=== PATIENT | male | born 1940 | race Caucasian/White ===

== ENCOUNTER → 2016-05-10 | Outpatient (CLI) | payer MEDICARE, BC ==
--- NOTE | 2016-05-10 08:41 | US ---
EXAMINATION TYPE: US abdomen complete DATE OF EXAM: 05/10/2016 8:14 AM COMPARISON: NONE CLINICAL HISTORY: R74.8 Elevated Liver Enzymes. EXAM MEASUREMENTS: Liver Length: 15.6 cm Gallbladder Wall: 0.3 cm CBD: 0.4 cm Spleen: 11.8 cm Right Kidney: 11.2 x 5.5 x 4.1 cm Left Kidney: 10.9 x 5.5 x 5.6 cm TECHNOLOGIST IMPRESSION: Pancreas: obscured by overlying bowel content Liver: limited evaluation,attenuating and slightly heterogenous Gallbladder: no evidence of stones Evidence for sonographic James's sign: no CBD: appears wnl Spleen: wnl Right Kidney: Nonshadowing echogenic area lower pole = 0.6cm nonspecific finding. Left Kidney: no evidence of hydronephrosis Upper IVC: wnl Abd Aorta: visualized portions appear wnl The liver is heterogeneously hyperechoic suggesting fatty infiltration. No worrisome intrahepatic refugio john dilatation is seen . Evaluation for focal masses is limited due to the heterogeneity. The intrahe patic portion of the IVC and visualized abdominal aorta are within normal limits. There is no eviden ce of cholelithiasis. Common bile duct is unremarkable. The visualized portions of the pancreas are homogenous. Portions of pancreas are obscured by overlying bowel gas. The spleen is unremarkable. Ki dneys are symmetric and free of hydronephrosis. No renal lesions are seen. IMPRESSION: Heterogeneous hyperechoic appearance could reflect fatty infiltration or underlying hepat ocellular disease. Imaging guided random biopsy for tissue analysis can be performed if desired.
== END | disposition home or self-care (01) ==
LOC: RADUSWWP 07:34
PROVIDERS: ATTEND Family Medicine
DX: K76.5 Hepatic veno-occlusive disease (principal); R74.8 Abnormal levels of other serum enzymes
CPT/HCPCS: 76700

== ENCOUNTER 2016-05-12 13:31 | Inpatient (IN) | payer MEDICARE, BC ==
[2016-05-12] MEDS ORDERED: MORPHINE SULFATE 4 MG/ML SYRINGE IVP STA (14:49)
[2016-05-12] MEDS ORDERED: SODIUM CHLORIDE 0.9% 1,000 ML IV STA (14:49)
[2016-05-12] MEDS ORDERED: ONDANSETRON 4 MG/2 ML VIAL IVP STA (14:49)
[2016-05-12 15:07] LABS: Basophils % (A) 0 %; CH 33.2; CHCM 32.6; Eosinophils % (A) 0 %; HCT 41.6 % (39.0-53.0); HDW 2.22; HGB 13.3 gm/dL (13.0-17.5); Luc # (Auto) 0.16; Luc % (Auto) 2; Lymphocytes # (A) 0.6 k/uL (1.0-4.8); Lymphocytes % (A) 7 %; MCH 32.8 pg (25.0-35.0); MCV 102.5 fL (80.0-100.0); Macrocytosis Slight; Mean Platelet Volume 8.3; Monocytes # (A) 0.6 k/uL (0-1.0); Monocytes % (A) 7 %; Neutrophils # (A) 7.6 k/uL (1.3-7.7); Neutrophils % (A) 84 %; RBC 4.06 m/uL (4.30-5.90); RDW 13.3 % (11.5-15.5); WBC (Perox) 8.59
[2016-05-12 15:09] LABS: Appearance,Urine Clear (Clear); Bacteria,Urine Few /hpf; Bilirubin,Urine 2+ (Negative); Glucose,Urine (UA) Negative (Negative); Ketones,Urine Trace (Negative); Leukocyte Esterase,Urine Negative (Negative); Mucus,Urine Moderate /hpf; Nitrite,Urine Negative (Negative); PH, Urine 5.5 (5.0-8.0); Particle Count 6674; Protein,Urine 1+ (Negative); RBC,Urine <1 /hpf (0-5); Specific Gravity,Urine 1.015 (1.001-1.035); UA Billing (MACRO vs. MICRO) MICRO; WBC,Urine 1 /hpf (0-5)
[2016-05-12 15:14] LABS: INR 1.2 (<1.1); Partial Thromboplastin Time 24.8 sec (22.0-30.0)
[2016-05-12 15:15] LABS: ALT 243 U/L (21-72); AST 241 U/L (17-59); Alkaline Phosphatase 543 U/L (38-126); Anion Gap 15 mmol/L; Blood Urea Nitrogen 18 mg/dL (9-20); Calcium 8.8 mg/dL (8.4-10.2); Carbon Dioxide 20 mmol/L (22-30); Chloride 99 mmol/L (98-107); Glucose 174 mg/dL (74-99); Non-African American GFR(MDRD) >60 (>60 ml/min/1.73 sqM); Potassium 4.4 mmol/L (3.5-5.1); Sodium 134 mmol/L (137-145); Total Bilirubin 8.3 mg/dL (0.2-1.3); Total Protein 6.9 g/dL (6.3-8.2)
--- NOTE | 2016-05-12 15:20 | XR ---
EXAMINATION TYPE: XR chest 1V portable DATE OF EXAM: 05/12/2016 3:13 PM Comparison: 03/21/2014 Clinical History: 75-year-old male chest pain Findings: Heart is upper limits of normal in size. Mild interstitial prominence appears chronic. High density n odule peripheral left upper lobe is unchanged suggesting a calcified granuloma. Strandy atelectasis a t the right base. No consolidation or pleural effusion. Impression: Chronic changes and some right basilar atelectasis. Prior granulomatous disease. No acute process jayro ntified.
--- NOTE | 2016-05-12 16:10 | ED ---
Abdominal Pain HPI - General Chief Complaint: Abdominal Pain Stated Complaint: Back Pain Time Seen by Provider: 05/12/16 14:20 Source: patient Mode of arrival: ambulatory Limitations: no limitations - History of Present Illness Initial Comments: Patient is a 75 old male with history of diabetes, hypertension, hyperlipidemia presenting with epigastric pain which radiates to the right flank/back. Patient states symptoms started approximately 3 days ago. Patient has not tried anything for the pain. Patient does not relate pain to food. noticed patient skin change to yellow. Patient wasn't feeling well for the past week he complained of nausea for which he follow-up with PCP who prescribed him Zofran ODT. Patient admits to chills 3 days ago. Denies fever, chest pain, shortness breath, vomiting, diarrhea, dysuria. - Related Data Home Medications Medication Instructions Recorded Confirmed Levothyroxine Sodium [Synthroid] 50 mcg PO DAILY 03/29/14 05/12/16 Lovastatin [Lovastatin] 40 mg PO DAILY 03/29/14 05/12/16 metFORMIN HCL 1,000 mg PO BID 03/29/14 05/12/16 Aspirin EC [Ecotrin Low Dose] 81 mg PO DAILY 05/12/16 05/12/16 Insulin Detemir [Levemir] 20 unit SQ QAM 05/12/16 05/12/16 Insulin Detemir [Levemir] 30 unit SQ W/SUPPER 05/12/16 05/12/16 Lisinopril 40 mg PO DAILY 05/12/16 05/12/16 Vit A/Vit C/Vit E/Zinc/Copper 1 cap PO DAILY 05/12/16 05/12/16 [ICAPS SOFTGEL] amLODIPine [Norvasc] 10 mg PO DAILY 05/12/16 05/12/16 Allergies Allergy/AdvReac Type Severity Reaction Status Date / Time bacitracin Allergy Rash/Hives Verified 05/12/16 14:52 [From Neosporin ([id number])] bacitracin zinc Allergy Rash/Hives Verified 05/12/16 14:52 [From Neosporin ([id number])] neomycin sulfate Allergy Rash/Hives Verified 05/12/16 14:52 [From Neosporin ([id number])] polymyxin B Allergy Rash/Hives Verified 05/12/16 14:52 [From Neosporin ([id number])] Review of Systems ROS Statement: Those systems with pertinent positive or pertinent negative responses have been documented in the HPI. Constitutional: No fever and +chills. HENT: No congestion, no rhinorrhea and no sore throat. Eyes: No discharge and no redness. Respiratory: No cough and no shortness of breath. Cardiovascular: No chest pain and no palpitations. Gastrointestinal: +nausea, no vomiting, +abdominal pain and no diarrhea. Genitourinary: No dysuria and no hematuria. Musculoskeletal: No back pain and no arthralgias. Skin: Positive jaundice. No pallor and no rash. Neurological: No dizziness and No headaches. ROS Other: All systems not noted in ROS Statement are negative. Past Medical History Past Medical History: Diabetes Mellitus, GERD/Reflux, Hyperlipidemia, Hypertension, Thyroid Disorder History of Any Multi-Drug Resistant Organisms: None Reported Past Surgical History: Orthopedic Surgery Additional Past Surgical History / Comment(s): tamiko shoulder Past Psychological History: No Psychological Hx Reported Smoking Status: Never smoker Past Alcohol Use History: None Reported Past Drug Use History: None Reported General Exam - General Exam Comments Initial Comments: Constitutional: Patient appears well-developed and well-nourished. Moderate distress. Head: Normocephalic and atraumatic. Eyes: Conjunctivae and EOM are normal. Right eye exhibits no discharge. Left eye exhibits no discharge. +scleral icterus. Neck: Normal range of motion. Neck supple. Cardiovascular: Normal rate and regular rhythm. No murmur heard. Pulmonary/Chest: Effort normal and breath sounds normal. No respiratory distress. No wheezes. Abdominal: Soft. No distension. Right upper quadrant tenderness. There is no rebound and no guarding. Reducible midline umbilical hernia. Musculoskeletal: Normal range of motion. No edema or tenderness. Neurological: Patient alert and oriented to person, place, and time. Skin: Jaundiced. Skin is warm and dry. Not diaphoretic. Nursing notes and vitals reviewed. Limitations: no limitations Course Vital Signs 05/12/16 05/12/16 05/12/16 13:49 15:30 17:37 Temperature 97.7 F Pulse Rate 60 64 70 Respiratory 16 18 16 Rate Blood Pressure 138/65 176/73 167/77 O2 Sat by Pulse 97 98 94 L Oximetry 05/12/16 19:05 Temperature 97.8 F Pulse Rate 70 Respiratory 17 Rate Blood Pressure 179/79 O2 Sat by Pulse 96 Oximetry - Reevaluation(s) Reevaluation #1: 05/12/16 16:11 Patient updated on laboratory results which corresponds patient's jaundice. Awaiting ultrasound. Patient feeling better after morphine. Reevaluation #2: 05/12/16 17:55 Patient updated on laboratory and ultrasound results. Patient was resting comfortably in bed. Course of stay improved. Denies pain. Discussed physical exam and diagnostic tests with patient. Questions answered and patient is agreeable to staying in the hospital. Discussed H&P and pertinent diagnostic tests with admitting physician who agrees with plan and accepts admission of patient. Requesting GI consult. Medical Decision Making - Medical Decision Making Patient is a 75-year-old male presenting with 4 day history of right upper quadrant pain which radiates to the back and jaundice. Pain controlled with morphine and IV fluids. CBC with WBC 9.0, hemoglobin 13.3, MCV 102.5, platelets 130. CMP shows total bilirubin 8.3, AST 241, ALT 243, alk phos 543. Chest x-ray, EKG and troponin negative. Lipase unremarkable. Abdominal ultrasound showed liver suggests fatty infiltrates. Gallbladder with sludge at the neck as well as gallbladder wall thickening. Interval increase in caliber of the bile duct at 5.7 when previous was 3.8. Discussed care with admitting physician who recommends GI consult. - Lab Data Result diagrams: 05/12/16 14:25 05/12/16 14:25 Lab Results 05/12/16 05/12/16 05/12/16 Range/Units 14:25 14:25 14:25 WBC 9.0 (3.8-10.6) k/uL RBC 4.06 L (4.30-5.90) m/uL Hgb 13.3 (13.0-17.5) gm/dL Hct 41.6 (39.0-53.0) % MCV 102.5 H (80.0-100.0) fL MCH 32.8 (25.0-35.0) pg MCHC 32.0 (31.0-37.0) g/dL RDW 13.3 (11.5-15.5) % Plt Count 130 L (150-450) k/uL Neutrophils % 84 % Lymphocytes % 7 % Monocytes % 7 % Eosinophils % 0 % Basophils % 0 % Neutrophils # 7.6 (1.3-7.7) k/uL Lymphocytes # 0.6 L (1.0-4.8) k/uL Monocytes # 0.6 (0-1.0) k/uL Eosinophils # 0.0 (0-0.7) k/uL Basophils # 0.0 (0-0.2) k/uL Macrocytosis Slight PT (9.0-12.0) sec INR (<1.1) APTT (22.0-30.0) sec Sodium 134 L (137-145) mmol/L Potassium 4.4 (3.5-5.1) mmol/L Chloride 99 (98-107) mmol/L Carbon Dioxide 20 L (22-30) mmol/L Anion Gap 15 mmol/L BUN 18 (9-20) mg/dL Creatinine 0.89 (0.66-1.25) mg/dL Est GFR (MDRD) Af Amer >60 (>60 ml/min/1.73 sqM) Est GFR (MDRD) Non-Af >60 (>60 ml/min/1.73 sqM) Glucose 174 H (74-99) mg/dL Calcium 8.8 (8.4-10.2) mg/dL Magnesium 1.8 (1.6-2.3) mg/dL Total Bilirubin 8.3 H (0.2-1.3) mg/dL AST 241 H (17-59) U/L ALT 243 H (21-72) U/L Alkaline Phosphatase 543 H (38-126) U/L Troponin I (0.000-0.034) ng/mL Total Protein 6.9 (6.3-8.2) g/dL Albumin 3.8 (3.5-5.0) g/dL Lipase 77 (23-300) U/L Urine Color Urine Appearance (Clear) Urine pH (5.0-8.0) Ur Specific [place] (1.001-1.035) Urine Protein (Negative) Urine Glucose (UA) (Negative) Urine Ketones (Negative) Urine Blood (Negative) Urine Nitrate (Negative) Urine Bilirubin (Negative) Urine Urobilinogen (<2.0) mg/dL Ur Leukocyte Esterase (Negative) Urine RBC (0-5) /hpf Urine WBC (0-5) /hpf Urine Bacteria (None) /hpf Hyaline Casts (0-2) /lpf Urine Mucus (None) /hpf 05/12/16 05/12/16 05/12/16 Range/Units 14:25 14:25 14:25 WBC (3.8-10.6) k/uL RBC (4.30-5.90) m/uL Hgb (13.0-17.5) gm/dL Hct (39.0-53.0) % MCV (80.0-100.0) fL MCH (25.0-35.0) pg MCHC (31.0-37.0) g/dL RDW (11.5-15.5) % Plt Count (150-450) k/uL Neutrophils % % Lymphocytes % % Monocytes % % Eosinophils % % Basophils % % Neutrophils # (1.3-7.7) k/uL Lymphocytes # (1.0-4.8) k/uL Monocytes # (0-1.0) k/uL Eosinophils # (0-0.7) k/uL Basophils # (0-0.2) k/uL Macrocytosis PT 12.0 (9.0-12.0) sec INR 1.2 (<1.1) APTT 24.8 (22.0-30.0) sec Sodium (137-145) mmol/L Potassium (3.5-5.1) mmol/L Chloride (98-107) mmol/L Carbon Dioxide (22-30) mmol/L Anion Gap mmol/L BUN (9-20) mg/dL Creatinine (0.66-1.25) mg/dL Est GFR (MDRD) Af Amer (>60 ml/min/1.73 sqM) Est GFR (MDRD) Non-Af (>60 ml/min/1.73 sqM) Glucose (74-99) mg/dL Calcium (8.4-10.2) mg/dL Magnesium (1.6-2.3) mg/dL Total Bilirubin (0.2-1.3) mg/dL AST (17-59) U/L ALT (21-72) U/L Alkaline Phosphatase (38-126) U/L Troponin I <0.012 (0.000-0.034) ng/mL Total Protein (6.3-8.2) g/dL Albumin (3.5-5.0) g/dL Lipase (23-300) U/L Urine Color Brown Urine Appearance Clear (Clear) Urine pH 5.5 (5.0-8.0) Ur Specific [place] 1.015 (1.001-1.035) Urine Protein 1+ H (Negative) Urine Glucose (UA) Negative (Negative) Urine Ketones Trace H (Negative) Urine Blood Trace H (Negative) Urine Nitrate Negative (Negative) Urine Bilirubin 2+ H (Negative) Urine Urobilinogen 4.0 (<2.0) mg/dL Ur Leukocyte Esterase Negative (Negative) Urine RBC <1 (0-5) /hpf Urine WBC 1 (0-5) /hpf Urine Bacteria Few H (None) /hpf Hyaline Casts 1 (0-2) /lpf Urine Mucus Moderate H (None) /hpf Rate 64. NSR. No ST-T wave changes. OH internal normal . Incomplete right bundle branch block. QTc duration normal. Disposition Clinical Impression: Obstructive jaundice Disposition: ADMITTED IP TO THIS HOSP Condition: Good Decision to Admit Reason: Admit from EC
--- NOTE | 2016-05-12 17:24 | US ---
EXAMINATION TYPE: US abdomen limited DATE OF EXAM: 05/12/2016 5:03 PM COMPARISON: Recent US in PACS CLINICAL HISTORY: 75-year-old male with abdominal pain. TECHNIQUE: Multiple sonographic images of the right upper quadrant were obtained. FINDINGS: Liver Length: 14.8 cm Gallbladder Wall: 0.4 cm CBD: 0.6 cm Right Kidney: 11.7 x 6.0 x 6.1 cm Pancreas: Only a small portion of the pancreatic body is seen. Remainder suboptimally visualized sec ondary to shadowing from bowel gas. Liver: Echogenic liver with diffuse coarsened echotexture. This secondarily limits assessment for fo sam lesion. Gallbladder: There is sludge collected at the gallbladder neck. Gallbladder wall is mildly thickened . Evidence for sonographic James's sign: No CBD: No measured at 5.7 mm versus 3.8 mm, previously. Right Kidney: No hydronephrosis. 4 mm echogenic focus at the lower pole suggestive of nonobstructive calculus. IMPRESSION: 1. Echogenic and heterogeneous liver suggests fatty infiltration or other nonspecific hepatocellular disease. 2. Sludge collected at the gallbladder neck now with mild gallbladder wall thickening. No evidence fo r a positive sonographic James sign. Gallbladder wall thickening is nonspecific and may be reactive to the underlying hepatocellular disease. Follow-up as clinically indicated. 3. Interval increase in caliber of the bile duct now 5.7 mm versus 3.8 mm, previously. Correlate with alkaline phosphatase and bilirubin levels to exclude early biliary obstruction.
[2016-05-12] MEDS ORDERED: ACETAMINOPHEN TAB 325 MG TAB PO PRN (17:51)
[2016-05-12] MEDS ORDERED: ONDANSETRON 4 MG/2 ML VIAL IVP PRN (17:51)
[2016-05-12] MEDS ORDERED: NALOXONE 0.4 MG/ML 1 ML VIAL IV PRN (17:51)
[2016-05-12] MEDS: MORPHINE SULFATE 4 MG/ML SYRINGE IV PRN (20:02)
[2016-05-12] MEDS: SODIUM CHLORIDE 0.9% 1,000 ML IV SCH (20:20)
[2016-05-12] MEDS: LEVOFLOXACIN 500MG-D5W PMX 500 MG in DEXTROSE/WATER 1 100ML.BAG IVPB SCH (22:14)
[2016-05-12] MEDS: metroNIDAZOLE-NS PMX 500 MG in SALINE 1 100ML.BAG IVPB SCH (23:20)
[2016-05-13 01:03] LABS: Hemoglobin A1C 7.2 % (4.2-6.1)
[2016-05-13] MEDS: MORPHINE SULFATE 4 MG/ML SYRINGE IV PRN ×4 (03:42→18:18)
[2016-05-13] MEDS: LEVOTHYROXINE 50 MCG TAB PO SCH (06:05)
[2016-05-13 07:57] LABS: Glucose,Whole Blood 166 mg/dL (75-99)
[2016-05-13] MEDS: ASPIRIN 81 MG CHEW PO SCH (08:02)
[2016-05-13] MEDS: metroNIDAZOLE-NS PMX 500 MG in SALINE 1 100ML.BAG IVPB SCH ×3 (08:02→23:00)
[2016-05-13] MEDS: LISINOPRIL 20 MG TAB PO SCH (08:02)
[2016-05-13] MEDS: INSULIN DETEMIR 100 UNIT/ML 10 ML VIAL SQ SCH ×2 (08:03→18:23)
[2016-05-13] MEDS: amLODIPine 10 MG TAB PO SCH (08:03)
[2016-05-13] MEDS: INSULIN LISPRO (humaLOG) 300 UNIT/3 ML VIAL SQ SCH ×4 (08:09→20:23)
[2016-05-13 09:01] LABS: Basophils % (A) 0 %; CH 32.8; CHCM 31.8; Eosinophils % (A) 1 %; HCT 38.6 % (39.0-53.0); HGB 12.4 gm/dL (13.0-17.5); Luc # (Auto) 0.18; Luc % (Auto) 3; Lymphocytes # (A) 0.5 k/uL (1.0-4.8); Lymphocytes % (A) 8 %; MCH 33.4 pg (25.0-35.0); MCHC 32.1 g/dL (31.0-37.0); MCV 103.9 fL (80.0-100.0); Macrocytosis Slight; Mean Platelet Volume 7.5; Monocytes # (A) 0.5 k/uL (0-1.0); Monocytes % (A) 8 %; Neutrophils # (A) 4.9 k/uL (1.3-7.7); Neutrophils % (A) 80 %; RBC 3.72 m/uL (4.30-5.90); RDW 13.3 % (11.5-15.5); WBC 6.1 k/uL (3.8-10.6); WBC (Perox) 6.36
[2016-05-13 09:09] LABS: ALT 413 U/L (21-72); AST 551 U/L (17-59); Alkaline Phosphatase 514 U/L (38-126); Anion Gap 12 mmol/L; Blood Urea Nitrogen 26 mg/dL (9-20); Calcium 8.4 mg/dL (8.4-10.2); Carbon Dioxide 22 mmol/L (22-30); Chloride 102 mmol/L (98-107); Glucose 166 mg/dL (74-99); Non-African American GFR(MDRD) >60 (>60 ml/min/1.73 sqM); Potassium 4.7 mmol/L (3.5-5.1); Sodium 136 mmol/L (137-145); Total Bilirubin 9.9 mg/dL (0.2-1.3); Total Protein 6.2 g/dL (6.3-8.2)
--- NOTE | 2016-05-13 11:51 | P.HPIM ---
History of Present Illness H&P Date: 05/13/16 Chief Complaint: Abdominal pain and jaundice Is a 75-year-old male, patient of Dr. Mccabe. He has a known past medical history of diabetes mellitus, hypertension and hyperlipidemia. Patient reports having right upper quadrant and epigastric pain for about a week. The pain did radiate to his back. He also has noticed that his skin is been yellow for about 3 days. He had an abdominal ultrasound with his PCP in May 10. A repeat ultrasound done in the emergency room room shows echogenic and heterogenesis liver she has fatty infiltration or other nonspecific hepatocellular disease. Sludge collected in the gallbladder neck now with mild gallbladder wall thickening. No evidence of for a positive James sign. Gallbladder wall thickening is nonspecific and may be reactive to the underlying hepatocellular disease. Interval increase in caliber of the bile duct now 5.7 mm versus 3.8 mm. Patient had a total bilirubin 8.3, AST 241, ALT 243 and Alk phos 543. He is jaundiced on exam. He was started on IV Levaquin and Flagyl in the emergency room. GI service has been consulted. Patient denies any chest pain or shortness breath. He has had some nausea with one episode of vomiting. Denies any bowel movement changes. Denies any burning with urination. Has noted that his urine is darker. Patient's cholesterol medication was discontinued. Denies any history of hepatitis. Denies any alcohol use. Review of Systems Please refer to HPI otherwise unremarkable Past Medical History Past Medical History: Diabetes Mellitus, GERD/Reflux, Hyperlipidemia, Hypertension, Thyroid Disorder History of Any Multi-Drug Resistant Organisms: None Reported Past Surgical History: Orthopedic Surgery Additional Past Surgical History / Comment(s): tamiko shoulder Past Anesthesia/Blood Transfusion Reactions: No Reported Reaction Past Psychological History: No Psychological Hx Reported Smoking Status: Never smoker Past Alcohol Use History: None Reported Past Drug Use History: None Reported - Past Family History Father Family Medical History: Cancer, Respiratory Disorder Medications and Allergies Home Medications Medication Instructions Recorded Confirmed Type Levothyroxine Sodium [Synthroid] 50 mcg PO DAILY 03/29/14 05/12/16 History Lovastatin [Lovastatin] 40 mg PO DAILY 03/29/14 05/12/16 History metFORMIN HCL 1,000 mg PO BID 03/29/14 05/12/16 History Aspirin EC [Ecotrin Low Dose] 81 mg PO DAILY 05/12/16 05/12/16 History Insulin Detemir [Levemir] 20 unit SQ QAM 05/12/16 05/12/16 History Insulin Detemir [Levemir] 30 unit SQ W/SUPPER 05/12/16 05/12/16 History Lisinopril 40 mg PO DAILY 05/12/16 05/12/16 History Vit A/Vit C/Vit E/Zinc/Copper 1 cap PO DAILY 05/12/16 05/12/16 History [ICAPS SOFTGEL] amLODIPine [Norvasc] 10 mg PO DAILY 05/12/16 05/12/16 History Allergies Allergy/AdvReac Type Severity Reaction Status Date / Time bacitracin Allergy Rash/Hives Verified 05/12/16 14:52 [From Neosporin ([id number])] bacitracin zinc Allergy Rash/Hives Verified 05/12/16 14:52 [From Neosporin ([id number])] neomycin sulfate Allergy Rash/Hives Verified 05/12/16 14:52 [From Neosporin ([id number])] polymyxin B Allergy Rash/Hives Verified 05/12/16 14:52 [From Neosporin ([id number])] Physical Exam Vitals: Vital Signs Temp Pulse Pulse Resp BP BP BP 05/13/16 07:00 98.7 F 67 16 112/54 05/12/16 23:00 99.4 F 76 18 111/59 05/12/16 20:45 100.2 F H 80 18 167/76 05/12/16 19:05 97.8 F 70 17 179/79 Pulse Ox 05/13/16 07:00 93 L 05/12/16 23:00 93 L 05/12/16 20:45 96 05/12/16 19:05 96 Intake and Output 05/12/16 05/13/16 05/13/16 22:59 06:59 14:59 Intake Total 0 0 Balance 0 0 Intake: Oral 0 0 Other: Voiding Method Toilet # Voids 0 0 Weight 90 kg HEENT scleral icterus Head normocephalic Neck supple Lungs clear to auscultation bilaterally no wheezing or crackles Heart regular rate and rhythm S1-S2, no rub or gallop Abdomen is soft nondistended. Tenderness in the right upper quadrant positive bowel sounds Extremities no edema Neuro alert and orientated to 3 Skin: Jaundice Results CBC & Chem 7: 05/13/16 07:18 05/13/16 07:18 Labs: Abnormal Lab Results - Last 24 Hours (Table) 05/12/16 05/13/16 05/13/16 Range/Units 21:46 07:18 07:18 RBC 3.72 L (4.30-5.90) m/uL Hgb 12.4 L (13.0-17.5) gm/dL Hct 38.6 L (39.0-53.0) % MCV 103.9 H (80.0-100.0) fL Plt Count 117 L (150-450) k/uL Lymphocytes # 0.5 L (1.0-4.8) k/uL Sodium 136 L (137-145) mmol/L BUN 26 H (9-20) mg/dL Glucose 166 H (74-99) mg/dL POC Glucose (mg/dL) (75-99) mg/dL Hemoglobin A1c 7.2 H (4.2-6.1) % Total Bilirubin 9.9 H (0.2-1.3) mg/dL AST 551 H (17-59) U/L ALT 413 H (21-72) U/L Alkaline Phosphatase 514 H (38-126) U/L Total Protein 6.2 L (6.3-8.2) g/dL Albumin 3.3 L (3.5-5.0) g/dL 05/13/16 Range/Units 07:54 RBC (4.30-5.90) m/uL Hgb (13.0-17.5) gm/dL Hct (39.0-53.0) % MCV (80.0-100.0) fL Plt Count (150-450) k/uL Lymphocytes # (1.0-4.8) k/uL Sodium (137-145) mmol/L BUN (9-20) mg/dL Glucose (74-99) mg/dL POC Glucose (mg/dL) 166 H (75-99) mg/dL Hemoglobin A1c (4.2-6.1) % Total Bilirubin (0.2-1.3) mg/dL AST (17-59) U/L ALT (21-72) U/L Alkaline Phosphatase (38-126) U/L Total Protein (6.3-8.2) g/dL Albumin (3.5-5.0) g/dL Thrombosis Risk Factor Assmnt - Choose All That Apply Any of the Below Risk Factors Present?: Yes Each Factor Represents 1 point: Obesity (BMI >25) Other Risk Factors: Yes Each Risk Factor Represents 3 Points: Age 75 years or older, History of DVT/PE Other congenital or acquired thrombophilia - If yes, enter type in comment: No Thrombosis Risk Factor Assessment Total Risk Factor Score: 7 Thrombosis Risk Factor Assessment Level: High Risk Assessment and Plan Plan: 1. Epigastric and right upper quadrant abdominal pain with obstructive jaundice. Abdominal ultrasound showed fatty infiltration of the liver as well as sludge in the gallbladder neck with gallbladder wall thickening nonspecific and may be reactive to the underlying hepatocellular disease. Also increase in the caliber of the bile duct from 5.7 mm versus 3.8 mm. Total bilirubin of 8.3- 9.9. AST is elevated at 551, ALT 413 and alk phos 514. GI service has been consulted for possible ERCP. Lovastatin discontinued. Patient placed on IV Levaquin and IV Flagyl. Continue IV morphine as needed for pain control 2. Insulin-dependent diabetes mellitus, type II: Continue the Levemir and sliding scale coverage. Hold metformin. Hemoglobin A1c of 7.2 3. Essential hypertension continue the lisinopril and Norvasc 4. Right basilar atelectasis noted on chest x-ray: Order incentive spirometer. Oxygen level 93% on room air 5. Hypothyroidism resume his Synthroid GI prophylaxis Protonix and DVT prophylaxis subcu heparin Time with Patient: Greater than 30 (Greater than 50% of the total time spent in counseling and coordination of care.I performed an examination of the patient and discussed their management with the physician Jockey Agent. I have reviewed the Physician Jockey Agent's notes and agree with the documented findings and plan of care)
[2016-05-13 11:56] LABS: Glucose,Whole Blood 188 mg/dL (75-99)
[2016-05-13] MEDS: VIT A,C & E-LUTEIN-MINERALS 1 EACH TAB PO SCH (13:41)
[2016-05-13] MEDS: SODIUM CHLORIDE 0.9% 1,000 ML IV SCH (13:42)
[2016-05-13 16:48] LABS: Glucose,Whole Blood 170 mg/dL (75-99)
[2016-05-13] MEDS: LEVOFLOXACIN 500MG-D5W PMX 500 MG in DEXTROSE/WATER 1 100ML.BAG IVPB SCH (20:23)
[2016-05-13] MEDS: HEPARIN SODIUM,PORCINE 5,000 UNIT/ML 1 ML VIAL SQ SCH (20:23)
[2016-05-13 20:38] LABS: Glucose,Whole Blood 150 mg/dL (75-99)
[2016-05-14] MEDS: PIPERACILLIN-TAZOBACTAM 3.375 GM in DEXTROSE/WATER 1 50ML.BAG IVPB SCH ×4 (00:03→23:36)
[2016-05-14] MEDS: MORPHINE SULFATE 4 MG/ML SYRINGE IV PRN ×2 (00:11→05:12)
[2016-05-14] MEDS: LEVOTHYROXINE 50 MCG TAB PO SCH (05:21)
[2016-05-14 07:48] LABS: Glucose,Whole Blood 88 mg/dL (75-99)
[2016-05-14] MEDS: metroNIDAZOLE-NS PMX 500 MG in SALINE 1 100ML.BAG IVPB SCH ×2 (08:28→15:03)
[2016-05-14] MEDS: HEPARIN SODIUM,PORCINE 5,000 UNIT/ML 1 ML VIAL SQ SCH ×2 (08:29→21:34)
[2016-05-14] MEDS: INSULIN DETEMIR 100 UNIT/ML 10 ML VIAL SQ SCH ×2 (08:29→17:28)
[2016-05-14 09:42] LABS: Basophils % (A) 1 %; CH 33.3; CHCM 32.3; Eosinophils % (A) 1 %; HCT 37.3 % (39.0-53.0); HGB 11.8 gm/dL (13.0-17.5); Luc # (Auto) 0.14; Luc % (Auto) 3; Lymphocytes # (A) 0.6 k/uL (1.0-4.8); Lymphocytes % (A) 13 %; MCH 32.8 pg (25.0-35.0); MCHC 31.6 g/dL (31.0-37.0); MCV 103.6 fL (80.0-100.0); Macrocytosis Slight; Mean Platelet Volume 8.2; Monocytes # (A) 0.3 k/uL (0-1.0); Monocytes % (A) 7 %; Neutrophils # (A) 3.5 k/uL (1.3-7.7); Neutrophils % (A) 76 %; RDW 13.4 % (11.5-15.5); WBC 4.6 k/uL (3.8-10.6); WBC (Perox) 4.89
[2016-05-14] MEDS: INSULIN LISPRO (humaLOG) 300 UNIT/3 ML VIAL SQ SCH ×4 (09:42→21:34)
[2016-05-14 09:56] LABS: ALT 357 U/L (21-72); AST 360 U/L (17-59); Alkaline Phosphatase 577 U/L (38-126); Anion Gap 11 mmol/L; Blood Urea Nitrogen 27 mg/dL (9-20); Calcium 8.3 mg/dL (8.4-10.2); Carbon Dioxide 22 mmol/L (22-30); Chloride 104 mmol/L (98-107); Glucose 111 mg/dL (74-99); Non-African American GFR(MDRD) >60 (>60 ml/min/1.73 sqM); Potassium 4.1 mmol/L (3.5-5.1); Sodium 137 mmol/L (137-145); Total Bilirubin 9.3 mg/dL (0.2-1.3); Total Protein 6.1 g/dL (6.3-8.2)
[2016-05-14 11:57] LABS: Glucose,Whole Blood 119 mg/dL (75-99)
[2016-05-14] MEDS ORDERED: LIDOCAINE 1% INJ 10MG/ML (20 ML MDV) ONE (12:29)
[2016-05-14] MEDS ORDERED: PROPOFOL 10 MG/ML 20 ML VIAL IV ONE (12:29)
[2016-05-14] MEDS ORDERED: IV FLUID CONTINUATION 600 ML IV ONE (12:32)
[2016-05-14] MEDS ORDERED: INDOMETHACIN 50MG SUPPOSITORY RECTAL ONE (12:45)
[2016-05-14] MEDS ORDERED: IOHEXOL 300 MG/ML 50 ML BOTTLE INJ ONE (13:17)
--- NOTE | 2016-05-14 13:42 | P.PCN ---
Date of Procedure: 05/14/16 Procedure(s) Performed: Procedure: Endoscopic retrograde cholangiogram the and sphincterotomy with the passing of balloon catheter for extraction of common bile duct stone. Preoperative diagnosis: Obstructive jaundice. Postoperative diagnosis: Common bile duct stone, S/P sphincterotomy with passing of the 11.5 mm balloon catheter through the sphincterotomy site fully inflated multiple times. Preparation sedation: Was provided by anesthesia. Brief clinical history: The patient is a 75-year-old male who was admitted to the hospital because of abdominal pain and jaundice. He has a known past medical history of diabetes mellitus, hypertension and hyperlipidemia. Patient reports having right upper quadrant and epigastric pain for about a week prior to admission. The pain radiated to his back. He also has noticed 3 days prior that his skin is turning yellow. He had an abdominal ultrasound with Dr rey, his PCP, on May 10. A repeat ultrasound done in the emergency room room showed echogenic and heterogenesis liver consistent with fatty infiltration or other nonspecific hepatocellular disease. Sludge seen collected in the gallbladder neck with mild gallbladder wall thickening. No evidence of a positive James sign. There was interval increase in caliber of the bile duct now 5.7 mm versus 3.8 mm. Patient had a total bilirubin 8.3, AST 241, ALT 243 and Alk phos 543 on admission. He was started on IV Levaquin and Flagyl in the emergency room. We were consulted regarding his jaundice and I scheduled this ERCP for suspected common bile duct stone. Patient denies any chest pain or shortness breath. He has had some nausea with one episode of vomiting. Denies any bowel movement changes. Denies any burning with urination. Has noted that his urine is darker. Patient's cholesterol medication was discontinued. Denies any history of hepatitis. Denies any alcohol use. Procedure: With the patient in the prone position and after informed consent and adequate sedation, I passed the Olympus video duodenoscope down the esophagus into the stomach then passed it through the pylorus into the duodenum and brought the papilla into view. There was a wide mouth duodenal diverticulum alongside the papilla. Initial cannulation and injection with dye resulted in opacification of the common bile duct and biliary tree. The CBD was slightly dilated and there was a filling defect consistent with a stone measuring less than 1 cm. At this point, I exchanged the catheter for a guidewire, then I advanced the sphincterotome over the guidewire and performed adequate sphincterotomy. Following that, I advanced the balloon catheter over the guidewire into the proximal common bile duct and inflated it to 11.5 mm and withdrew it couple times fully inflated. I did not notice the stone come through in this semi-blind maneuver. The patient tolerated the procedure well and did not have any immediate complications. Plan: I summarized the findings to the patient and his . Will allow clear liquids today and check his labs in the morning. Consideration would be made for surgical evaluation for cholecystectomy.
--- NOTE | 2016-05-14 13:53 | FL ---
EXAMINATION TYPE: FL ERCP DATE OF EXAM: 05/14/2016 1:27 PM CLINICAL HISTORY: Common bile duct obstruction. TECHNIQUE: Fluoroscopy. COMPARISON: None. FINDINGS: Fluoroscopic guidance was provided during ERCP procedure performed by GI doctor, Dr. Madden. A total of 2.45 minutes of fluoroscopic time was utilized during the procedure and 2 spot images ar e acquired. Images acquired show filling defect possible stone. Please refer to procedure note for fu rther details as I was not present nor performed procedure. IMPRESSION: As Above.
[2016-05-14] MEDS: amLODIPine 10 MG TAB PO SCH (14:09)
[2016-05-14] MEDS: VIT A,C & E-LUTEIN-MINERALS 1 EACH TAB PO SCH (14:09)
[2016-05-14] MEDS: LISINOPRIL 20 MG TAB PO SCH (14:09)
[2016-05-14] MEDS: PANTOPRAZOLE 40 MG TABLET PO SCH (14:09)
[2016-05-14] MEDS: ASPIRIN 81 MG CHEW PO SCH ×2 (14:09→14:11)
[2016-05-14] MEDS: SODIUM CHLORIDE 0.9% 1,000 ML IV SCH (14:10)
[2016-05-14] MEDS ORDERED: PNEUMOCOCCAL VACC-PNEUMOVAX 23 25 MCG/0.5 ML VIAL IM ONE (16:04)
--- NOTE | 2016-05-14 16:29 | P.PN ---
Subjective Patient is doing well today. He tolerated the procedure well. Objective - Vital Signs Vital signs: Vital Signs Temp 98.2 F 05/14/16 15:00 Pulse 66 05/14/16 15:00 Resp 20 05/14/16 15:00 BP 143/72 05/14/16 15:00 Pulse Ox 96 05/14/16 15:00 Intake & Output 05/13/16 05/14/16 05/14/16 18:59 06:59 18:59 Intake Total 540 350 400 Balance 540 350 400 Intake: IV 400 Oral 540 350 Other: Voiding Method Toilet Toilet # Voids 2 2 1 - Exam General: The patient is awake and alert, in no distress Eye: there is normal conjunctiva bilaterally. Neck: The neck is supple, there is no JVD. Cardiovascular: Normal S1-S2, no S3-S4, no murmurs. Respiratory: Lungs clear to auscultation bilaterally Gastrointestinal: Abdomen is soft, nontender Musculoskeletal: There is no pedal edema. Neurological:. Speech is normal. Skin: Skin is warm and dry - Labs CBC & Chem 7: 05/14/16 09:30 05/14/16 09:30 Labs: Abnormal Lab Results - Last 24 Hours (Table) 05/13/16 05/13/16 05/14/16 Range/Units 16:44 20:21 09:30 RBC 3.60 L (4.30-5.90) m/uL Hgb 11.8 L (13.0-17.5) gm/dL Hct 37.3 L (39.0-53.0) % MCV 103.6 H (80.0-100.0) fL Lymphocytes # 0.6 L (1.0-4.8) k/uL BUN (9-20) mg/dL Glucose (74-99) mg/dL POC Glucose (mg/dL) 170 H 150 H (75-99) mg/dL Calcium (8.4-10.2) mg/dL Total Bilirubin (0.2-1.3) mg/dL AST (17-59) U/L ALT (21-72) U/L Alkaline Phosphatase (38-126) U/L Total Protein (6.3-8.2) g/dL Albumin (3.5-5.0) g/dL 05/14/16 05/14/16 Range/Units 09:30 11:55 RBC (4.30-5.90) m/uL Hgb (13.0-17.5) gm/dL Hct (39.0-53.0) % MCV (80.0-100.0) fL Lymphocytes # (1.0-4.8) k/uL BUN 27 H (9-20) mg/dL Glucose 111 H (74-99) mg/dL POC Glucose (mg/dL) 119 H (75-99) mg/dL Calcium 8.3 L (8.4-10.2) mg/dL Total Bilirubin 9.3 H (0.2-1.3) mg/dL AST 360 H (17-59) U/L ALT 357 H (21-72) U/L Alkaline Phosphatase 577 H (38-126) U/L Total Protein 6.1 L (6.3-8.2) g/dL Albumin 3.2 L (3.5-5.0) g/dL Microbiology - Last 24 Hours (Table) 05/13/16 07:18 Blood Culture - Preliminary Blood No Growth after 24 hours 05/12/16 21:46 Blood Culture Gram Stain - Preliminary Blood 05/12/16 21:46 Blood Culture - Preliminary Blood Assessment and Plan Plan: 1. Obstructive jaundice status post ERCP with sphincterectomy and common bile duct stone extraction. I would consult general surgery for evaluation of possible cholecystectomy 2. Ascending cholangitis: On broad-spectrum antibiotic followed by infectious disease 3. Transaminitis: Related to #1 and 2. Continue to hold statin for now. 4. Insulin-dependent diabetes mellitus, type II: Continue the Levemir and sliding scale coverage. Hold metformin. Hemoglobin A1c of 7.2 5. Essential hypertension continue the lisinopril and Norvasc 6. Right basilar atelectasis noted on chest x-ray: Order incentive spirometer.
[2016-05-14 17:20] LABS: Glucose,Whole Blood 200 mg/dL (75-99)
--- NOTE | 2016-05-14 18:57 | P.GSCN ---
History of Present Illness Consult date: 05/14/16 Reason for Consult: Choledocholithiasis History of present illness: Patient hospitalized with right upper quadrant pain that began 2 days ago. He started feeling shaking spontaneously. Came to the hospital for further evaluation. He had a small volume of emesis initially followed by a large emesis. He is found have evidence of jaundicewith an elevated bilirubin as well. He underwent an ERCP earlier today and a 1 cm stone was felt to be removed at that time. Gallbladder ultrasound shows sludge. He feels better at this time. He is tolerating a liquid diet. His family apparently noticed his skin turning yellow 3-4 days prior to admission. He does admit to dark-colored urine. White blood cell count has been normal. Bilirubin was as high as 9.9. Review of Systems The patient denies any acute changes in his vision or hearing, no dysphagia or odynophagia, no chest pain or shortness of breath, no dysuria or hematuria, no headache, no runny nose, no rectal bleeding or melena, no unexplained weight loss Past Medical History Past Medical History: Diabetes Mellitus, GERD/Reflux, Hyperlipidemia, Hypertension, Thyroid Disorder History of Any Multi-Drug Resistant Organisms: None Reported Past Surgical History: Orthopedic Surgery Additional Past Surgical History / Comment(s): tamiko shoulder Past Anesthesia/Blood Transfusion Reactions: No Reported Reaction Past Psychological History: No Psychological Hx Reported Smoking Status: Never smoker Past Alcohol Use History: None Reported Past Drug Use History: None Reported - Past Family History Father Family Medical History: Cancer, Respiratory Disorder Medications and Allergies Home Medications Medication Instructions Recorded Confirmed Type Levothyroxine Sodium [Synthroid] 50 mcg PO DAILY 03/29/14 05/12/16 History Lovastatin [Lovastatin] 40 mg PO DAILY 03/29/14 05/12/16 History metFORMIN HCL 1,000 mg PO BID 03/29/14 05/12/16 History Aspirin EC [Ecotrin Low Dose] 81 mg PO DAILY 05/12/16 05/12/16 History Insulin Detemir [Levemir] 20 unit SQ QAM 05/12/16 05/12/16 History Insulin Detemir [Levemir] 30 unit SQ W/SUPPER 05/12/16 05/12/16 History Lisinopril 40 mg PO DAILY 05/12/16 05/12/16 History Vit A/Vit C/Vit E/Zinc/Copper 1 cap PO DAILY 05/12/16 05/12/16 History [ICAPS SOFTGEL] amLODIPine [Norvasc] 10 mg PO DAILY 05/12/16 05/12/16 History Allergies Allergy/AdvReac Type Severity Reaction Status Date / Time bacitracin Allergy Rash/Hives Verified 05/12/16 14:52 [From Neosporin ([id number])] bacitracin zinc Allergy Rash/Hives Verified 05/12/16 14:52 [From Neosporin ([id number])] neomycin sulfate Allergy Rash/Hives Verified 05/12/16 14:52 [From Neosporin ([id number])] polymyxin B Allergy Rash/Hives Verified 05/12/16 14:52 [From Neosporin ([id number])] Surgical - Exam Vital Signs Temp Pulse Resp BP Pulse Ox 97.7 F 60 16 138/65 97 05/12/16 13:49 05/12/16 13:49 05/12/16 13:49 05/12/16 13:49 05/12/16 13:49 Physical exam: General: Well-developed, well-nourished, jaundiced skin noted HEENT: Normocephalic, sclerae icteric Abdomen: Nontender, nondistended Extremities: No edema Neuro: Alert and oriented Results - Labs 05/14/16 09:30 05/14/16 09:30 Abnormal Lab Results - Last 24 Hours (Table) 05/13/16 05/14/16 05/14/16 Range/Units 20:21 09:30 09:30 RBC 3.60 L (4.30-5.90) m/uL Hgb 11.8 L (13.0-17.5) gm/dL Hct 37.3 L (39.0-53.0) % MCV 103.6 H (80.0-100.0) fL Lymphocytes # 0.6 L (1.0-4.8) k/uL BUN 27 H (9-20) mg/dL Glucose 111 H (74-99) mg/dL POC Glucose (mg/dL) 150 H (75-99) mg/dL Calcium 8.3 L (8.4-10.2) mg/dL Total Bilirubin 9.3 H (0.2-1.3) mg/dL AST 360 H (17-59) U/L ALT 357 H (21-72) U/L Alkaline Phosphatase 577 H (38-126) U/L Total Protein 6.1 L (6.3-8.2) g/dL Albumin 3.2 L (3.5-5.0) g/dL 05/14/16 05/14/16 Range/Units 11:55 17:03 RBC (4.30-5.90) m/uL Hgb (13.0-17.5) gm/dL Hct (39.0-53.0) % MCV (80.0-100.0) fL Lymphocytes # (1.0-4.8) k/uL BUN (9-20) mg/dL Glucose (74-99) mg/dL POC Glucose (mg/dL) 119 H 200 H (75-99) mg/dL Calcium (8.4-10.2) mg/dL Total Bilirubin (0.2-1.3) mg/dL AST (17-59) U/L ALT (21-72) U/L Alkaline Phosphatase (38-126) U/L Total Protein (6.3-8.2) g/dL Albumin (3.5-5.0) g/dL Microbiology - Last 24 Hours (Table) 05/13/16 07:18 Blood Culture - Preliminary Blood No Growth after 24 hours 05/12/16 21:46 Blood Culture Gram Stain - Preliminary Blood 05/12/16 21:46 Blood Culture - Preliminary Blood Diabetes panel 05/14/16 Range/Units 09:30 Sodium 137 (137-145) mmol/L Potassium 4.1 (3.5-5.1) mmol/L Chloride 104 (98-107) mmol/L Carbon Dioxide 22 (22-30) mmol/L BUN 27 H (9-20) mg/dL Creatinine 0.91 (0.66-1.25) mg/dL Glucose 111 H (74-99) mg/dL Calcium 8.3 L (8.4-10.2) mg/dL AST 360 H (17-59) U/L ALT 357 H (21-72) U/L Alkaline Phosphatase 577 H (38-126) U/L Total Protein 6.1 L (6.3-8.2) g/dL Albumin 3.2 L (3.5-5.0) g/dL Calcium panel 05/14/16 Range/Units 09:30 Calcium 8.3 L (8.4-10.2) mg/dL Albumin 3.2 L (3.5-5.0) g/dL Pituitary panel 05/14/16 Range/Units 09:30 Sodium 137 (137-145) mmol/L Potassium 4.1 (3.5-5.1) mmol/L Chloride 104 (98-107) mmol/L Carbon Dioxide 22 (22-30) mmol/L BUN 27 H (9-20) mg/dL Creatinine 0.91 (0.66-1.25) mg/dL Glucose 111 H (74-99) mg/dL Calcium 8.3 L (8.4-10.2) mg/dL Adrenal panel 05/14/16 Range/Units 09:30 Sodium 137 (137-145) mmol/L Potassium 4.1 (3.5-5.1) mmol/L Chloride 104 (98-107) mmol/L Carbon Dioxide 22 (22-30) mmol/L BUN 27 H (9-20) mg/dL Creatinine 0.91 (0.66-1.25) mg/dL Glucose 111 H (74-99) mg/dL Calcium 8.3 L (8.4-10.2) mg/dL Total Bilirubin 9.3 H (0.2-1.3) mg/dL AST 360 H (17-59) U/L ALT 357 H (21-72) U/L Alkaline Phosphatase 577 H (38-126) U/L Total Protein 6.1 L (6.3-8.2) g/dL Albumin 3.2 L (3.5-5.0) g/dL Assessment and Plan (1) Choledocholithiasis Narrative/Plan: Continue empiric antibiotics. Recheck lab work tomorrow. Will require cholecystectomy to prevent future episodes. This may or may not be performed during this hospitalization. Status: Acute
--- NOTE | 2016-05-14 19:56 | CONS ---
DATE OF CONSULTATION: 05/14/2016 REASON FOR CONSULTATION: Bacteremia. HISTORY OF PRESENT ILLNESS: The patient is a 75-year-old male presenting to the ER at [facility] on Friday evening with abdominal pain. Pain has been mostly in the epigastric and right upper quadrant area radiating to his flank. It started on Friday morning. The patient did not have any specific activity that that part of the pain. Pain is described to be sharp, almost 10 out of 10 and severe. He did have an episode of vomiting but no significant diarrhea. The patient has been complaining of chills and he did have a low-grade fever of 100.2 when he came to the ER. Patient did have a normal white count of 9.0. However, the patient was noticed to have elevated liver enzymes with a bilirubin of 8.3. Subsequently an ultrasound of the abdomen was done which showed echogenic and heterogeneous liver suggestive of fatty infiltration, sludge collected at the gallbladder neck, now with mild gallbladder wall thickening. No evidence of positive James's sign. Increase in the caliber of the bile duct, now 5.7 mm. Patient did have blood cultures drawn which came back positive with Gram-negative bacilli. Patient was on Levaquin and Flagyl. I was asked to see the patient for further recommendations. I did switch the antibiotic yesterday to Zosyn, pending the evaluation. The patient was evaluated this morning will waiting for his ERCP. Patient's abdominal pain seemed to have improved, though. No further nausea or vomiting. He did have yellow discoloration of his sclerae. Denies having any chest pain or shortness of breath or cough and no urinary symptoms. REVIEW OF SYSTEMS: CONSTITUTIONAL: Positive for weakness and low-grade fever. EYES: No complaint. ENT: No complaint. RESPIRATORY: No complaint. CARDIOVASCULAR: No complaint. GENITOURINARY: No complaint. GASTROINTESTINAL: As per HPI. MUSCULOSKELETAL: No complaint. INTEGUMENTARY: No complaint. PSYCHOLOGICAL: No complaint. ENDOCRINE: No complaint. NEUROLOGIC: No complaint. PAST MEDICAL HISTORY: 1. Diabetes mellitus. 2. Gastroesophageal reflux disease. 3. Hypertension. 4. Hyperlipidemia. 5. Hypothyroidism. PAST SURGICAL HISTORY: Bilateral shoulder surgery. SOCIAL HISTORY: No history of smoking, drinking or drug use. . Lives with his . FAMILY HISTORY: Father with history of cancer. ALLERGIES: 1. BACITRACIN. 2. NEOMYCIN. 3. POLYMYXIN. Medications currently include: 1. Tylenol. 2. Norvasc. 3. Aspirin. 4. Heparin. 5. Levemir. 6. Humalog. 7. Synthroid. 8. Zestril. 9. Flagyl. 10. Zofran. 11. Piperacillin tazobactam. On examination, blood pressure is 143/72 with a pulse of 66, temperature 98.2. He is 96% on room air. General description is an elderly male lying in bed in no distress. No tachypnea or accessory muscle of respiration use. HEENT examination shows scleral icterus is positive. Oral mucous membrane is dry. No significant erythema or thrush. NECK: Trachea is central. No thyromegaly. LUNGS: Unlabored breathing. Clear to auscultation anteriorly. HEART: S1, S2. Regular rate and rhythm. ABDOMEN: Soft. No significant tenderness. No guarding or rigidity. No organomegaly. EXTREMITIES: No edema of the feet. SKIN EXAMINATION: No rash or mass palpable. Neurologically patient is awake, alert, oriented x3. Mood and affect normal. LABS: Hemoglobin is 11.8, white count 4.6 with a BUN of 27, creatinine 0.91. Electrolytes have been normal. Liver enzymes are elevated. Bilirubin is up to 9.3. Blood culture with Gram-negative bacilli. Follow-up blood culture is negative so far. DIAGNOSTIC IMPRESSION AND PLAN: Patient with Gram-negative bacteremia admitted to the hospital with abdominal pain with evidence of jaundice, likely secondary to ascending cholangitis in a patient with likely common bile duct stone and likely from enteric Gram-negative pathogen, as the patient has not been on antibiotics in the recent past; could be sensitive such as Escherichia coli or klebsiella. PLAN: 1. Zosyn to continue at 3.375 grams q.8 hours and discontinue the Flagyl, as more likely aerobic Gram-negative infection. 2. Await the ERCP and possible extraction of the stone. 3. Will follow up on his clinical condition and cultures to further adjust medication if needed. Thank you for this consultation. Will follow this patient along with you. ERICK
[2016-05-14 21:02] LABS: Glucose,Whole Blood 197 mg/dL (75-99)
[2016-05-15 03:08] LABS: Glucose,Whole Blood 96 mg/dL (75-99)
[2016-05-15] MEDS: SODIUM CHLORIDE 0.9% 1,000 ML IV SCH (06:05)
[2016-05-15] MEDS: LEVOTHYROXINE 50 MCG TAB PO SCH (06:31)
[2016-05-15 07:30] LABS: Glucose,Whole Blood 93 mg/dL (75-99)
[2016-05-15] MEDS: INSULIN LISPRO (humaLOG) 300 UNIT/3 ML VIAL SQ SCH ×4 (07:38→21:27)
[2016-05-15] MEDS: INSULIN DETEMIR 100 UNIT/ML 10 ML VIAL SQ SCH ×2 (07:58→17:06)
[2016-05-15] MEDS: PANTOPRAZOLE 40 MG TABLET PO SCH (07:58)
[2016-05-15] MEDS: ASPIRIN 81 MG CHEW PO SCH (07:58)
[2016-05-15] MEDS: amLODIPine 10 MG TAB PO SCH (07:58)
[2016-05-15] MEDS: LISINOPRIL 20 MG TAB PO SCH (07:59)
[2016-05-15] MEDS: HEPARIN SODIUM,PORCINE 5,000 UNIT/ML 1 ML VIAL SQ SCH ×2 (07:59→21:26)
[2016-05-15] MEDS: PIPERACILLIN-TAZOBACTAM 3.375 GM in DEXTROSE/WATER 1 50ML.BAG IVPB SCH ×2 (08:33→15:22)
--- NOTE | 2016-05-15 09:12 | P.PN ---
Subjective Principal diagnosis: Obstructive jaundice 75-year-old male admitted with acute abdominal pain and obstructive jaundice secondary to choledocholithiasis status post ERCP with sphincterotomy yesterday. Feels well. Denies abdominal pain. Repeat chemistries are pending. Afebrile. Tolerating clear liquids this morning. Objective - Vital Signs Vital signs: Vital Signs Temp 96.8 F L 05/15/16 07:00 Pulse 62 05/15/16 07:00 Resp 20 05/15/16 07:00 BP 127/67 05/15/16 07:00 Pulse Ox 95 05/15/16 07:00 Intake & Output 05/14/16 05/15/16 05/15/16 18:59 06:59 18:59 Intake Total 400 480 Balance 400 480 Intake: IV 400 Oral 480 Other: Voiding Method Toilet Toilet # Voids 1 1 - Exam General appearance: The patient is alert, oriented, in no acute distress. Jaundice. HET: Head is normocephalic and atraumatic. Pupils are equal and reactive. Sclerae icterus. Oropharynx is clear without lesions. Neck: Supple without lymphadenopathy. Trachea midline. Heart: S1 S2. Regular rate and rhythm. Lungs: No crackles or wheezes are heard. Abdomen: Soft, nontender, nondistended with bowel sounds. No peritoneal signs. No palpable organomegaly or masses. Extremities: Normal skin color and turgor. No cyanosis, rash, ulceration, clubbing, or edema. Radial and pedal pulses are 2/4 bilaterally. Neurological: No focal deficits. Strength and sensation are grossly intact. - Labs CBC & Chem 7: 05/14/16 09:30 05/14/16 09:30 Labs: Abnormal Lab Results - Last 24 Hours (Table) 05/14/16 05/14/16 05/14/16 Range/Units 09:30 09:30 11:55 RBC 3.60 L (4.30-5.90) m/uL Hgb 11.8 L (13.0-17.5) gm/dL Hct 37.3 L (39.0-53.0) % MCV 103.6 H (80.0-100.0) fL Lymphocytes # 0.6 L (1.0-4.8) k/uL BUN 27 H (9-20) mg/dL Glucose 111 H (74-99) mg/dL POC Glucose (mg/dL) 119 H (75-99) mg/dL Calcium 8.3 L (8.4-10.2) mg/dL Total Bilirubin 9.3 H (0.2-1.3) mg/dL AST 360 H (17-59) U/L ALT 357 H (21-72) U/L Alkaline Phosphatase 577 H (38-126) U/L Total Protein 6.1 L (6.3-8.2) g/dL Albumin 3.2 L (3.5-5.0) g/dL 05/14/16 05/14/16 Range/Units 17:03 21:00 RBC (4.30-5.90) m/uL Hgb (13.0-17.5) gm/dL Hct (39.0-53.0) % MCV (80.0-100.0) fL Lymphocytes # (1.0-4.8) k/uL BUN (9-20) mg/dL Glucose (74-99) mg/dL POC Glucose (mg/dL) 200 H 197 H (75-99) mg/dL Calcium (8.4-10.2) mg/dL Total Bilirubin (0.2-1.3) mg/dL AST (17-59) U/L ALT (21-72) U/L Alkaline Phosphatase (38-126) U/L Total Protein (6.3-8.2) g/dL Albumin (3.5-5.0) g/dL Microbiology - Last 24 Hours (Table) 05/12/16 21:46 Blood Culture Gram Stain - Final Blood Blood Culture - Final Escherichia coli 05/13/16 07:18 Blood Culture - Preliminary Blood No Growth after 24 hours Assessment and Plan (1) Obstructive jaundice Narrative/Plan: Secondary to choledocholithiasis status post ERCP with sphincterotomy Status: Acute (2) Choledocholithiasis Status: Acute Plan: 1. Continue supportive measures. Repeat chemistries. We'll defer to general surgery for further recommendations. Discharge per medicine. Assessment and plan a care discussed with Dr. Madden.
[2016-05-15 10:12] LABS: Basophils % (A) 0 %; CH 32.6; CHCM 31.5; Eosinophils # (A) 0.1 k/uL (0-0.7); Eosinophils % (A) 2 %; HDW 2.15; HGB 12.4 gm/dL (13.0-17.5); Luc % (Auto) 4; Lymphocytes # (A) 0.7 k/uL (1.0-4.8); Lymphocytes % (A) 14 %; MCH 32.4 pg (25.0-35.0); MCHC 31.1 g/dL (31.0-37.0); MCV 104.2 fL (80.0-100.0); Macrocytosis Slight; Mean Platelet Volume 7.5; Monocytes # (A) 0.4 k/uL (0-1.0); Monocytes % (A) 9 %; Neutrophils # (A) 3.3 k/uL (1.3-7.7); Neutrophils % (A) 71 %; RBC 3.84 m/uL (4.30-5.90); RDW 13.4 % (11.5-15.5); WBC 4.6 k/uL (3.8-10.6); WBC (Perox) 4.02
[2016-05-15 10:28] LABS: ALT 280 U/L (21-72); AST 182 U/L (17-59); Alkaline Phosphatase 616 U/L (38-126); Anion Gap 13 mmol/L; Blood Urea Nitrogen 23 mg/dL (9-20); Calcium 8.4 mg/dL (8.4-10.2); Carbon Dioxide 24 mmol/L (22-30); Chloride 101 mmol/L (98-107); Glucose 239 mg/dL (74-99); Non-African American GFR(MDRD) >60 (>60 ml/min/1.73 sqM); Potassium 4.3 mmol/L (3.5-5.1); Sodium 138 mmol/L (137-145); Total Protein 6.3 g/dL (6.3-8.2)
[2016-05-15] MEDS: VIT A,C & E-LUTEIN-MINERALS 1 EACH TAB PO SCH (11:26)
[2016-05-15 11:51] LABS: Glucose,Whole Blood 222 mg/dL (75-99)
--- NOTE | 2016-05-15 12:35 | P.PN ---
Subjective Principal diagnosis: Ascending cholangitis Patient feels well today. Bilirubin is down to 7.0. He is hungry for more food. He is hoping to go home today. Objective - Vital Signs Vital signs: Vital Signs Temp 96.8 F L 05/15/16 07:00 Pulse 62 05/15/16 07:00 Resp 20 05/15/16 07:00 BP 127/67 05/15/16 07:00 Pulse Ox 95 05/15/16 07:00 Intake & Output 05/14/16 05/15/16 05/15/16 18:59 06:59 18:59 Intake Total 400 480 Balance 400 480 Intake: IV 400 Oral 480 Other: Voiding Method Toilet Toilet # Voids 1 1 - Exam Abdomen: Soft, nontender, nondistended - Labs CBC & Chem 7: 05/15/16 09:47 05/15/16 09:47 Labs: Abnormal Lab Results - Last 24 Hours (Table) 05/14/16 05/14/16 05/15/16 Range/Units 17:03 21:00 09:47 RBC 3.84 L (4.30-5.90) m/uL Hgb 12.4 L (13.0-17.5) gm/dL MCV 104.2 H (80.0-100.0) fL Lymphocytes # 0.7 L (1.0-4.8) k/uL BUN (9-20) mg/dL Glucose (74-99) mg/dL POC Glucose (mg/dL) 200 H 197 H (75-99) mg/dL Total Bilirubin (0.2-1.3) mg/dL AST (17-59) U/L ALT (21-72) U/L Alkaline Phosphatase (38-126) U/L Albumin (3.5-5.0) g/dL 05/15/16 05/15/16 Range/Units 09:47 11:39 RBC (4.30-5.90) m/uL Hgb (13.0-17.5) gm/dL MCV (80.0-100.0) fL Lymphocytes # (1.0-4.8) k/uL BUN 23 H (9-20) mg/dL Glucose 239 H (74-99) mg/dL POC Glucose (mg/dL) 222 H (75-99) mg/dL Total Bilirubin 7.0 H (0.2-1.3) mg/dL AST 182 H (17-59) U/L ALT 280 H (21-72) U/L Alkaline Phosphatase 616 H (38-126) U/L Albumin 3.4 L (3.5-5.0) g/dL Microbiology - Last 24 Hours (Table) 05/13/16 07:18 Blood Culture - Preliminary Blood No Growth after 48 hours 05/12/16 21:46 Blood Culture Gram Stain - Final Blood Blood Culture - Final Escherichia coli Assessment and Plan (1) Choledocholithiasis Narrative/Plan: Repeat lab work in a.m. Follow-up in the office in one week. I will be leaving town this afternoon. Patient was informed of this. Patient will have a follow-up office visit next week to schedule elective cholecystectomy. I will sign off at this point. Please contact Dr. Leyva if any issues arise. Status: Acute
[2016-05-15 13:19] VITALS: BMI 26.9
--- NOTE | 2016-05-15 13:22 | P.PN ---
Subjective Patient is doing fairly well today. He is still jaundiced with icteric sclerae. He is having good appetite. Normal bowel movement. Objective - Vital Signs Vital signs: Vital Signs Temp 96.8 F L 05/15/16 07:00 Pulse 62 05/15/16 07:00 Resp 20 05/15/16 07:00 BP 127/67 05/15/16 07:00 Pulse Ox 95 05/15/16 07:00 Intake & Output 05/14/16 05/15/16 05/15/16 18:59 06:59 18:59 Intake Total 400 480 Balance 400 480 Weight 90 kg Intake: IV 400 Oral 480 Other: Voiding Method Toilet Toilet # Voids 1 1 - Exam General: The patient is awake and alert, in no distress Eye: there is normal conjunctiva bilaterally. Neck: The neck is supple, there is no JVD. Cardiovascular: Normal S1-S2, no S3-S4, no murmurs. Respiratory: Lungs clear to auscultation bilaterally Gastrointestinal: Abdomen is soft, nontender Musculoskeletal: There is no pedal edema. Neurological:. Speech is normal. Skin: Skin is warm and dry - Labs CBC & Chem 7: 05/15/16 09:47 05/15/16 09:47 Labs: Abnormal Lab Results - Last 24 Hours (Table) 05/14/16 05/14/16 05/15/16 Range/Units 17:03 21:00 09:47 RBC 3.84 L (4.30-5.90) m/uL Hgb 12.4 L (13.0-17.5) gm/dL MCV 104.2 H (80.0-100.0) fL Lymphocytes # 0.7 L (1.0-4.8) k/uL BUN (9-20) mg/dL Glucose (74-99) mg/dL POC Glucose (mg/dL) 200 H 197 H (75-99) mg/dL Total Bilirubin (0.2-1.3) mg/dL AST (17-59) U/L ALT (21-72) U/L Alkaline Phosphatase (38-126) U/L Albumin (3.5-5.0) g/dL 05/15/16 05/15/16 Range/Units 09:47 11:39 RBC (4.30-5.90) m/uL Hgb (13.0-17.5) gm/dL MCV (80.0-100.0) fL Lymphocytes # (1.0-4.8) k/uL BUN 23 H (9-20) mg/dL Glucose 239 H (74-99) mg/dL POC Glucose (mg/dL) 222 H (75-99) mg/dL Total Bilirubin 7.0 H (0.2-1.3) mg/dL AST 182 H (17-59) U/L ALT 280 H (21-72) U/L Alkaline Phosphatase 616 H (38-126) U/L Albumin 3.4 L (3.5-5.0) g/dL Microbiology - Last 24 Hours (Table) 05/13/16 07:18 Blood Culture - Preliminary Blood No Growth after 48 hours 05/12/16 21:46 Blood Culture Gram Stain - Final Blood Blood Culture - Final Escherichia coli Assessment and Plan Plan: 1. Obstructive jaundice status post ERCP with sphincterectomy and common bile duct stone extraction. Patient was also seen and evaluated by general surgery. Plan for cholecystectomy next week possibly. 2. Ascending cholangitis: On broad-spectrum antibiotic followed by infectious disease 3. Transaminitis: Related to #1 and 2. Continue to hold statin for now. 4. Insulin-dependent diabetes mellitus, type II: Continue the Levemir and sliding scale coverage. Hold metformin. Hemoglobin A1c of 7.2 5. Essential hypertension continue the lisinopril and Norvasc 6. Right basilar atelectasis noted on chest x-ray: Order incentive spirometer. Continue to monitor clinical condition. Repeat lab work in the morning. Bilirubin trending down. Anticipate discharge home tomorrow.
[2016-05-15 17:33] LABS: Glucose,Whole Blood 129 mg/dL (75-99)
[2016-05-15 21:08] LABS: Glucose,Whole Blood 158 mg/dL (75-99)
[2016-05-16] MEDS: SODIUM CHLORIDE 0.9% 1,000 ML IV SCH (05:23)
--- NOTE | 2016-05-16 05:39 | PN ---
DATE OF SERVICE: 05/15/2016 Reason for followup is bacteremia and cholangitis. INTERVAL HISTORY: The patient is afebrile. The patient is status post ERCP and sphincterotomy yesterday with extraction of stone. The patient tolerated the procedure. Overall pain to the right upper quadrant area is currently controlled. No nausea or vomiting. Denies having any chest pain or shortness of breath or cough. On examination, blood pressure is 136/67 with a pulse of 68, temperature 96.3. He is 96% on room air. General description is an elderly male lying in bed in no distress. RESPIRATORY SYSTEM: Unlabored breathing. Clear to auscultation anteriorly. HEART: S1, S2. Regular rate and rhythm. ABDOMEN: Soft, no distention. EXTREMITIES: No edema of feet. LABS: BUN of 23, creatinine 1.04. is slightly improved. Hemoglobin is 12.4, white count is 4.6. Blood cultures with an E. coli, this is a sensitive pathogen. DIAGNOSTIC IMPRESSION AND PLAN: Patient with Escherichia coli bacteremia secondary to ascending cholangitis for which the patient is currently piperacillin tazobactam. Antibiotic to be adjusted to Rocephin 2 grams daily; however, will be able to finish therapy with oral antibiotics as it is a sensitive pathogen. Continue supportive care. MTDD
[2016-05-16] MEDS: LEVOTHYROXINE 50 MCG TAB PO SCH (06:39)
[2016-05-16 07:20] LABS: Glucose,Whole Blood 129 mg/dL (75-99)
[2016-05-16 07:44] VITALS: BP 139/71; PULSE 63; RESP 18; TEMP 96.9
[2016-05-16] MEDS: INSULIN DETEMIR 100 UNIT/ML 10 ML VIAL SQ SCH (08:34)
[2016-05-16] MEDS: LISINOPRIL 20 MG TAB PO SCH (08:34)
[2016-05-16] MEDS: amLODIPine 10 MG TAB PO SCH (08:34)
[2016-05-16] MEDS: PANTOPRAZOLE 40 MG TABLET PO SCH (08:35)
[2016-05-16] MEDS: INSULIN LISPRO (humaLOG) 300 UNIT/3 ML VIAL SQ SCH ×2 (08:35→13:44)
[2016-05-16] MEDS: ASPIRIN 81 MG CHEW PO SCH (08:35)
[2016-05-16] MEDS ORDERED: cefTRIAXone 2,000 MG in SODIUM CHLORIDE 0.9% 100 ML IVPB SCH (09:00)
[2016-05-16 10:00] LABS: Basophils % (A) 1 %; CH 32.8; CHCM 31.6; Eosinophils # (A) 0.1 k/uL (0-0.7); Eosinophils % (A) 2 %; HCT 37.1 % (39.0-53.0); HDW 2.13; HGB 11.6 gm/dL (13.0-17.5); Luc # (Auto) 0.18; Luc % (Auto) 4; Lymphocytes % (A) 20 %; MCH 32.6 pg (25.0-35.0); MCHC 31.2 g/dL (31.0-37.0); MCV 104.5 fL (80.0-100.0); Macrocytosis Slight; Mean Platelet Volume 8.1; Monocytes # (A) 0.3 k/uL (0-1.0); Monocytes % (A) 7 %; Neutrophils # (A) 3.2 k/uL (1.3-7.7); Neutrophils % (A) 67 %; RBC 3.55 m/uL (4.30-5.90); RDW 13.5 % (11.5-15.5); WBC 4.8 k/uL (3.8-10.6); WBC (Perox) 4.97
[2016-05-16 10:18] LABS: ALT 211 U/L (21-72); AST 116 U/L (17-59); Alkaline Phosphatase 600 U/L (38-126); Anion Gap 10 mmol/L; Blood Urea Nitrogen 15 mg/dL (9-20); Calcium 8.2 mg/dL (8.4-10.2); Carbon Dioxide 24 mmol/L (22-30); Chloride 104 mmol/L (98-107); Glucose 152 mg/dL (74-99); Non-African American GFR(MDRD) >60 (>60 ml/min/1.73 sqM); Potassium 4.3 mmol/L (3.5-5.1); Sodium 138 mmol/L (137-145); Total Bilirubin 4.5 mg/dL (0.2-1.3)
[2016-05-16] MEDS: HEPARIN SODIUM,PORCINE 5,000 UNIT/ML 1 ML VIAL SQ SCH (10:22)
--- NOTE | 2016-05-16 11:56 | PN ---
DATE OF SERVICE: 05/16/2016 Reason for followup is E. coli bacteremia secondary to ascending cholangitis. INTERVAL HISTORY: The patient is afebrile. Has been breathing comfortably. Denies having any chest pain or shortness of breath or cough. No nausea, vomiting or any diarrhea. On examination, blood pressure is 139/71 with a pulse of 63, temperature 96.9, he is 96% on room air. General description is an elderly male, up in the bed in no distress. RESPIRATORY SYSTEM: Unlabored breathing. Clear to auscultation anteriorly. HEART: S1, S2 with regular rate and rhythm. ABDOMEN: Soft. No tenderness. LABS: Hemoglobin is 12.4, white count of 4.6 with a BUN of 23, creatinine 1.94. Follow up blood culture has been negative. DIAGNOSTIC IMPRESSION AND PLAN: Patient with an Escherichia coli bacteremia secondary to ascending cholangitis and being a sensitive pathogen. Patient is currently on Rocephin 2 gm daily, plan to finish up with p.o. Cipro 500 mg twice a day for another 12 days with outpatient followup. Continue supportive care.
[2016-05-16 12:07] LABS: Glucose,Whole Blood 338 mg/dL (75-99)
--- NOTE | 2016-05-16 12:30 | P.DS ---
Providers Date of admission: 05/12/16 17:52 Expected date of discharge: 05/16/16 Attending physician: Angela Mackenzie Consults: 05/13/16 16:09 Consult Physician Routine Consulting Provider: Isaiah Perales Consult Reason/Comments: positive blood culture Do you want consulting provider notified?: Yes 05/14/16 15:29 Consult Physician Routine Consulting Provider: Esteban Jones Consult Reason/Comments: gallbladder Do you want consulting provider notified?: Yes Dr. Madden Primary care physician: Citlalli Barr Hospital Course: Discharge diagnosis 1. Obstructive jaundice status post ERCP with sphincterectomy and common bile duct stone extraction. Patient was also seen and evaluated by general surgery. Plan for cholecystectomy next week possibly. 2. Ascending cholangitis: On broad-spectrum antibiotic followed by infectious disease 3. Transaminitis: Related to #1 and 2. Continue to hold statin for now. 4. Insulin-dependent diabetes mellitus, type II: Continue the Levemir and sliding scale coverage. Hemoglobin A1c of 7.2 5. Essential hypertension continue the lisinopril and Norvasc 6. Right basilar atelectasis noted on chest x-ray: Order incentive spirometer. 7. Choledocholithiasis 8. Bacteremia with one blood culture positive for E. coli secondary to the ascending cholangitis Hospital course This is a 75-year-old male who presented with right upper quadrant and epigastric abdominal pain for 1 week. Also was found to be jaundice. He noted that his skin was yellow for about 3 days. Presented to the emergency room abdominal ultrasound showed echogenic and heterogenesis liver she has fatty infiltration or other nonspecific hepatocellular disease. Sludge collected in the gallbladder neck now with mild gallbladder wall thickening. No evidence of for a positive James sign. Gallbladder wall thickening is nonspecific and may be reactive to the underlying hepatocellular disease. Interval increase in caliber of the bile duct now 5.7 mm versus 3.8 mm. Patient had a total bilirubin 8.3, AST 241, ALT 243 and Alk phos 543. He is jaundiced on exam. He was started on IV Levaquin and Flagyl in the emergency room. He was seen by GI service and surgical service. Patient did undergo ERCP. He was status post sphincterotomy with extraction of common bile duct stone. Patient's symptoms did improve. He did tolerate advancement of diet. Liver enzymes are trending down as well as the total bilirubin. Surgery evaluated patient is recommending a cholecystectomy in 1 week. Patient also had 1 positive blood culture with E. coli and was seen evaluated by infectious disease. Infectious disease adjust antibiotics to IV Rocephin and discontinue the Levaquin and Flagyl. The recommending that patient continue Cipro for 12 more days to complete treatment for the bacteremia. Patient had ascending cholangitis and choledocholithiasis. Patient's symptoms did improve with the ERCP and extraction of common bile duct stone. He'll proceed with cholecystectomy as outpatient. Continue with antibiotic treatment. He is medically stable for discharge. Please refer to chart for any further details. Labs at discharge: Total bilirubin 4.5, AST 116 , ALT 211, alk phos 600 Patient Condition at Discharge: Stable Plan - Discharge Summary New Discharge Prescriptions: Ciprofloxacin HCl [Cipro] 500 mg PO Q12HR #24 tablet Discharge Medication List Levothyroxine Sodium [Synthroid] 50 mcg PO DAILY 03/29/14 [History] metFORMIN HCL 1,000 mg PO BID 03/29/14 [History] Aspirin EC [Ecotrin Low Dose] 81 mg PO DAILY 05/12/16 [History] Insulin Detemir [Levemir] 20 unit SQ QAM 05/12/16 [History] Insulin Detemir [Levemir] 30 unit SQ W/SUPPER 05/12/16 [History] Lisinopril 40 mg PO DAILY 05/12/16 [History] Vit A/Vit C/Vit E/Zinc/Copper [ICAPS SOFTGEL] 1 cap PO DAILY 05/12/16 [History] amLODIPine [Norvasc] 10 mg PO DAILY 05/12/16 [History] Ciprofloxacin HCl [Cipro] 500 mg PO Q12HR #24 tablet 05/16/16 [Rx] Follow up Appointment(s)/Referral(s): Esteban Jones MD [Medical Doctor] - 1 Week Isaiah Perales MD [STAFF PHYSICIAN] - 1 Week Citlalli Barr MD [Primary Care Provider] - 1 Week Patient Instructions/Handouts: Type 2 Diabetes in Adults (DC) Activity/Diet/Wound Care/Special Instructions: Diet: diabetic, cardiac Activity: as tolerated Discharge Disposition: HOME SELF-CARE
[2016-05-16] MEDS: VIT A,C & E-LUTEIN-MINERALS 1 EACH TAB PO SCH (13:45)
[2016-05-16 14:00] LABS: Glucose,Whole Blood 241 mg/dL (75-99)
== END 2016-05-16 14:20 | disposition home or self-care (01) | DRG 445 ==
LOC: EC 13:31 → 4MS4W 17:52
PROVIDERS: ADMIT Internal Medicine; ATTEND Internal Medicine
PROC: 3E0234Z Introduction of Serum, Toxoid and Vaccine into Muscle, Percutaneous Approach (ICD-10-PCS; 2016-05-14)
PROC: 0FC98ZZ Extirpation of Matter from Common Bile Duct, Via Natural or Artificial Opening Endoscopic (ICD-10-PCS; principal; 2016-05-14 08:15)
PROC: BF111ZZ Fluoroscopy of Biliary and Pancreatic Ducts using Low Osmolar Contrast (ICD-10-PCS; 2016-05-14 08:15)
PROC: 0F798ZZ Dilation of Common Bile Duct, Via Natural or Artificial Opening Endoscopic (ICD-10-PCS; 2016-05-14 08:15)
DX: K80.33 Calculus of bile duct with acute cholangitis with obstruction (principal); J98.11 Atelectasis; R78.81 Bacteremia; E11.9 Type 2 diabetes mellitus without complications; K76.0 Fatty (change of) liver, not elsewhere classified; I10 Essential (primary) hypertension; B96.20 Unspecified Escherichia coli [E. coli] as the cause of diseases classified elsewhere; Z23 Encounter for immunization; E78.5 Hyperlipidemia, unspecified; E03.9 Hypothyroidism, unspecified; K21.9 Gastro-esophageal reflux disease without esophagitis; K57.10 Diverticulosis of small intestine without perforation or abscess without bleeding; Z79.84 Long term (current) use of oral hypoglycemic drugs; Z79.82 Long term (current) use of aspirin; Z79.4 Long term (current) use of insulin; Z79.899 Other long term (current) drug therapy
CPT/HCPCS: 36415; 43260; 43262; 43264; 71010; 74330; 76700; 76705; 80053; 81001; 83036; 83690; 83735; 84484; 85025; 85610; 85730; 87040; 87077; 87186; 93005; 99153

== ENCOUNTER → 2016-05-23 | Outpatient (CLI) | payer MEDICARE, BC ==
[2016-05-23 12:42] LABS: Basophils % (A) 0 %; CH 32.9; CHCM 31.6; Eosinophils % (A) 0 %; HDW 2.05; HGB 12.5 gm/dL (13.0-17.5); Luc # (Auto) 0.17; Luc % (Auto) 3; Lymphocytes # (A) 1.3 k/uL (1.0-4.8); Lymphocytes % (A) 21 %; MCH 32.6 pg (25.0-35.0); MCHC 31.2 g/dL (31.0-37.0); MCV 104.5 fL (80.0-100.0); Macrocytosis Slight; Monocytes # (A) 0.3 k/uL (0-1.0); Monocytes % (A) 5 %; Neutrophils # (A) 4.5 k/uL (1.3-7.7); Neutrophils % (A) 71 %; RBC 3.83 m/uL (4.30-5.90); RDW 13.9 % (11.5-15.5); WBC 6.4 k/uL (3.8-10.6); WBC (Perox) 6.36
[2016-05-23 13:02] LABS: ALT 101 U/L (21-72); AST 61 U/L (17-59); Alkaline Phosphatase 495 U/L (38-126); Anion Gap 14 mmol/L; Blood Urea Nitrogen 16 mg/dL (9-20); Calcium 9.3 mg/dL (8.4-10.2); Carbon Dioxide 23 mmol/L (22-30); Chloride 102 mmol/L (98-107); Glucose 151 mg/dL (74-99); Non-African American GFR(MDRD) >60 (>60 ml/min/1.73 sqM); Potassium 4.8 mmol/L (3.5-5.1); Sodium 139 mmol/L (137-145); Total Bilirubin 2.1 mg/dL (0.2-1.3); Total Protein 7.4 g/dL (6.3-8.2)
== END | disposition home or self-care (01) ==
LOC: LABWHC1 12:17
PROVIDERS: ATTEND Surgery
DX: K83.0 Cholangitis (principal)
CPT/HCPCS: 36415; 80053; 85025

== ENCOUNTER 2016-06-05 09:18 | Day surgery (SDC) | payer MEDICARE, BC ==
--- NOTE | 2016-05-31 21:02 | HP ---
DATE OF ADMISSION: 06/05/2016 CHIEF COMPLAINT: Choledocholithiasis. HISTORY OF PRESENT ILLNESS: Patient is a 75-year-old male who was recently hospitalized for choledocholithiasis. The patient had sludge on recent abdominal ultrasound with gallbladder wall thickening as well. His bilirubin had reached almost 10. He did undergo ERCP with stone extraction. He is doing well at this time with no complaints. No recent lab work, however. Those are being scheduled at this time. Past medical history: Diabetes, GERD, hyperlipidemia, hypertension, hypothyroid. Past surgical history is shoulder and ERCP. ALLERGIES: NEOSPORIN. MEDICATIONS: 1. Levemir. 2. Lisinopril. 3. Levothyroxine. 4. Metformin. PHYSICAL EXAMINATION: GENERAL: Well-developed, well-nourished male in no distress. HEENT: Normocephalic. Sclerae anicteric. CHEST: No deformities. ABDOMEN: Soft, nontender, nondistended. IMPRESSION: A 75-year-old male with recent choledocholithiasis. PLAN: Will proceed with laparoscopic cholecystectomy, possible open cholecystectomy on 06/05. The risks of bleeding, infection, biloma formation, common bile duct injury, retained CBD stone, and trocar-related injury were discussed. The patient understands and wishes to proceed.
[2016-06-03 16:19] VITALS: BMI 27.1
[~2016-06-05 09:18] MED LIST: DEXAMETHASONE SOD PHOSPHATE 10 MG/ML 1 ML VIAL IV ONE; HEPARIN SODIUM,PORCINE 5,000 UNIT/ML 1 ML VIAL SQ ONE; HYDROmorphone 1 MG/ML 1 ML SYRINGE IVP PRN; LACTATED RINGERS 1,000 ML IV SCH; ONDANSETRON 4 MG/2 ML VIAL IVP ONE; ceFAZolin 2 GM in SODIUM CHLORIDE 0.9% 100 ML IVPB ONE
[2016-06-05] MEDS ORDERED: LIDOCAINE 1% 20 ML VIAL (10MG/ML) FOR IV START INTRADERMA ONE (10:18)
[2016-06-05 10:39] LABS: Basophils % (A) 1 %; CH 33.3; CHCM 33.5; Eosinophils % (A) 1 %; HCT 39.4 % (39.0-53.0); HDW 2.41; HGB 13.2 gm/dL (13.0-17.5); Luc # (Auto) 0.15; Luc % (Auto) 3; Lymphocytes # (A) 1.3 k/uL (1.0-4.8); Lymphocytes % (A) 30 %; MCH 33.4 pg (25.0-35.0); MCHC 33.5 g/dL (31.0-37.0); MCV 99.7 fL (80.0-100.0); Monocytes # (A) 0.3 k/uL (0-1.0); Monocytes % (A) 7 %; Neutrophils # (A) 2.5 k/uL (1.3-7.7); Neutrophils % (A) 58 %; RBC 3.95 m/uL (4.30-5.90); RDW 13.5 % (11.5-15.5); WBC 4.4 k/uL (3.8-10.6); WBC (Perox) 4.51
[2016-06-05] MEDS ORDERED: ROCURONIUM BROMIDE 10 MG/ML 10 ML VIAL IV ONE (10:42)
[2016-06-05] MEDS ORDERED: ePHEDrine 50 MG/ML 1 ML AMP ONE (10:42)
[2016-06-05] MEDS ORDERED: MIDAZOLAM 2 MG/2 ML VIAL ONE (10:42)
[2016-06-05] MEDS ORDERED: PROPOFOL 10 MG/ML 20 ML VIAL IV ONE (10:42)
[2016-06-05] MEDS ORDERED: KETOROLAC 30 MG/ML 1 ML VIAL ONE (10:42)
[2016-06-05] MEDS ORDERED: SUCCINYLCHOLINE CHLORIDE 100 MG/5 ML SYR IV ONE (10:42)
[2016-06-05] MEDS ORDERED: fentaNYL (PF) 50 MCG/ML 2 ML AMP ONE (10:42)
[2016-06-05] MEDS ORDERED: NEOSTIGMINE 1 MG/ML 10 ML VIAL ONE (10:42)
[2016-06-05] MEDS ORDERED: LIDOCAINE 1% INJ 10MG/ML (20 ML MDV) ONE (10:42)
[2016-06-05] MEDS ORDERED: GLYCOPYRROLATE 0.2 MG/ML 2 ML VIAL ONE (10:42)
[2016-06-05 10:43] LABS: Anion Gap 11 mmol/L; Blood Urea Nitrogen 16 mg/dL (9-20); Calcium 9.1 mg/dL (8.4-10.2); Carbon Dioxide 22 mmol/L (22-30); Chloride 105 mmol/L (98-107); Glucose 161 mg/dL (74-99); Non-African American GFR(MDRD) >60 (>60 ml/min/1.73 sqM); Potassium 4.7 mmol/L (3.5-5.1); Sodium 138 mmol/L (137-145)
[2016-06-05 10:47] LABS: Glucose,Whole Blood 169 mg/dL (75-99)
[2016-06-05] MEDS ORDERED: BUPIVACAIN-EPI 0.25%-1:200,000 30 ML VIAL IJ ONE ×2 (11:03)
[2016-06-05 11:23] LABS: ALT 49 U/L (21-72); AST 45 U/L (17-59); Alkaline Phosphatase 209 U/L (38-126); Total Bilirubin 1.3 mg/dL (0.2-1.3)
[2016-06-05 12:00] VITALS: TEMP 97
[2016-06-05 12:17] LABS: Glucose,Whole Blood 211 mg/dL (75-99)
[2016-06-05] MEDS ORDERED: INSULIN LISPRO (humaLOG) 300 UNIT/3 ML VIAL SQ ONE (12:19)
[2016-06-05] MEDS ORDERED: NALOXONE 0.4 MG/ML 1 ML VIAL IV PRN (12:26)
[2016-06-05] MEDS ORDERED: HYDROcodone/APAP 5-325MG 1 EACH TAB PO PRN (12:26)
--- NOTE | 2016-06-05 12:30 | P.PCN ---
Date of Procedure: 06/05/16 Procedure(s) Performed: PREOPERATIVE DIAGNOSIS: Chronic cholecystitis POSTOPERATIVE DIAGNOSIS: Same PROCEDURE: Laparoscopic cholecystectomy SURGEON: Robert EBL: Minimal see anesthesia record ANESTHESIA: Gen. COMPLICATIONS: None OPERATIVE PROCEDURE: The patient was brought and placed on the operating room table in the supine position. The patient was placed under general anesthesia at that time. The abdomen was prepped and draped in the usual sterile fashion. A small vertical infraumbilical incision was made. The fascia was grasped with the Jia forceps. The fascia was retracted anteriorly. The Veress needle was advanced into the peritoneal cavity. The saline drop test was normal. Insufflation took place up to 15 mmHg. A 5 mm optical trocar was advanced and the peritoneal cavity. 2 additional 5 mm trochars were placed in the right upper quadrant under direct visualization. A 12 mm trocar was advanced into the epigastric incision site. The patient's liver was somewhat nodular and fairly firm. Certainly some underlying disease was present. No ascites was seen. The gallbladder was retracted superiorly and laterally. The peritoneum overlying the infundibulum was bluntly dissected. The patient had a fairly large amount of fat adherent to the gallbladder. There were 2 areas where the fatty tissue was oozing slightly and I placed a 12 mm clip there. The patient's cystic duct tapered down very slowly from the gallbladder. It remained larger then average which was expected because of the patient's recent history of choledocholithiasis. As I approached what appeared to represent the junction with the bile duct I decided to ligate the cystic duct using a 2-0 Ethibond stitch and this was tied down and secured using a tie knot. An additional clip was also placed on the patient's side and one on the specimen side. The cystic artery was identified and clipped as well. A small vessel was seen along the gallbladder fossa and clipped as well. The gallbladder was then removed from the liver bed using electrocautery. The gallbladder was then removed from the epigastric trocar site with an Endo Catch bag. The gallbladder fossa was irrigated with saline. There was no evidence of any bleeding or biliary drainage seen. The trochars were then removed. The fascia at the 12 millimeter site was closed using a [id number] 0 Vicryl stitch. The skin at all 4 sites was closed using a 4-0 Monocryl stitch. At the end of this procedure the sponge and needle counts were correct. DISPOSITION: Stable to the recovery room
[2016-06-05 12:54] LABS: Glucose,Whole Blood 191 mg/dL (75-99)
[2016-06-05] MEDS ORDERED: HYDROcodone/APAP 5-325MG 1 EACH TAB PO ONE (13:04)
[2016-06-05 13:25] VITALS: RESP 18
[2016-06-05 13:42] VITALS: BP 136/61; PULSE 82
== END 2016-06-05 14:00 | disposition home or self-care (01) ==
LOC: OR 09:18
PROVIDERS: ATTEND Surgery
DX: K81.1 Chronic cholecystitis (principal); E11.9 Type 2 diabetes mellitus without complications; E78.5 Hyperlipidemia, unspecified; I10 Essential (primary) hypertension; E03.9 Hypothyroidism, unspecified; Z79.84 Long term (current) use of oral hypoglycemic drugs; Z79.4 Long term (current) use of insulin; Z79.899 Other long term (current) drug therapy; Z88.1 Allergy status to other antibiotic agents
CPT/HCPCS: 88304; 80053; 85025; 47562; J2250; J1644; J1100; J2710; J0690; J2405; J2001; J3010; J1885; J0330; J2704

== ENCOUNTER 2016-08-24 11:18 | Emergency (ER) | payer MEDICARE, BC ==
[2016-08-24 11:41] VITALS: PULSE 82; RESP 18
--- NOTE | 2016-08-24 12:22 | ED ---
Male Urogenital HPI - General Chief complaint: Urogenital Stated complaint: cant urinate Time Seen by Provider: 08/24/16 11:51 Source: patient Mode of arrival: ambulatory Limitations: no limitations - History of Present Illness Initial comments: Complaining about her trouble voiding since 4 5 PM yesterday this is the first time he had a trouble voiding denies any fever no chills About some pressure in suprapubic area and pressure over the kidney areas are no fever no chills no nausea no vomiting he denies any history of prostate cancer no prostate surgery or radiation. He is not aware of prostate cancer problems in the family. Has no history of firm nephrolithiasis past medical history significant for diabetes and hypertension he had the gallbladder surgery done recently and denies any tobacco use, review of system is negative otherwise - Related Data Home Medications Medication Instructions Recorded Confirmed Levothyroxine Sodium [Synthroid] 50 mcg PO QAM 03/29/14 08/24/16 metFORMIN HCL 1,000 mg PO BID 03/29/14 08/24/16 Aspirin EC [Ecotrin Low Dose] 81 mg PO HS 05/12/16 08/24/16 Insulin Detemir [Levemir] 20 unit SQ QAM 05/12/16 08/24/16 Insulin Detemir [Levemir] 30 unit SQ HS 05/12/16 08/24/16 Lisinopril 40 mg PO QAM 05/12/16 08/24/16 Vit A/Vit C/Vit E/Zinc/Copper 1 cap PO DAILY 05/12/16 08/24/16 [ICAPS SOFTGEL] amLODIPine [Norvasc] 10 mg PO DAILY 08/24/16 08/24/16 Allergies Allergy/AdvReac Type Severity Reaction Status Date / Time bacitracin Allergy Rash/Hives Verified 08/24/16 13:09 [From Neosporin ([id number])] bacitracin zinc Allergy Rash/Hives Verified 08/24/16 13:09 [From Neosporin ([id number])] neomycin sulfate Allergy Rash/Hives Verified 08/24/16 13:09 [From Neosporin ([id number])] polymyxin B Allergy Rash/Hives Verified 08/24/16 13:09 [From Neosporin ([id number])] Review of Systems ROS Statement: Those systems with pertinent positive or pertinent negative responses have been documented in the HPI. ROS Other: All systems not noted in ROS Statement are negative. Past Medical History Past Medical History: Diabetes Mellitus, GERD/Reflux, Hyperlipidemia, Hypertension, Thyroid Disorder Additional Past Medical History / Comment(s): gallstone, hx sepsis from liver infection r/t gallbladder problems History of Any Multi-Drug Resistant Organisms: None Reported Past Surgical History: Cholecystectomy, Orthopedic Surgery Additional Past Surgical History / Comment(s): ERCP w/ stone removal,tamiko shoulder Past Anesthesia/Blood Transfusion Reactions: No Reported Reaction Past Psychological History: No Psychological Hx Reported Smoking Status: Never smoker Past Alcohol Use History: None Reported Past Drug Use History: None Reported - Past Family History Father Family Medical History: Cancer, Respiratory Disorder General Exam Limitations: no limitations Course Vital Signs 08/24/16 11:36 Temperature 98.2 F Pulse Rate 82 Respiratory 18 Rate Blood Pressure 171/79 O2 Sat by Pulse 97 Oximetry - Reevaluation(s) Reevaluation #1: 08/24/16 13:46 Patient is reassessed at term 20 4T, discussed his CBC CMP and urinalysis and x- ray reports with him actually report Kristofer S awake findings of calcification on the right side of the abdomen, possibility of the some calcification in the urinary tract considering that I recommended that we do the CAT scan of the abdomen to confirm or rule out any nephrolithiasis patient agreed with that would proceed with CT of the abdomen with IV contrast CT review the urinary tract of the right side more detail Reevaluation #2: 08/24/16 14:51 Vision is reassessed at 1445, CT of the abdomen was reviewed noticed prostate enlargement also noticed some fat straining at the юлия caval region and her nephrolithiasis, nephrolithiasis about 3 mm each on each side, is nonobstructive also noticed some partially calcified nodule on the anterior pancreatic head. Considering these findings amylase and lipase ordered so the prostate gland enlargement explains for patient's inability to void easily for that particular reason he would do to follow-up with the urology and considering the fat straining and юлия caval region and partially calcified nodule in the anterior pancreatic head were advised patient to follow up with the family doctor for follow-up imaging in about 3 months according to the recommendations done by radiologist Medical Decision Making - Lab Data Result diagrams: 08/24/16 12:30 08/24/16 12:30 Lab Results 08/24/16 08/24/16 08/24/16 Range/Units 11:45 12:30 12:30 WBC 6.0 (3.8-10.6) k/uL RBC 3.86 L (4.30-5.90) m/uL Hgb 12.8 L (13.0-17.5) gm/dL Hct 38.4 L (39.0-53.0) % MCV 99.6 (80.0-100.0) fL MCH 33.2 (25.0-35.0) pg MCHC 33.3 (31.0-37.0) g/dL RDW 13.6 (11.5-15.5) % Plt Count 162 (150-450) k/uL Sodium 136 L (137-145) mmol/L Potassium 4.4 (3.5-5.1) mmol/L Chloride 105 (98-107) mmol/L Carbon Dioxide 22 (22-30) mmol/L Anion Gap 9 mmol/L BUN 20 (9-20) mg/dL Creatinine 0.84 (0.66-1.25) mg/dL Est GFR (MDRD) Af Amer >60 (>60 ml/min/1.73 sqM) Est GFR (MDRD) Non-Af >60 (>60 ml/min/1.73 sqM) Glucose 159 H (74-99) mg/dL Calcium 9.1 (8.4-10.2) mg/dL Amylase (30-110) U/L Lipase (23-300) U/L Urine Color Yellow Urine Appearance Clear (Clear) Urine pH 5.5 (5.0-8.0) Ur Specific Lester 1.020 (1.001-1.035) Urine Protein 1+ H (Negative) Urine Glucose (UA) Negative (Negative) Urine Ketones Trace H (Negative) Urine Blood Negative (Negative) Urine Nitrite Negative (Negative) Urine Bilirubin Negative (Negative) Urine Urobilinogen <2.0 (<2.0) mg/dL Ur Leukocyte Esterase Negative (Negative) Urine RBC 1 (0-5) /hpf Urine WBC 1 (0-5) /hpf Urine Mucus Rare H (None) /hpf 08/24/16 Range/Units 12:30 WBC (3.8-10.6) k/uL RBC (4.30-5.90) m/uL Hgb (13.0-17.5) gm/dL Hct (39.0-53.0) % MCV (80.0-100.0) fL MCH (25.0-35.0) pg MCHC (31.0-37.0) g/dL RDW (11.5-15.5) % Plt Count (150-450) k/uL Sodium (137-145) mmol/L Potassium (3.5-5.1) mmol/L Chloride (98-107) mmol/L Carbon Dioxide (22-30) mmol/L Anion Gap mmol/L BUN (9-20) mg/dL Creatinine (0.66-1.25) mg/dL Est GFR (MDRD) Af Amer (>60 ml/min/1.73 sqM) Est GFR (MDRD) Non-Af (>60 ml/min/1.73 sqM) Glucose (74-99) mg/dL Calcium (8.4-10.2) mg/dL Amylase 44 (30-110) U/L Lipase 215 (23-300) U/L Urine Color Urine Appearance (Clear) Urine pH (5.0-8.0) Ur Specific Lester (1.001-1.035) Urine Protein (Negative) Urine Glucose (UA) (Negative) Urine Ketones (Negative) Urine Blood (Negative) Urine Nitrite (Negative) Urine Bilirubin (Negative) Urine Urobilinogen (<2.0) mg/dL Ur Leukocyte Esterase (Negative) Urine RBC (0-5) /hpf Urine WBC (0-5) /hpf Urine Mucus (None) /hpf Disposition Clinical Impression: Urinary retention, Prostate hyperplasia with urinary obstruction, Kidney stone Disposition: HOME SELF-CARE Referrals: Citlalli Barr MD [Primary Care Provider] - 1-2 days Desean Krishnamurthy MD [STAFF PHYSICIAN] - 1-2 days
[2016-08-24 12:33] LABS: Appearance,Urine Clear (Clear); Bilirubin,Urine Negative (Negative); Glucose,Urine (UA) Negative (Negative); Ketones,Urine Trace (Negative); Leukocyte Esterase,Urine Negative (Negative); Mucus,Urine Rare /hpf; Nitrite,Urine Negative (Negative); PH, Urine 5.5 (5.0-8.0); Particle Count 2952; Protein,Urine 1+ (Negative); RBC,Urine 1 /hpf (0-5); UA Billing (MACRO vs. MICRO) MICRO; Urobilinogen,Urine <2.0 mg/dL (<2.0); WBC,Urine 1 /hpf (0-5)
--- NOTE | 2016-08-24 12:48 | XR ---
EXAMINATION TYPE: XR KUB portable DATE OF EXAM: 08/24/2016 12:42 PM COMPARISON: NONE HISTORY: 75-year-old male pain, difficulty urinating FINDINGS: Surgical clips in the right upper quadrant. Some vague calcifications in the right paramedian mid abd omen nonspecific could reflect renal calculi. No dilated small bowel or air-fluid levels. Some scatte red colonic gas is present. Bladder is nondistended. Supine imaging limited for assessment of free a ir. IMPRESSION: Some vague calcifications in the right mid abdomen are nonspecific and could reflect nephrolithiasis. Nonobstructive bowel gas pattern. Surgical clips in the right upper quadrant.
[2016-08-24 13:00] LABS: CH 33.3; CHCM 33.5; HCT 38.4 % (39.0-53.0); HDW 2.19; HGB 12.8 gm/dL (13.0-17.5); MCH 33.2 pg (25.0-35.0); MCHC 33.3 g/dL (31.0-37.0); MCV 99.6 fL (80.0-100.0); Mean Platelet Volume 6.9; RBC 3.86 m/uL (4.30-5.90); RDW 13.6 % (11.5-15.5)
[2016-08-24 13:11] LABS: Anion Gap 9 mmol/L; Blood Urea Nitrogen 20 mg/dL (9-20); Calcium 9.1 mg/dL (8.4-10.2); Carbon Dioxide 22 mmol/L (22-30); Chloride 105 mmol/L (98-107); Glucose 159 mg/dL (74-99); Non-African American GFR(MDRD) >60 (>60 ml/min/1.73 sqM); Potassium 4.4 mmol/L (3.5-5.1); Sodium 136 mmol/L (137-145)
[2016-08-24] MEDS ORDERED: RX INFO: IV CONTRAST WAS GIVEN 1 EACH MISC MISCELLANE PRN (13:44)
--- NOTE | 2016-08-24 14:33 | CT ---
EXAMINATION TYPE: CT abdomen pelvis w con DATE OF EXAM: 08/24/2016 2:17 PM COMPARISON: Radiograph same date HISTORY: 75-year-old male complains of inability to urinate. TECHNIQUE: Contiguous axial scanning of the abdomen and pelvis following administration of 100 ml Omn ipaque 300 IV contrast. Delayed images through the kidneys and coronal/sagittal reconstructions perf ormed. CT DLP: 961.4 mGycm Automated exposure control for dose reduction was used. FINDINGS: The heart is normal size without pericardial effusion. Mild dependent atelectasis in the jimmie ng bases without pleural effusion. There appears to be relatively decreased density of the liver suggesting underlying fatty infiltratio n. Mild pneumobilia is present centrally. Cholecystectomy clips are present. Portal venous system is patent. No biliary ductal dilatation. Adrenal glands, spleen, and pancreas appear within normal limits. There is a diverticulum of the second portion of the duodenum. There is a nodular area along the anterior margin of the pancreatic head is partially calcified measu ring 2.1 cm. Recommend follow-up to reassess this area. This may relate to a site of previous inflamm ation. There is some mild fat stranding projecting posterior to the pancreatic head region in the aortocaval space. However, there appears to be maintained fat plane with the adjacent pancreas. No abnormal wal l thickening of the duodenum as it courses along this region. Mild bilateral perinephric stranding likely chronic senescent change and/or chronic kidney disease. T here is a punctate 3 mm nonobstructive calculus kidney. Symmetric uptake and excretion of contrast by both kidneys. No dilated small bowel, free fluid, or free air. No significant stool burden. No pericolonic inflammatory change. Bladder is urine distended. Prostate gland enlargement measuring 5.2 cm wide. Small fat-containing le ft inguinal hernia. No abnormal fluid collection in the pelvis or pelvic lymphadenopathy seen. Bones: Mild degenerative changes of the hips. Degenerative bridging ankylosis anterior SI joints. Add itional degenerative changes lower lumbar spine. Tiny focus of air along the dorsal spinal canal oppo site L3-L4 probably related to facet arthropathy and joint vacuum. IMPRESSION: 1. SOME NONSPECIFIC FAT STRANDING IN THE PORTACAVAL REGION SEEMS TO BE DISTINCT FROM THE PANCREAS AND DUODENUM. THIS IS OF UNCERTAIN CLINICAL SIGNIFICANCE. CORRELATE WITH AMYLASE AND LIPASE A PRECAUT IONARY MEASURE 2. A 3 MM NONOBSTRUCTIVE CALCULUS IN EACH KIDNEY. THERE IS NORMAL SYMMETRIC UPTAKE AND EXCRETION OF C ONTRAST FROM BOTH SIDES. 3. A NODULAR PARTIALLY CALCIFIED AREA ALONG THE ANTERIOR PANCREATIC HEAD COULD REPRESENT SEQUELA OF P RIOR INFLAMMATION. RECOMMEND FOLLOW-UP IN 3 MONTHS TO ENSURE STABILITY. THE FAT STRANDING IN THE PORT ACAVAL REGION CAN ALSO BE REASSESSED AT THAT TIME. 4. HEPATIC STEATOSIS, PROSTATOMEGALY (5.2 CM WIDE), AND SMALL FAT-CONTAINING LEFT INGUINAL HERNIA.
[2016-08-24 14:59] LABS: Amylase 44 U/L (30-110)
[2016-08-24 15:25] VITALS: BP 162/71; TEMP 97.8
== END 2016-08-24 15:25 | disposition home or self-care (01) ==
LOC: EC 11:18
DX: N40.1 Benign prostatic hyperplasia with lower urinary tract symptoms (principal); R33.9 Retention of urine, unspecified; N20.0 Calculus of kidney; E07.9 Disorder of thyroid, unspecified; E11.9 Type 2 diabetes mellitus without complications; I10 Essential (primary) hypertension; Z90.49 Acquired absence of other specified parts of digestive tract; Z79.4 Long term (current) use of insulin; Z79.82 Long term (current) use of aspirin; Z88.2 Allergy status to sulfonamides; Z79.84 Long term (current) use of oral hypoglycemic drugs; Z79.899 Other long term (current) drug therapy
CPT/HCPCS: 99284; 51798; 36415; 80048; 82150; 83690; 85027; 81001; 74000; 74177; Q9967

== ENCOUNTER 2019-02-28 12:52 | Emergency (ER) | payer MEDICARE, BC ==
[2019-02-28 13:14] VITALS: RESP 18
--- NOTE | 2019-02-28 13:40 | ED ---
General Adult HPI - General Chief complaint: Extremity Problem,Nontraumatic Stated complaint: Poss DVT Time Seen by Provider: 02/28/19 13:15 Source: patient, RN notes reviewed Mode of arrival: wheelchair Limitations: physical limitation - History of Present Illness Initial comments: Patient is a pleasant 78-year-old male presenting to the emergency Department with complaints of left lower lateral thigh swelling. Patient states he did inject himself here with his insulin yesterday secondary to history of diabetes. Patient also had lumbar discectomy done 4 days ago. Patient states his back feels great, better than even expected. No rash noted in the back. No fevers. No weakness. No comments or retention of bowel or bladder. Area of concern is confined to the lower thigh. - Related Data Home Medications Medication Instructions Recorded Confirmed Levothyroxine Sodium [Synthroid] 50 mcg PO QAM 03/29/14 08/24/16 metFORMIN HCL 1,000 mg PO BID 03/29/14 08/24/16 Aspirin EC [Ecotrin Low Dose] 81 mg PO HS 05/12/16 08/24/16 Insulin Detemir (Levemir) [Levemir] 20 unit SQ QAM 05/12/16 08/24/16 Insulin Detemir (Levemir) [Levemir] 30 unit SQ HS 05/12/16 08/24/16 Lisinopril 40 mg PO QAM 05/12/16 08/24/16 Vit A/Vit C/Vit E/Zinc/Copper 1 cap PO DAILY 05/12/16 08/24/16 [ICAPS SOFTGEL] amLODIPine [Norvasc] 10 mg PO DAILY 08/24/16 08/24/16 Previous Rx's Medication Instructions Recorded Cephalexin [Keflex] 500 mg PO QID #40 cap 02/28/19 Allergies Allergy/AdvReac Type Severity Reaction Status Date / Time bacitracin Allergy Rash/Hives Verified 02/28/19 13:13 [From Neosporin ([id number])] bacitracin zinc Allergy Rash/Hives Verified 02/28/19 13:13 [From Neosporin ([id number])] neomycin sulfate Allergy Rash/Hives Verified 02/28/19 13:13 [From Neosporin ([id number])] polymyxin B Allergy Rash/Hives Verified 02/28/19 13:13 [From Neosporin ([id number])] Review of Systems ROS Statement: Those systems with pertinent positive or pertinent negative responses have been documented in the HPI. ROS Other: All systems not noted in ROS Statement are negative. Constitutional: Denies: fever Eyes: Denies: eye pain ENT: Denies: ear pain Respiratory: Denies: cough Cardiovascular: Denies: chest pain Endocrine: Denies: fatigue Gastrointestinal: Denies: abdominal pain Genitourinary: Denies: dysuria Musculoskeletal: Reports: as per HPI Skin: Reports: as per HPI Past Medical History Past Medical History: Diabetes Mellitus, GERD/Reflux, Hyperlipidemia, Hypertension, Thyroid Disorder Additional Past Medical History / Comment(s): gallstone, hx sepsis from liver infection r/t gallbladder problems History of Any Multi-Drug Resistant Organisms: None Reported Past Surgical History: Cholecystectomy, Orthopedic Surgery Additional Past Surgical History / Comment(s): ERCP w/ stone removal,tamiko shoulder, lumbar 4th and 5th and 6th back surgery Past Anesthesia/Blood Transfusion Reactions: No Reported Reaction Past Psychological History: No Psychological Hx Reported Smoking Status: Never smoker Past Alcohol Use History: None Reported Past Drug Use History: None Reported - Past Family History Father Family Medical History: Cancer, Respiratory Disorder General Exam Limitations: physical limitation General appearance: alert, in no apparent distress Head exam: Present: normocephalic Eye exam: Present: normal appearance Neck exam: Present: normal inspection Respiratory exam: Present: normal lung sounds bilaterally Cardiovascular Exam: Present: regular rate, normal rhythm Expanded Peripheral pulses: 2+: Dorsalis Pedis (R), Dorsalis Pedis (L) GI/Abdominal exam: Present: soft. Absent: tenderness Extremities exam: Present: other (Left lateral lower thigh with area of 3 x 3 cm swelling with mild tenderness and mild warmth and mild erythema. Distally the extremity is neurovascular intact.) Back exam: Present: other (Lower back with bandage. Area around bandage is clean and dry and intact.) Neurological exam: Present: alert. Absent: motor sensory deficit Psychiatric exam: Present: normal affect, normal mood Skin exam: Present: erythema (Left lateral lower thigh) Course Vital Signs 02/28/19 13:10 Temperature 98.5 F Pulse Rate 94 Respiratory 18 Rate Blood Pressure 124/63 O2 Sat by Pulse 99 Oximetry Medical Decision Making - Medical Decision Making Patient reevaluated. Patient and family updated. - Radiology Data Radiology results: report reviewed (Doppler left leg negative for DVT. Focused ultrasound shows mild subcutaneous edema and hyperemia.) Disposition Clinical Impression: Cellulitis of left leg Disposition: HOME SELF-CARE Condition: Stable Instructions (If sedation given, give patient instructions): Cellulitis (ED) Additional Instructions: Please follow-up with primary care physician in the next day or 2 for recheck. Please also follow-up with surgeon in the next couple days for recheck. Return for fevers, increased pain or swelling or redness, back problems, worsening symptoms or other concerns. Prescription sent to pharmacy in [place]. Prescriptions: Cephalexin [Keflex] 500 mg PO QID #40 cap Is patient prescribed a controlled substance at d/c from ED?: No Referrals: Maynor Prabhakar MD [Primary Care Provider] - 1-2 days Time of Disposition: 14:36
--- NOTE | 2019-02-28 14:16 | US ---
EXAMINATION TYPE: US venous doppler duplex LE LT DATE OF EXAM: 02/28/2019 2:05 PM COMPARISON: NONE CLINICAL HISTORY: 78-year-old male swelling. Edema left leg. Back surgery 02/24/19 SIDE PERFORMED: left TECHNIQUE: The lower extremity deep venous system is examined utilizing real time linear array sonog tinaa with graded compression, doppler sonography and color-flow sonography. FINDINGS: VESSELS IMAGED: External Iliac Vein (EIV) Common Femoral Vein Deep Femoral Vein Greater Saphenous Vein * Femoral Vein Popliteal Vein Small Saphenous Vein * Proximal Calf Veins (* superficial vessels) Left Leg: No evidence of DVT IMPRESSION: No evidence for DVT within the left lower extremity imaged from the groin to the upper calf.
--- NOTE | 2019-02-28 14:17 | US ---
EXAMINATION TYPE: US extremity nonvasc mass LT DATE OF EXAM: 02/28/2019 COMPARISON: NONE TECHNIQUE: Targeted ultrasound examination along the anterior left mid to lower thigh at the site of redness and swelling. CLINICAL HISTORY: 78-year-old male swelling. Edema and redness left anterior mid to lower thigh corre sponding to the site of insulin injection yesterday FINDINGS: Last Trimmer notes: Soft tissue edema noted along with vascularity IMPRESSION: Targeted scanning along the anterior left mid to lower thigh corresponding to the site of insulin inj ection shows mild subcutaneous edema and mild hyperemia. Correlate for cellulitis. No abnormal fluid collection.
[2019-02-28] MEDS ORDERED: CEPHALEXIN 500MG STARTER PACK 4 CAP BTL PO STA (14:37)
[2019-02-28 14:53] VITALS: BP 128/72; PULSE 86; TEMP 98.6
== END 2019-02-28 14:45 | disposition home or self-care (01) ==
LOC: EC 12:52
DX: L03.116 Cellulitis of left lower limb (principal); E11.9 Type 2 diabetes mellitus without complications; I10 Essential (primary) hypertension; E78.5 Hyperlipidemia, unspecified; K21.9 Gastro-esophageal reflux disease without esophagitis; E07.9 Disorder of thyroid, unspecified; Z79.82 Long term (current) use of aspirin; Z79.4 Long term (current) use of insulin; Z79.899 Other long term (current) drug therapy; Z79.890 Hormone replacement therapy; Z88.1 Allergy status to other antibiotic agents; Z88.3 Allergy status to other anti-infective agents
CPT/HCPCS: 99283

== ENCOUNTER → 2019-12-14 | Outpatient (CLI) | payer MEDICARE, BC ==
--- NOTE | 2019-12-14 11:03 | XR ---
EXAMINATION TYPE: XR lumbosacral spine min 4V DATE OF EXAM: 12/14/2019 CLINICAL HISTORY: Low back pain. History of surgery one year ago. TECHNIQUE: Frontal, lateral, and oblique images of the lumbar spine are obtained. COMPARISON: CT abdomen and pelvis August 24, 2016. FINDINGS: There are 5 lumbar type vertebral bodies redemonstrated. The lumbar spine redemonstrates satisfactory alignment without evidence of acute fracture or dislocation. Vertebral body heights tian in within normal limits. Mild multilevel disc space narrowing. Mild to moderate disc space during a L5-S1 level redemonstrated. Laminectomy defects with spinous process resection at L3-L5 levels new from 2017. Facet arthropathy i n the lower lumbar spine. The oblique images help demonstrate mild to moderate multilevel anterior an d lateral spurring. Suspect interval progression in right-sided nephrolithiasis from prior CT in numb er and size. Correlate clinically. Asymmetric sclerosis and narrowing right sacroiliac joint. IMPRESSION: As above.
== END | disposition home or self-care (01) ==
LOC: RADXRMAIN 10:27
PROVIDERS: ATTEND Family Medicine
DX: M48.07 Spinal stenosis, lumbosacral region (principal); M47.897 Other spondylosis, lumbosacral region; M25.9 Joint disorder, unspecified
CPT/HCPCS: 72110

== ENCOUNTER 2020-01-25 05:46 | Day surgery (SDC) | payer MEDICARE, BC ==
[2020-01-20 12:33] VITALS: BMI 26.4
[2020-01-25] MEDS ORDERED: LIDOCAINE 1% (10MG/ML) FOR IV START INTRADERMA PRN (06:07)
[2020-01-25] MEDS ORDERED: LACTATED RINGERS 1,000 ML IV SCH (06:07)
[2020-01-25 06:19] VITALS: TEMP 97.2
[2020-01-25 06:22] LABS: Glucose,Whole Blood 133 mg/dL (75-99)
[2020-01-25] MEDS ORDERED: PROPOFOL 10 MG/ML 20 ML VIAL IV ONE (07:05)
[2020-01-25 07:56] LABS: Basophils % (A) 0 %; Eosinophils # (A) 0.1 k/uL (0-0.7); Eosinophils % (A) 2 %; HCT 33.6 % (39.0-53.0); Lymphocytes # (A) 1.3 k/uL (1.0-4.8); Lymphocytes % (A) 50 %; MCHC 32.7 g/dL (31.0-37.0); MCV 110.1 fL (80.0-100.0); Macrocytosis Marked; Mean Platelet Volume 7.2; Monocytes # (A) 0.1 k/uL (0-1.0); Monocytes % (A) 4 %; Neutrophils # (A) 1.1 k/uL (1.3-7.7); Neutrophils % (A) 40 %; RBC 3.05 m/uL (4.30-5.90); RDW 13.1 % (11.5-15.5); Reticulocyte % 1.7 % (0.5-2.0); WBC 2.6 k/uL (3.8-10.6)
[2020-01-25 08:02] VITALS: BP 146/78; PULSE 66; RESP 20
[2020-01-25 08:08] LABS: Platelet Count 88 k/uL (150-450)
--- NOTE | 2020-01-25 12:36 | PCN ---
PROCEDURE NOTE DATE OF PROCEDURE: 01/25/2020. PREOPERATIVE DIAGNOSIS: Pancytopenia. POSTOPERATIVE DIAGNOSIS: Pancytopenia. PROCEDURE: Bone marrow aspirate and biopsy site right iliac crest. ANESTHESIA: Local with IV systemic sedation. DETAILS: Utilizing sterile technique, the skin overlying the right iliac crest were prepared with Betadine and alcohol. After adequate sterile draping, systemic sedation and local anesthesia with 1% lidocaine, a size 11 4 inch Jamshidi needle was utilized to access the periosteum with ease. A total of 15 mL of aspirate and 5 cm bone core biopsies were obtained. The patient tolerated the procedure very well. There was no immediate procedure-related complications. TOTAL BLOOD LOSS: Less than 1 mL. RESULTS: Pending. MMODL / IJN: [id number] /
== END 2020-01-25 08:12 | disposition home or self-care (01) ==
LOC: OR 05:46
PROVIDERS: ATTEND Internal Medicine Hematology & Oncology
DX: D61.818 Other pancytopenia (principal); D69.6 Thrombocytopenia, unspecified; D72.819 Decreased white blood cell count, unspecified; D64.9 Anemia, unspecified; Z88.1 Allergy status to other antibiotic agents; I10 Essential (primary) hypertension; E78.5 Hyperlipidemia, unspecified; E11.9 Type 2 diabetes mellitus without complications; M19.90 Unspecified osteoarthritis, unspecified site; E07.9 Disorder of thyroid, unspecified; K21.9 Gastro-esophageal reflux disease without esophagitis; Z79.84 Long term (current) use of oral hypoglycemic drugs; Z79.890 Hormone replacement therapy; Z79.899 Other long term (current) drug therapy; Z90.49 Acquired absence of other specified parts of digestive tract; Z98.890 Other specified postprocedural states; Z98.52 Vasectomy status; Z80.1 Family history of malignant neoplasm of trachea, bronchus and lung
CPT/HCPCS: 85025; 85045; 38222; J2704

== ENCOUNTER → 2020-04-11 | Outpatient (CLI) | payer MEDICARE, BC ==
--- NOTE | 2020-04-11 15:50 | US ---
EXAMINATION TYPE: US abdomen complete DATE OF EXAM: 04/11/2020 COMPARISON: CT & US 2017 CLINICAL HISTORY: R94.5 Abnormal liver function test. Abnormal liver enzymes, history of cholecystect [place] EXAM MEASUREMENTS: Liver Length: 16.9 cm CBD: 0.5 cm Right Kidney: 10.1 x 6.1 x 6.1 cm Pancreas: visualized portions appear wnl, limited by overlying midline bowel gas Liver: mildly echogenic, heterogeneous, course echotexture Gallbladder: surgically absent Evidence for sonographic James's sign: no CBD: visualized portions wnl, limited by overlying bowel gas Right Kidney: no hydronephrosis, couple small echogenic foci with largest measuring 0.6cm IMPRESSION: 1. Nonobstructing inferior pole renal stone may be present. 2. Mild fatty infiltration liver
== END | disposition home or self-care (01) ==
LOC: RADUSWWP 08:01
PROVIDERS: ATTEND Family Medicine
DX: K76.0 Fatty (change of) liver, not elsewhere classified (principal)
CPT/HCPCS: 76705

== ENCOUNTER 2021-10-19 06:08 | Day surgery (SDC) | payer MEDICARE, BC ==
[2021-10-16 14:44] VITALS: BMI 24.4
[~2021-10-19 06:08] MED LIST changes: -DEXAMETHASONE SOD PHOSPHATE 10 MG/ML 1 ML VIAL IV ONE; -HEPARIN SODIUM,PORCINE 5,000 UNIT/ML 1 ML VIAL SQ ONE; -HYDROmorphone 1 MG/ML 1 ML SYRINGE IVP PRN; -ONDANSETRON 4 MG/2 ML VIAL IVP ONE; -ceFAZolin 2 GM in SODIUM CHLORIDE 0.9% 100 ML IVPB ONE
[2021-10-19 07:02] LABS: Glucose,Whole Blood 145 mg/dL (70-110)
[2021-10-19] MEDS ORDERED: PROPOFOL 10 MG/ML 20 ML VIAL IV ONE (07:02)
[2021-10-19 07:07] VITALS: TEMP 97
[2021-10-19 07:31] VITALS: RESP 16
[2021-10-19 07:42] VITALS: BP 125/54; PULSE 58
[2021-10-19 09:15] LABS: Anisocytosis Slight; HCT 27.6 % (39.0-53.0); HGB 9.2 gm/dL (13.0-17.5); MCH 39.1 pg (25.0-35.0); MCHC 33.1 g/dL (31.0-37.0); MCV 118.2 fL (80.0-100.0); Macrocytosis Marked; Mean Platelet Volume 7.7; RBC 2.34 m/uL (4.30-5.90); RDW 16.6 % (11.5-15.5); Reticulocyte % 1.8 % (0.5-2.0); WBC 1.7 k/uL (3.8-10.6)
[2021-10-19 09:17] LABS: Platelet Count 54 k/uL (150-450)
[2021-10-19 12:21] LABS: Eosinophils # (M) 0.05 k/uL (0-0.7); Lymphocytes # (M) 0.88 k/uL (1.0-4.8); Monocytes # (M) 0.07 k/uL (0-1.0); Neutrophils % (M) 41 %; Nucleated Red Blood Cells 0 /100 WBC (0-0); Total Cells Counted 100
--- NOTE | 2021-10-19 19:56 | PCN ---
PROCEDURE NOTE DATE OF PROCEDURE: 10/19/2021 PREOPERATIVE DIAGNOSIS: MDS. POSTOPERATIVE DIAGNOSIS: MDS. PROCEDURE: Bone marrow aspirate and biopsy. SITE: Right iliac crest. DETAILS: Utilizing sterile technique, the skin overlying the right iliac crest was prepared with Betadine and alcohol. After adequate sterile draping, local anesthesia and systemic sedation, a size 11 4-inch Jamshidi needle was utilized to access the periosteum with ease. A total of 15 mL of aspirate and 3 cm bone core biopsies were obtained. The patient tolerated the procedure extremely well. There were no immediate procedure- related complications. Total blood loss less than 1 mL. Results pending. MMODL / IJN: [id number] /
== END 2021-10-19 08:05 | disposition home or self-care (01) ==
LOC: OR 06:08
PROVIDERS: ATTEND Internal Medicine Hematology & Oncology
DX: D46.9 Myelodysplastic syndrome, unspecified (principal); D61.818 Other pancytopenia; D70.9 Neutropenia, unspecified; E11.9 Type 2 diabetes mellitus without complications; M19.90 Unspecified osteoarthritis, unspecified site; E78.5 Hyperlipidemia, unspecified; Z90.49 Acquired absence of other specified parts of digestive tract; Z98.52 Vasectomy status; Z98.890 Other specified postprocedural states; Z79.890 Hormone replacement therapy; Z79.4 Long term (current) use of insulin; Z79.899 Other long term (current) drug therapy; Z88.8 Allergy status to other drugs, medicaments and biological substances
CPT/HCPCS: 85025; 85045; 38222; J2704

== ENCOUNTER 2022-11-15 06:17 | Day surgery (SDC) | payer MEDICARE, BC ==
[2022-11-15 07:10] VITALS: RESP 16; TEMP 96.7
[2022-11-15 07:15] LABS: Glucose,Whole Blood 167 mg/dL (70-110)
[2022-11-15] MEDS ORDERED: PROPOFOL 10 MG/ML 20 ML VIAL IV ONE (07:16)
[2022-11-15 07:50] LABS: Basophils % (A) 0 %; Eosinophils # (A) 0.3 k/uL (0-0.7); Eosinophils % (A) 6 %; HCT 32.5 % (39.0-53.0); HGB 10.9 gm/dL (13.0-17.5); Lymphocytes # (A) 1.1 k/uL (1.0-4.8); Lymphocytes % (A) 26 %; MCHC 33.6 g/dL (31.0-37.0); MCV 107.2 fL (80.0-100.0); Macrocytosis Moderate; Mean Platelet Volume 8.3; Monocytes # (A) 0.4 k/uL (0-1.0); Monocytes % (A) 8 %; Neutrophils # (A) 2.4 k/uL (1.3-7.7); Neutrophils % (A) 55 %; RBC 3.03 m/uL (4.30-5.90); RDW 14.4 % (11.5-15.5); Reticulocyte % 2.1 % (0.5-2.0); WBC 4.3 k/uL (3.8-10.6)
[2022-11-15 07:54] LABS: Platelet Count 71 k/uL (150-450)
[2022-11-15 07:55] VITALS: BP 146/61; PULSE 52
--- NOTE | 2022-11-15 08:17 | OP ---
OPERATIVE REPORT DATE OF SERVICE : 11/15/2022 PREOPERATIVE DIAGNOSIS: Myelodysplastic syndrome. POSTOPERATIVE DIAGNOSIS: Myelodysplastic syndrome. PROCEDURE PERFORMED: Bone marrow aspirate and biopsy. Site, right iliac crest. ANESTHESIA: Local with IV systemic sedation. DESCRIPTION OF PROCEDURE: Utilizing sterile technique, the skin overlying the right iliac crest was prepared with Betadine and alcohol. After adequate sterile draping, local anesthesia and systemic sedation, size 11 4-inch Jamshidi needle was utilized to access the periosteum with ease. A total of 15 mL of aspirate and 3 cm bone core biopsies were obtained. The patient tolerated the procedure very well. There was no immediate procedure related complication. TOTAL BLOOD LOSS: Less than 1 mL. RESULTS: Pending. MMODL / IJN: [id number] /
== END 2022-11-15 08:07 | disposition home or self-care (01) ==
LOC: OR 06:17
PROVIDERS: ATTEND Internal Medicine Hematology & Oncology
DX: D46.9 Myelodysplastic syndrome, unspecified (principal)
CPT/HCPCS: 85025; 85045; 38222; J2704

== ENCOUNTER 2023-12-27 09:23 | Inpatient (IN) | payer MEDICARE, BC ==
--- NOTE | 2023-12-27 09:55 | ED ---
General Adult HPI - General Stated complaint: R Leg Swelling Time Seen by Provider: 12/27/23 09:36 Source: patient, family, RN notes reviewed Mode of arrival: ambulatory Limitations: no limitations - History of Present Illness Initial comments: Patient is an 83-year-old male present to the emergency department with concerns with right leg redness. Onset of symptoms was a couple days ago. Patient has history of myelodysplasia. Has had chemotherapy, last 1 month ago. Patient questions if he was bitten by a bug. Patient does have redness with some swelling and some discomfort. There is a puncture area posterior upper leg which patient has the most discomfort from and questions if there was a bug bite. - Related Data Home Medications Medication Instructions Recorded Confirmed Levothyroxine Sodium [Synthroid] 50 mcg PO QAM 03/29/14 11/11/22 Insulin Detemir (Levemir) [Levemir] 20 unit SQ QAM 05/12/16 11/11/22 Insulin Detemir (Levemir) [Levemir] 30 unit SQ HS PRN 05/12/16 11/11/22 Vit A/Vit C/Vit E/Zinc/Copper 1 cap PO DAILY 05/12/16 11/11/22 [ICAPS SOFTGEL] lisinopriL 40 mg PO HS 05/12/16 11/11/22 Ferrous Sulfate [Feosol] 325 mg PO DAILY 01/20/20 11/11/22 Lovastatin [Mevacor] 40 mg PO HS 01/20/20 11/11/22 hydroCHLOROthiazide 25 mg PO DAILY 01/20/20 11/11/22 amLODIPine [Norvasc] 10 mg PO QAM 10/05/21 11/11/22 Allergies Allergy/AdvReac Type Severity Reaction Status Date / Time bacitracin Allergy Rash/Hives Verified 12/27/23 09:55 [From Neosporin ([id number])] bacitracin zinc Allergy Rash/Hives Verified 12/27/23 09:55 [From Neosporin ([id number])] neomycin sulfate Allergy Rash/Hives Verified 12/27/23 09:55 [From Neosporin ([id number])] polymyxin B Allergy Rash/Hives Verified 12/27/23 09:55 [From Neosporin ([id number])] Review of Systems ROS Statement: Those systems with pertinent positive or pertinent negative responses have been documented in the HPI. ROS Other: All systems not noted in ROS Statement are negative. Constitutional: Denies: fever Eyes: Denies: eye pain ENT: Denies: ear pain Respiratory: Denies: cough, dyspnea Cardiovascular: Denies: chest pain Musculoskeletal: Denies: back pain Skin: Reports: as per HPI Past Medical History Past Medical History: Cancer, Diabetes Mellitus, Eye Disorder, Hyperlipidemia, Hypertension, Osteoarthritis (OA), Thyroid Disorder Additional Past Medical History / Comment(s): Hx gallstone, hx sepsis from liver infection r/t gallbladder problems; Skin cancer. BPH. Macular degeneration bilat eyes. Anemia, low WBC. bone marrow cancer, last chemo 09/18/22, bruises easily History of Any Multi-Drug Resistant Organisms: None Reported Past Surgical History: Back Surgery, Cholecystectomy, Orthopedic Surgery Additional Past Surgical History / Comment(s): ERCP w/ stone removal, tamiko shoulder, lumbar 4th-5th-6th back surgery. Colonoscopy, skin cancer removed Past Anesthesia/Blood Transfusion Reactions: Motion Sickness Additional Past Anesthesia/Blood Transfusion Reaction / Comment(s): Transfused 1 unit pRBC October 2021 no issues Smoking Status: Never smoker - Past Family History Father Family Medical History: Cancer, Respiratory Disorder Additional Family Medical History / Comment(s): lung cancer General Exam Limitations: no limitations General appearance: alert, in no apparent distress Head exam: Present: normocephalic Eye exam: Present: normal appearance Neck exam: Present: normal inspection Respiratory exam: Present: normal lung sounds bilaterally Cardiovascular Exam: Present: regular rate, normal rhythm GI/Abdominal exam: Present: soft. Absent: tenderness Extremities exam: Present: other (Right lower leg with erythema and mild swelling. No discomfort behind the knee. Proximal lateral posterior lower leg with small puncture with some increased swelling and tenderness. No fluctuance to suggest abscess) Neurological exam: Present: alert Psychiatric exam: Present: normal affect, normal mood Skin exam: Present: erythema Course Vital Signs 12/27/23 09:49 Temperature 97.0 F L Pulse Rate 80 Respiratory 18 Rate Blood Pressure 126/54 O2 Sat by Pulse 99 Oximetry Medical Decision Making - Medical Decision Making Was pt. sent in by a medical professional or institution (, PA, CATERING COORDINATOR, urgent care, hospital, or fdc...) When possible be specific @ -No Did you speak to anyone other than the patient for history (EMS, parent, family, police, friend...)? What history was obtained from this source @ - Is present and helps provide history including past medical history Did you review nursing and triage notes (agree or disagree)? Why? @ -I reviewed and agree with nursing and triage notes Were old charts reviewed (outside hosp., previous admission, EMS record, old EKG, old radiological studies, urgent care reports/EKG's, fdc records)? Report findings @ -No old charts were reviewed Differential Diagnosis (chest pain, altered mental status, abdominal pain women, abdominal pain men, vaginal bleeding, weakness, fever, dyspnea, syncope, headache, dizziness, GI bleed, back pain, seizure, CVA, palpatations, mental health, musculoskeletal)? @ -Differential Fever: Pneumonia, viral URI, endocarditis, myocarditis, pericarditis, otitis, sinusitis, peritonsillar Abscess, retropharyngeal Abscess, epiglottitis, peritonitis, appendicitis, Jocelyn cystitis, diverticulitis, hepatitis, colitis, UTI, PID, TOA, pyelonephritis, prostatitis, epididymitis, meningitis, encephalitis, pulmonary embolism, CVA, thyroid storm, pancreatitis, adrenal crisis, cavernous sinus thrombosis, this is not meant to be an all-inclusive list. EKG interpreted by me (3pts min.). @ -As above X-rays interpreted by me (1pt min.). @ -None done CT interpreted by me (1pt min.). @ -None done U/S interpreted by me (1pt. min.). @ -None done What testing was considered but not performed or refused? (CT, X-rays, U/S, labs)? Why? @ -None What meds were considered but not given or refused? Why? @ -None Did you discuss the management of the patient with other professionals (professionals i.e. DrKip, PA, CATERING COORDINATOR, lab, RT, psych nurse, social media editor, small engine mechanic, teacher, systems support officer, caseworker protective services)? Give summary @ -Case discussed with [facility] Dr. Harish shepard who will admit covering Dr. Pabon Was smoking cessation discussed for >3mins.? @ -No Was critical care preformed (if so, how long)? @ -No Were there social determinants of health that impacted care today? How? (Homelessness, low income, unemployed, alcoholism, drug addiction, transportation, low edu. Level, literacy, decrease access to med. care, assisted, rehab)? @ -No Was there de-escalation of care discussed even if they declined (Discuss DNR or withdrawal of care, Hospice)? DNR status @ -No What co-morbidities impacted this encounter? (DM, HTN, Smoking, COPD, CAD, Cancer, CVA, ARF, Chemo, Hep., AIDS, mental health diagnosis, sleep apnea, morbid obesity)? @ -Myelodysplasia with recent chemotherapy Was patient admitted / discharged? Hospital course, mention meds given and route, prescriptions, significant lab abnormalities, going to OR and other pertinent info. @ -Patient presents with cellulitis right lower leg, moderate however patient has myelodysplasia and recent chemotherapy and new VLAD. Patient will be admitted. Admission orders written. Consults will be placed Undiagnosed new problem with uncertain prognosis? @ -No Drug Therapy requiring intensive monitoring for toxicity (Heparin, Nitro, Insulin, Cardizem)? @ -No Were any procedures done? @ -No Diagnosis/symptom? @ -Cellulitis right lower leg, acute kidney injury Acute, or Chronic, or Acute on Chronic? @ -Acute, acute Uncomplicated (without systemic symptoms) or Complicated (systemic symptoms)? @ -Default Side effects of treatment? @ -No Exacerbation, Progression, or Severe Exacerbation? @ -No Poses a threat to life or bodily function? How? (Chest pain, USA, NM, pneumonia, PE, COPD, DKA, ARF, appy, cholecystitis, CVA, Diverticulitis, Homicidal, Suicidal, threat to staff... and all critical care pts) @ -Renal function and multiorgan dysfunction - Lab Data Result diagrams: 12/27/23 10:20 12/27/23 10:20 Lab Results 12/27/23 12/27/23 12/27/23 Range/Units 09:57 10:20 10:20 WBC 1.8 L (3.8-10.6) k/uL RBC 1.94 L (4.30-5.90) m/uL Hgb 7.4 L (13.0-17.5) gm/dL Hct 22.8 L (39.0-53.0) % MCV 118.0 H (80.0-100.0) fL MCH 38.5 H (25.0-35.0) pg MCHC 32.6 (31.0-37.0) g/dL RDW 16.7 H (11.5-15.5) % Plt Count 109 L (150-450) k/uL MPV 8.7 Neutrophils % (Manual) 61 % Lymphocytes % (Manual) 33 % Monocytes % (Manual) 5 % Basophils % (Manual) 1 % Neutrophils # (Manual) 1.10 L (1.3-7.7) k/uL Lymphocytes # (Manual) 0.59 L (1.0-4.8) k/uL Monocytes # (Manual) 0.09 (0-1.0) k/uL Basophils # (Manual) 0.02 (0-0.2) k/uL Nucleated RBCs 0 (0-0) /100 WBC Manual Slide Review Performed Anisocytosis Slight Macrocytosis Marked A Sodium 132 L (137-145) mmol/L Potassium 4.6 (3.5-5.1) mmol/L Chloride 110 H (98-107) mmol/L Carbon Dioxide 12 L (22-30) mmol/L Anion Gap 10 mmol/L BUN 56 H (9-20) mg/dL Creatinine 2.27 H (0.66-1.25) mg/dL Est GFR (CKD-EPI)AfAm 30 (>60 ml/min/1.73 sqM) Est GFR (CKD-EPI)NonAf 26 (>60 ml/min/1.73 sqM) Glucose 115 H (74-99) mg/dL POC Glucose (mg/dL) 127 H (70-110) mg/dL POC Glu Family Welfare Social Work Professor ID Belval, Kalpana Plasma Lactic Acid Ant (0.7-2.0) mmol/L Calcium 8.0 L (8.4-10.2) mg/dL Total Bilirubin 0.8 (0.2-1.3) mg/dL AST 58 (17-59) U/L ALT 49 (4-49) U/L Alkaline Phosphatase 448 H (38-126) U/L Total Protein 5.7 L (6.3-8.2) g/dL Albumin 2.8 L (3.5-5.0) g/dL 12/27/23 Range/Units 10:20 WBC (3.8-10.6) k/uL RBC (4.30-5.90) m/uL Hgb (13.0-17.5) gm/dL Hct (39.0-53.0) % MCV (80.0-100.0) fL MCH (25.0-35.0) pg MCHC (31.0-37.0) g/dL RDW (11.5-15.5) % Plt Count (150-450) k/uL MPV Neutrophils % (Manual) % Lymphocytes % (Manual) % Monocytes % (Manual) % Basophils % (Manual) % Neutrophils # (Manual) (1.3-7.7) k/uL Lymphocytes # (Manual) (1.0-4.8) k/uL Monocytes # (Manual) (0-1.0) k/uL Basophils # (Manual) (0-0.2) k/uL Nucleated RBCs (0-0) /100 WBC Manual Slide Review Anisocytosis Macrocytosis Sodium (137-145) mmol/L Potassium (3.5-5.1) mmol/L Chloride (98-107) mmol/L Carbon Dioxide (22-30) mmol/L Anion Gap mmol/L BUN (9-20) mg/dL Creatinine (0.66-1.25) mg/dL Est GFR (CKD-EPI)AfAm (>60 ml/min/1.73 sqM) Est GFR (CKD-EPI)NonAf (>60 ml/min/1.73 sqM) Glucose (74-99) mg/dL POC Glucose (mg/dL) (70-110) mg/dL POC Glu Family Welfare Social Work Professor ID Plasma Lactic Acid Ant 1.9 (0.7-2.0) mmol/L Calcium (8.4-10.2) mg/dL Total Bilirubin (0.2-1.3) mg/dL AST (17-59) U/L ALT (4-49) U/L Alkaline Phosphatase (38-126) U/L Total Protein (6.3-8.2) g/dL Albumin (3.5-5.0) g/dL Disposition Clinical Impression: Cellulitis, Acute kidney injury Disposition: ADMITTED IP TO THIS HOSP Is patient prescribed a controlled substance at d/c from ED?: No Referrals: Alicia Jones MD [Primary Care Provider] - 1-2 days Time of Disposition: 11:25
[2023-12-27 09:58] LABS: Glucose,Whole Blood 127 mg/dL (70-110)
[2023-12-27 10:49] LABS: ALT 49 U/L (4-49); AST 58 U/L (17-59); African American GFR (CKD) 30 (>60 ml/min/1.73 sqM); Albumin 2.8 g/dL (3.5-5.0); Alkaline Phosphatase 448 U/L (38-126); Anion Gap 10 mmol/L; Blood Urea Nitrogen 56 mg/dL (9-20); Carbon Dioxide 12 mmol/L (22-30); Chloride 110 mmol/L (98-107); Glucose 115 mg/dL (74-99); Non-African American GFR(CKD) 26 (>60 ml/min/1.73 sqM); Potassium 4.6 mmol/L (3.5-5.1); Sodium 132 mmol/L (137-145); Total Bilirubin 0.8 mg/dL (0.2-1.3); Total Protein 5.7 g/dL (6.3-8.2)
[2023-12-27 10:52] LABS: Anisocytosis Slight; HCT 22.8 % (39.0-53.0); HGB 7.4 gm/dL (13.0-17.5); MCH 38.5 pg (25.0-35.0); MCHC 32.6 g/dL (31.0-37.0); Macrocytosis Marked; Mean Platelet Volume 8.7; Platelet Count 109 k/uL (150-450); RBC 1.94 m/uL (4.30-5.90); RDW 16.7 % (11.5-15.5); WBC 1.8 k/uL (3.8-10.6)
[2023-12-27 11:15] LABS: Basophils # (M) 0.02 k/uL (0-0.2); Lymphocytes # (M) 0.59 k/uL (1.0-4.8); Monocytes # (M) 0.09 k/uL (0-1.0); Neutrophils % (M) 61 %; Nucleated Red Blood Cells 0 /100 WBC (0-0); Total Cells Counted 100
[2023-12-27] MEDS ORDERED: ACETAMINOPHEN TAB 325 MG TAB PO PRN (11:26)
[2023-12-27] MEDS ORDERED: NALOXONE 0.4 MG/ML 1 ML VIAL IV PRN (11:26)
[2023-12-27] MEDS: SODIUM CHLORIDE 0.9% 1,000 ML IV SCH (11:41)
[2023-12-27] MEDS: LEVOFLOXACIN 750MG-D5W PMX 750 MG in DEXTROSE/WATER 1 150ML.BAG IVPB SCH (11:41)
[2023-12-27] MEDS: SODIUM CHLORIDE 0.9% 500 ML 500 ML IV STA (11:41)
[2023-12-27] MEDS ORDERED: DEXTROSE 50% SYRINGE 50 ML IVP PRN ×2 (13:11)
[2023-12-27] MEDS: ACYCLOVIR 200 MG CAP PO SCH (13:39)
--- NOTE | 2023-12-27 14:06 | P.HPIM ---
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 Patient denied any fever or chills. Patient stated that he is unsure but he might have bumped his leg while getting out of the car about 2 weeks ago and started to notice more swelling, redness and pain in the right leg since then. Patient also complaining of loose stools and abdominal distention, denied any abdominal pain. Patient stated that he has chronic lower extremity swelling and takes Lasix for that but right leg has been more swollen and red for last 2 weeks. Patient denied any headache, sore throat, productive cough, chest pain, palpitation, shortness of breath, nausea vomiting abdominal pain dysuria urgency frequency weakness or numbness of the extremities. In the ED patient was afebrile, heart rate 88, respiratory rate 16, blood pressure 131/58, saturating 100% on room air. WBC is 1.8, hemoglobin 7.4, platelet 109. Sodium 132, potassium 4.6, BUN 56, creatinine 2.27, lactic acid 1.9. REVIEW OF SYSTEMS: CONSTITUTIONAL: Complains of malaise. HEENT: No recent visual problems or hearing problems. Denied any sore throat. CARDIOVASCULAR: No chest pain, orthopnea, PND, no palpitations, no syncope. PULMONARY: No shortness of breath, no cough, no hemoptysis. GASTROINTESTINAL: Complains of diarrhea. No nausea vomiting or abdominal pain. NEUROLOGICAL: No headaches, no weakness, no numbness. HEMATOLOGICAL: Denies any bleeding or petechiae. GENITOURINARY: Denies any burning micturition, frequency, or urgency. MUSCULOSKELETAL/RHEUMATOLOGICAL: Complains of bilateral lower extremity swelling, right lower extremity more swollen red and painful. ENDOCRINE: Denies any polyuria or polydipsia. The rest of the 14-point review of systems is negative. PHYSICAL EXAMINATION: GENERAL: The patient is A&O x3, NAD HEENT: EOMI, Sclerae anicteric, Moist Mucous membranes Neck: Supple, Non tender, No JVD PULMONARY: Equal breath souds B/L, No wheezing, No crackles. CARDIOVASCULAR: S1, S2 present. No murmurs, rubs, or gallops. ABDOMEN: Soft, nontender, nondistended, normoactive bowel sounds. No guarding or rebound tenderness. MUSCULOSKELETAL: Bilateral edema, right lower extremity more edematous, warmth, tenderness, erythema. EXTREMITIES: No cyanosis, clubbing, or pedal edema. NEUROLOGICAL: CN 2-12 grossly intact. No FND Assessment and plan: Right lower extremity cellulitis: Presented with right lower extremity swelling, warmth, pain, tenderness for 2 weeks Ultrasound venous to rule out DVT Antibiotics: Currently on Levaquin, allergic to neomycin ID consult Blood cultures Diarrhea: Gentle IV fluids Stool culture, C. difficile. Diabetes mellitus: Accu-Cheks, diabetic diet Hypoglycemia protocol Lantus, sliding scale insulin Hypothyroidism: Synthroid MDS: Pancytopenia No sign or symptom of active bleed Monitor CBC Transfuse for hemoglobin less than 7.0 Hematology consult VLAD on CKD: Hold Lasix, lisinopril Gentle IV fluids Monitor renal function Avoid nephrotoxin DVT prophylaxis SCD Monitor vital signs and labs Continue telemetry monitoring Labs and medication were reviewed. Continue same treatment. Resume home medication. Further recommendations as per clinical course of the patient Dictation was produced using [employer] dictation software. please excuse any grammatical, word or spelling errors. Past Medical History Past Medical History: Cancer, Diabetes Mellitus, Eye Disorder, Hyperlipidemia, Hypertension, Osteoarthritis (OA), Thyroid Disorder Additional Past Medical History / Comment(s): Hx gallstone, hx sepsis from liver infection r/t gallbladder problems; Skin cancer. BPH. Macular degeneration bilat eyes. Anemia, low WBC. bone marrow cancer, last chemo 09/18/22, bruises easily History of Any Multi-Drug Resistant Organisms: None Reported Past Surgical History: Back Surgery, Cholecystectomy, Orthopedic Surgery Additional Past Surgical History / Comment(s): ERCP w/ stone removal, tamiko shoulder, lumbar 4th-5th-6th back surgery. Colonoscopy, skin cancer removed Past Anesthesia/Blood Transfusion Reactions: Motion Sickness Additional Past Anesthesia/Blood Transfusion Reaction / Comment(s): Transfused 1 unit pRBC October 2021 no issues Past Psychological History: No Psychological Hx Reported Smoking Status: Never smoker Past Alcohol Use History: None Reported Past Drug Use History: None Reported - Past Family History Father Family Medical History: Cancer, Respiratory Disorder Additional Family Medical History / Comment(s): lung cancer Medications and Allergies Home Medications Medication Instructions Recorded Confirmed Type Levothyroxine Sodium [Synthroid] 50 mcg PO DAILY 03/29/14 12/27/23 History lisinopriL 40 mg PO HS 05/12/16 12/27/23 History Ferrous Sulfate [Feosol] 325 mg PO DAILY 01/20/20 12/27/23 History Lovastatin [Mevacor] 40 mg PO HS 01/20/20 12/27/23 History hydroCHLOROthiazide 25 mg PO DAILY 01/20/20 12/27/23 History amLODIPine [Norvasc] 10 mg PO DAILY 10/05/21 12/27/23 History Acyclovir [Zovirax] 400 mg PO DAILY 12/27/23 12/27/23 History Diclofenac Sodium [Voltaren 2 gm TOPICAL QID 12/27/23 12/27/23 History Arthritis Pain 1% Gel] Furosemide [Lasix] 20 mg PO DAILY 12/27/23 12/27/23 History Ibuprofen [Motrin] 800 mg PO TID PRN 12/27/23 12/27/23 History Insulin Glargine,Hum.rec.anlog 20 unit SQ HS 12/27/23 12/27/23 History [Basaglar Kwikpen U-100] Insulin Glargine,Hum.rec.anlog See Protocol SQ DAILY 12/27/23 12/27/23 History [Basaglar Kwikpen U-100] metFORMIN HCL 1,000 mg PO BID 12/27/23 12/27/23 History Allergies Allergy/AdvReac Type Severity Reaction Status Date / Time bacitracin Allergy Rash/Hives Verified 12/27/23 11:53 [From Neosporin ([id number])] bacitracin zinc Allergy Rash/Hives Verified 12/27/23 11:53 [From Neosporin ([id number])] neomycin sulfate Allergy Rash/Hives Verified 12/27/23 11:53 [From Neosporin ([id number])] polymyxin B Allergy Rash/Hives Verified 12/27/23 11:53 [From Neosporin ([id number])] Physical Exam Vitals: Vital Signs Temp Pulse Pulse Resp BP BP Pulse Ox 12/27/23 12:31 97.7 F 88 16 131/58 100 12/27/23 12:22 70 18 119/80 97 12/27/23 09:49 97.0 F L 80 18 126/54 99 Intake and Output 12/26/23 12/27/23 12/27/23 22:59 06:59 14:59 Other: Weight 83.915 kg Results CBC & Chem 7: 12/27/23 10:20 12/27/23 10:20 Labs: Abnormal Lab Results - Last 24 Hours (Table) 12/27/23 12/27/23 12/27/23 Range/Units 09:57 10:20 10:20 WBC 1.8 L (3.8-10.6) k/uL RBC 1.94 L (4.30-5.90) m/uL Hgb 7.4 L (13.0-17.5) gm/dL Hct 22.8 L (39.0-53.0) % MCV 118.0 H (80.0-100.0) fL MCH 38.5 H (25.0-35.0) pg RDW 16.7 H (11.5-15.5) % Plt Count 109 L (150-450) k/uL Neutrophils # (Manual) 1.10 L (1.3-7.7) k/uL Lymphocytes # (Manual) 0.59 L (1.0-4.8) k/uL Macrocytosis Marked A Sodium 132 L (137-145) mmol/L Chloride 110 H (98-107) mmol/L Carbon Dioxide 12 L (22-30) mmol/L BUN 56 H (9-20) mg/dL Creatinine 2.27 H (0.66-1.25) mg/dL Glucose 115 H (74-99) mg/dL POC Glucose (mg/dL) 127 H (70-110) mg/dL Calcium 8.0 L (8.4-10.2) mg/dL Alkaline Phosphatase 448 H (38-126) U/L Total Protein 5.7 L (6.3-8.2) g/dL Albumin 2.8 L (3.5-5.0) g/dL Thrombosis Risk Factor Assmnt - Choose All That Apply Any of the Below Risk Factors Present?: No Each Risk Factor Represents 2 Points: Malignancy Thrombosis Risk Factor Assessment Total Risk Factor Score: 2 Thrombosis Risk Factor Assessment Level: Low Risk
[2023-12-27] MEDS: traMADol 50 MG TAB PO PRN (14:42)
[2023-12-27] MEDS: DAPTOmycin 350 MG in SODIUM CHLORIDE 0.9% 50 ML IVPB SCH (16:48)
--- NOTE | 2023-12-27 17:12 | US ---
EXAMINATION TYPE: US venous doppler duplex LE DATE OF EXAM: 12/27/2023 5:00 PM COMPARISON: NONE CLINICAL INDICATION: Male, 83 years old with history of Edema; Cellulitis rt calf, edema bilaterally SIDE PERFORMED: Bilateral TECHNIQUE: The lower extremity deep venous system is examined utilizing real time linear array sonog tiana with graded compression, doppler sonography and color-flow sonography. VESSELS IMAGED: Common Femoral Vein Deep Femoral Vein Greater Saphenous Vein * Femoral Vein Popliteal Vein Small Saphenous Vein * Proximal Calf Veins (* superficial vessels) Right Leg: Negative for DVT distal Fem V obscured by edema, the GSV at the level of the popliteal fo ssa shows chronic calcified thrombus Left Leg: Negative for DVT exam limited by edema IMPRESSION: 1. No evidence for deep vein thrombosis. 2. 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 [facility], , 12/27/2023 5:10 PM
[2023-12-27 17:13] LABS: Glucose,Whole Blood 181 mg/dL (70-110)
[2023-12-27] MEDS: INSULIN ASPART (NovoLOG) 100 UNIT/ML VIAL SQ SCH (18:26)
[2023-12-27 20:06] LABS: Glucose,Whole Blood 191 mg/dL (70-110)
[2023-12-27] MEDS: INSULIN DETEMIR (LEVEMIR) 100 UNIT/ML SYR SQ SCH (20:08)
[2023-12-27] MEDS ORDERED: INSULIN DETEMIR (LEVEMIR) 100 UNIT/ML SYR SQ SCH (21:00)
[2023-12-27] MEDS ORDERED: ATORVASTATIN 10 MG TAB PO SCH (21:00)
[2023-12-28 07:13] LABS: Glucose,Whole Blood 105 mg/dL (70-110)
[2023-12-28] MEDS: FERROUS SULFATE 325 MG TAB PO SCH (09:34)
[2023-12-28] MEDS: amLODIPine 10 MG TAB PO SCH (09:35)
[2023-12-28] MEDS: LEVOTHYROXINE 50 MCG TAB PO SCH (09:35)
[2023-12-28 10:00] LABS: ALT 47 U/L (8-49); AST 40 U/L (13-35); Albumin 2.8 g/dL (3.8-4.9); Albumin/Globulin Ratio 1.33 Ratio (1.60-3.17); Alkaline Phosphatase 429 U/L (41-126); BUN/Creat Ratio 26.35 Ratio (12.00-20.00); Blood Urea Nitrogen 60.6 mg/dL (9.0-27.0); Calcium 7.4 mg/dL (8.7-10.3); Carbon Dioxide 12.5 mmol/L (21.6-31.8); Chloride 110 mmol/L (96-109); Globulin 2.1 g/dL (1.6-3.3); Glucose 123 mg/dL (70-110); Sodium 132 mmol/L (135-145); Total Bilirubin 0.4 mg/dL (0.3-1.2); Total Protein 4.9 g/dL (6.2-8.2)
--- NOTE | 2023-12-28 10:13 | P.CONS ---
History of Present Illness - Reason for Consult Consult date: 12/27/23 Cellulitis Requesting physician: Lonny Grossman - Chief Complaint Left leg wound and redness x few days - History of Present Illness Patient is a 83-year-old male with a past medical history significant for diabetes mellitus hypertension hyperlipidemia osteoarthritis MDS presenting to the hospital for evaluation of right lower extremity swelling and redness and pain in this patient symptom has been getting worse for almost 2 weeks patient denies any history of any trauma however he did have a small puncture area/wound to the right lateral leg with surrounding swelling and redness patient describing the pain to be sharp moderate intensity without any radiation with associated swelling and redness patient denies high-grade fever or chills no chest pain shortness of breath or cough denies any nausea or vomiting has been complaining of some diarrhea with the symptoms the patient has been evaluated on presentation to the hospital the patient was afebrile and no fever has been recorded subsequently patient was not tachycardic hypotensive or hypoxic patient did have white count of 1.8 BUN and creatinine has been elevated liver enzymes are normal patient was started on Levaquin admit to the hospital infectious disease was consulted for further management of antibiotic therapy Review of Systems Positive point and negatives has been mentioned in the HPI, complete review of systems was performed and all other systems are negative Past Medical History Past Medical History: Cancer, Diabetes Mellitus, Eye Disorder, Hyperlipidemia, Hypertension, Osteoarthritis (OA), Thyroid Disorder Additional Past Medical History / Comment(s): Hx gallstone, hx sepsis from liver infection r/t gallbladder problems; Skin cancer. BPH. Macular degeneration bilat eyes. Anemia, low WBC. bone marrow cancer, last chemo 09/18/22, bruises easily History of Any Multi-Drug Resistant Organisms: None Reported Past Surgical History: Back Surgery, Cholecystectomy, Orthopedic Surgery Additional Past Surgical History / Comment(s): ERCP w/ stone removal, tamiko shoulder, lumbar 4th-5th-6th back surgery. Colonoscopy, skin cancer removed Past Anesthesia/Blood Transfusion Reactions: Motion Sickness Additional Past Anesthesia/Blood Transfusion Reaction / Comm: Transfused 1 unit pRBC October 2021 no issues Past Psychological History: No Psychological Hx Reported Smoking Status: Never smoker Past Alcohol Use History: None Reported Past Drug Use History: None Reported - Past Family History Father Family Medical History: Cancer, Respiratory Disorder Additional Family Medical History / Comment(s): lung cancer Medications and Allergies Home Medications Medication Instructions Recorded Confirmed Type Levothyroxine Sodium [Synthroid] 50 mcg PO DAILY 03/29/14 12/27/23 History lisinopriL 40 mg PO HS 05/12/16 12/27/23 History Ferrous Sulfate [Feosol] 325 mg PO DAILY 01/20/20 12/27/23 History Lovastatin [Mevacor] 40 mg PO HS 01/20/20 12/27/23 History hydroCHLOROthiazide 25 mg PO DAILY 01/20/20 12/27/23 History amLODIPine [Norvasc] 10 mg PO DAILY 10/05/21 12/27/23 History Acyclovir [Zovirax] 400 mg PO DAILY 12/27/23 12/27/23 History Diclofenac Sodium [Voltaren 2 gm TOPICAL QID 12/27/23 12/27/23 History Arthritis Pain 1% Gel] Furosemide [Lasix] 20 mg PO DAILY 12/27/23 12/27/23 History Ibuprofen [Motrin] 800 mg PO TID PRN 12/27/23 12/27/23 History Insulin Glargine,Hum.rec.anlog 20 unit SQ HS 12/27/23 12/27/23 History [Basaglar Kwikpen U-100] Insulin Glargine,Hum.rec.anlog See Protocol SQ DAILY 12/27/23 12/27/23 History [Basaglar Kwikpen U-100] metFORMIN HCL 1,000 mg PO BID 12/27/23 12/27/23 History Allergies Allergy/AdvReac Type Severity Reaction Status Date / Time bacitracin Allergy Rash/Hives Verified 12/27/23 11:53 [From Neosporin ([id number])] bacitracin zinc Allergy Rash/Hives Verified 12/27/23 11:53 [From Neosporin ([id number]-[id number])] neomycin sulfate Allergy Rash/Hives Verified 12/27/23 11:53 [From Neosporin ([id number])] polymyxin B Allergy Rash/Hives Verified 12/27/23 11:53 [From Neosporin ([id number]-[id number])] Physical Exam Vitals: Vital Signs Temp Pulse Pulse Resp BP BP Pulse Ox 12/27/23 12:31 97.7 F 88 16 131/58 100 12/27/23 12:22 70 18 119/80 97 12/27/23 09:49 97.0 F L 80 18 126/54 99 Intake and Output 12/26/23 12/27/23 12/27/23 22:59 06:59 14:59 Other: Weight 83.915 kg GENERAL DESCRIPTION: Elderly male up in the chair, no distress. No tachypnea or accessory muscle of respiration use. HEENT: Shows Pallor , no scleral icterus. Oral mucous membrane is dry. No pharyngeal erythema or thrush NECK: Trachea central, no thyromegaly. LUNGS: Unlabored breathing. Clear to auscultation anteriorly. No wheeze or crackle. HEART: S1, S2, regular rate and rhythm. No loud murmur ABDOMEN: Soft, no tenderness , guarding or rigidity, no organomegaly EXTREMITIES: Right leg did have a small puncture wound with some purulent drainage has been cultured with surrounding swelling and redness tender to touch SKIN: No rash, no masses palpable. NEUROLOGICAL: The patient is awake, alert, oriented x3, mood and affect normal. Results CBC & Chem 7: 12/27/23 10:20 12/28/23 04:02 Labs: Abnormal Lab Results - Last 24 Hours (Table) 12/27/23 12/27/23 12/27/23 Range/Units 09:57 10:20 10:20 WBC 1.8 L (3.8-10.6) k/uL RBC 1.94 L (4.30-5.90) m/uL Hgb 7.4 L (13.0-17.5) gm/dL Hct 22.8 L (39.0-53.0) % MCV 118.0 H (80.0-100.0) fL MCH 38.5 H (25.0-35.0) pg RDW 16.7 H (11.5-15.5) % Plt Count 109 L (150-450) k/uL Neutrophils # (Manual) 1.10 L (1.3-7.7) k/uL Lymphocytes # (Manual) 0.59 L (1.0-4.8) k/uL Macrocytosis Marked A Sodium 132 L (137-145) mmol/L Chloride 110 H (98-107) mmol/L Carbon Dioxide 12 L (22-30) mmol/L BUN 56 H (9-20) mg/dL Creatinine 2.27 H (0.66-1.25) mg/dL Glucose 115 H (74-99) mg/dL POC Glucose (mg/dL) 127 H (70-110) mg/dL Calcium 8.0 L (8.4-10.2) mg/dL Alkaline Phosphatase 448 H (38-126) U/L Total Protein 5.7 L (6.3-8.2) g/dL Albumin 2.8 L (3.5-5.0) g/dL Assessment and Plan (1) Cellulitis of right leg Current Visit: Yes Status: Acute Code(s): L03.115 - CELLULITIS OF RIGHT LOWER LIMB SNOMED Code(s): 22599000159720874 Plan: 1patient presented to hospital with a left lower extremity pain swelling and redness in this patient who did have a small wound with some purulent drainage has been culture with surrounding cellulitis likely from gram-positive skin seda such as staph/strep. 2patient with renal insufficiency high risk of nephrotoxicity. 3we will apply Aquacel silver dressing to the left leg wound followed by Anthony wrap to get some of the swelling down. 4discontinue Levaquin. 5start the patient on daptomycin 4 mg/kg daily. at the bedside question concern answered. We will follow on clinical condition and cultures to further adjust medication if needed Thank you for this consultation we will follow the patient along with you Dictation was produced using [email or web address] dictation software. please excuse any grammatical, word or spelling errors. Time with Patient: Greater than 30
[2023-12-28 10:34] LABS: Basophils # (A) 0.01 X 10*3/uL (0.00-0.10); Basophils % (A) 0.7 %; Eosinophils # (A) 0 X 10*3/uL (0.04-0.35); Eosinophils % (A) 0 %; HCT 18.8 % (37.2-50.0); HGB 6.2 g/dL (12.0-17.0); Immature Platelet Fraction 2.4 % (1.1-6.1); Lymphocytes # (A) 0.53 X 10*3/uL (0.90-5.00); Lymphocytes % (A) 37.6 %; MCH 39.5 pg (27.0-32.0); MCV 119.7 FL (80.0-97.0); Macrocytosis (M) 3+; Mean Platelet Volume 10.7 FL (9.5-12.2); Monocytes # (A) 0.17 X 10*3/uL (0.20-1.00); Monocytes % (A) 12.1 %; NRBC Per 100 WBC 0 X 10*3/uL (0.00-0.01); Neutrophils # (A) 0.69 X 10*3/uL (1.80-7.70); Neutrophils % (A) 48.9 %; Platelet Count 72 X 10*3/uL (140-440); RBC 1.57 X 10*6/uL (4.10-5.60); Toxic Granulation 2+; WBC 1.41 X 10*3/uL (4.50-10.00)
[2023-12-28 11:51] LABS: Glucose,Whole Blood 160 mg/dL (70-110)
--- NOTE | 2023-12-28 12:30 | P.NPCON ---
History of Present Illness - Reason for Consult Consult date: 12/28/23 - Chief Complaint Left Leg Wound - History of Present Illness Patient is a 83-year-old male with a past medical history significant for diabetes mellitus hypertension hyperlipidemia osteoarthritis MDS presenting to the hospital for evaluation of right lower extremity swelling and redness and pain in this patient symptom has been getting worse for almost 2 weeks patient denies any history of any trauma however he did have a small puncture area/wound to the right lateral leg with surrounding swelling and redness patient describing the pain to be sharp moderate intensity without any radiation with associated swelling and redness patient denies high-grade fever or chills no chest pain shortness of breath or cough denies any nausea or vomiting has been complaining of some diarrhea. He is currently undergoing chemotherapy for MDS. Denies history of kidney issues. Was started on Lasix 2 weeks ago by primary due to leg swelling and states his appetite has been very poor lately. Vital signs are reviewed. General: No acute distress. AAOx3 HEENT: Head exam is unremarkable. Lungs: Bilateral breath sounds present; no rhonchi, wheezes, or rales. Heart: Rate and rhythm are regular. S1-S2 present. No murmur/rub/gallops. Abdomen: Soft, nontender, nondistended. Bowel sounds present. Extremities: no edema Review of Systems Constitutional: Reports as per HPI Past Medical History Past Medical History: Cancer, Diabetes Mellitus, Eye Disorder, Hyperlipidemia, Hypertension, Osteoarthritis (OA), Thyroid Disorder Additional Past Medical History / Comment(s): Hx gallstone, hx sepsis from liver infection r/t gallbladder problems; Skin cancer. BPH. Macular degeneration bilat eyes. Anemia, low WBC. bone marrow cancer, last chemo 09/18/22, bruises easily History of Any Multi-Drug Resistant Organisms: None Reported Past Surgical History: Back Surgery, Cholecystectomy, Orthopedic Surgery Additional Past Surgical History / Comment(s): ERCP w/ stone removal, tamiko shoulder, lumbar 4th-5th-6th back surgery. Colonoscopy, skin cancer removed Past Anesthesia/Blood Transfusion Reactions: Motion Sickness Additional Past Anesthesia/Blood Transfusion Reaction / Comment(s): Transfused 1 unit pRBC October 2021 no issues Past Psychological History: No Psychological Hx Reported Smoking Status: Never smoker Past Alcohol Use History: None Reported Past Drug Use History: None Reported - Past Family History Father Family Medical History: Cancer, Respiratory Disorder Additional Family Medical History / Comment(s): lung cancer Medications and Allergies Home Medications Medication Instructions Recorded Confirmed Type Levothyroxine Sodium [Synthroid] 50 mcg PO DAILY 03/29/14 12/27/23 History lisinopriL 40 mg PO HS 05/12/16 12/27/23 History Ferrous Sulfate [Feosol] 325 mg PO DAILY 01/20/20 12/27/23 History Lovastatin [Mevacor] 40 mg PO HS 01/20/20 12/27/23 History hydroCHLOROthiazide 25 mg PO DAILY 01/20/20 12/27/23 History amLODIPine [Norvasc] 10 mg PO DAILY 10/05/21 12/27/23 History Acyclovir [Zovirax] 400 mg PO DAILY 12/27/23 12/27/23 History Diclofenac Sodium [Voltaren 2 gm TOPICAL QID 12/27/23 12/27/23 History Arthritis Pain 1% Gel] Furosemide [Lasix] 20 mg PO DAILY 12/27/23 12/27/23 History Ibuprofen [Motrin] 800 mg PO TID PRN 12/27/23 12/27/23 History Insulin Glargine,Hum.rec.anlog 20 unit SQ HS 12/27/23 12/27/23 History [Basaglar Kwikpen U-100] Insulin Glargine,Hum.rec.anlog See Protocol SQ DAILY 12/27/23 12/27/23 History [Basaglar Kwikpen U-100] metFORMIN HCL 1,000 mg PO BID 12/27/23 12/27/23 History Allergies Allergy/AdvReac Type Severity Reaction Status Date / Time bacitracin Allergy Rash/Hives Verified 12/27/23 11:53 [From Neosporin ([id number])] bacitracin zinc Allergy Rash/Hives Verified 12/27/23 11:53 [From Neosporin ([id number]-[id number])] neomycin sulfate Allergy Rash/Hives Verified 12/27/23 11:53 [From Neosporin ([id number]-mvf-[id number])] polymyxin B Allergy Rash/Hives Verified 12/27/23 11:53 [From Neosporin ([id number]-[id number])] Physical Exam Vitals: Vital Signs Temp Pulse Pulse Resp BP BP BP 12/28/23 07:06 97.5 F L 70 16 119/53 12/28/23 02:01 103/53 12/28/23 01:53 97.7 F 74 16 101/44 12/27/23 20:00 97.6 F 81 16 109/58 12/27/23 12:31 97.7 F 88 16 131/58 12/27/23 12:22 70 18 119/80 Pulse Ox 12/28/23 07:06 99 12/28/23 02:01 12/28/23 01:53 100 12/27/23 20:00 99 12/27/23 12:31 100 12/27/23 12:22 97 Intake and Output 12/27/23 12/28/23 12/28/23 22:59 06:59 14:59 Intake Total 1110 1490 200 Balance 1110 1490 200 Intake: Intake, IV Titration 450 900 Amount Levofloxacin 750Mg-D5w 150 Pmx 750 mg In Dextrose/ Water 1 150ml.bag @ 100 mls/hr IVPB Q48H SER[facility] Rx#: [id number] Sodium Chloride 0.9% 1, 300 900 000 ml @ 75 mls/hr IV . [id number] SERINA Rx#:[id number] Oral 660 590 200 Other: # Voids 1 # Bowel Movements 1 Results - Lab Results Most recent lab results Calcium 7.4 mg/dL (8.7-10.3) L 12/28/23 04:02 Magnesium 2.0 mg/dL (1.5-2.4) 12/28/23 04:02 12/28/23 04:02 12/28/23 04:02 Assessment and Plan Assessment: 1. Non-oliguric VLAD likely ATN from volume depletion and Lasix use. Baseline creatinine 1.1, presented and stable at 2.3. 2. LLE cellulitis 3. Essential HTN 4. MDS currently on chemotherapy 5. Pancytopenia due to chemotherapy Plan: Continue IVF hydration Was on Lasix for 2 weeks at home, avoid any further diuretics Check CPK, strict I/Os; bladder scan, renal US, UA Supportive care for now Transfuse given Hb <7.0 Further recommendation pending work-up
[2023-12-28 14:01] LABS: Appearance,Urine Clear (Clear); Bilirubin,Urine Negative (Negative); Blood,Urine Negative (Negative); Color,Urine Light Yellow; Glucose,Urine (UA) Negative (Negative); Ketones,Urine Negative (Negative); Leukocyte Esterase,Urine Negative (Negative); Nitrite,Urine Negative (Negative); Protein,Urine Trace (Negative); Specific Gravity,Urine 1.015 (1.001-1.035); Urobilinogen,Urine <2.0 mg/dL (<2.0)
--- NOTE | 2023-12-28 15:43 | P.PN ---
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 Patient denied any fever or chills. Patient stated that he is unsure but he might have bumped his leg while getting out of the car about 2 weeks ago and started to notice more swelling, redness and pain in the right leg since then. Patient also complaining of loose stools and abdominal distention, denied any abdominal pain. Patient stated that he has chronic lower extremity swelling and takes Lasix for that but right leg has been more swollen and red for last 2 weeks. Patient denied any headache, sore throat, productive cough, chest pain, palpitation, shortness of breath, nausea vomiting abdominal pain dysuria urgency frequency weakness or numbness of the extremities. In the ED patient was afebrile, heart rate 88, respiratory rate 16, blood pressu re 131/58, saturating 100% on room air. WBC is 1.8, hemoglobin 7.4, platelet 109. Sodium 132, potassium 4.6, BUN 56, creatinine 2.27, lactic acid 1.9. 12/28/2023--patient was seen and examined today. Patient's hemoglobin dropped to 6.2 today, WBCs 1.4, platelets 72. 1 unit of irradiated packed RBCs ordered. BUN is 60, creatinine 2.3. Nephrology consulted and following. Hematology following. Patient currently on daptomycin per infectious disease. Ultrasound venous was negative for DVT. Assessment and plan: Right lower extremity cellulitis: Presented with right lower extremity swelling, warmth, pain, tenderness for 2 weeks Ultrasound venous --negative for DVT. Antibiotics: On daptomycin ID consulted-- Blood cultures Diarrhea: Gentle IV fluids Stool culture, C. difficile. Diabetes mellitus: Accu-Cheks, diabetic diet Hypoglycemia protocol Lantus, sliding scale insulin Hypothyroidism: Synthroid MDS: Pancytopenia No sign or symptom of active bleed Monitor CBC Transfuse for hemoglobin less than 7.0 Hematology consulted Status post 1 unit of packed RBCsirradiated on 12/27 due to hemoglobin less than 7. VLAD on CKD: Hold Lasix, lisinopril Gentle IV fluids Monitor renal function Avoid nephrotoxin Nephrology consultedrecommended check CPK, monitor I&O's, bladder scan, renal u ltrasound, UA. DVT prophylaxis SCD Monitor vital signs and labs Labs and medication were reviewed. Continue same treatment. Further recommendations as per clinical course of the patient PHYSICAL EXAMINATION: GENERAL: The patient is A&O x3, NAD HEENT: EOMI, Sclerae anicteric, Moist Mucous membranes Neck: Supple, Non tender, No JVD PULMONARY: Equal breath souds B/L, No wheezing, No crackles. CARDIOVASCULAR: S1, S2 present. No murmurs, rubs, or gallops. ABDOMEN: Soft, nontender, nondistended, normoactive bowel sounds. No guarding or rebound tenderness. MUSCULOSKELETAL: Bilateral edema, right lower extremity more edematous, warmth, tenderness, erythema. EXTREMITIES: No cyanosis, clubbing, or pedal edema. NEUROLOGICAL: CN 2-12 grossly intact. No FND REVIEW OF SYSTEMS: CONSTITUTIONAL: No fever or chills. CARDIOVASCULAR: No chest pain, palpitations or syncope. PULMONARY: No shortness of breath, no cough, sore throat. GASTROINTESTINAL: No nausea, vomiting, diarrhea, abdominal pain. : No Dysuria, urgency, frequency. Extremities: No edema. NEUROLOGICAL: No headaches, no weakness, or numbness Dictation was produced using [employer]PASS dictation software. please excuse any gr ammatical, word or spelling errors. Objective - Vital Signs Vital signs: Vital Signs Temp 97.5 F L 12/28/23 14:37 Pulse 73 12/28/23 14:37 Resp 18 12/28/23 14:37 BP 128/53 12/28/23 14:37 Pulse Ox 100 12/28/23 14:37 FiO2 Intake & Output 12/27/23 12/28/23 12/28/23 18:59 06:59 18:59 Intake Total 990 1610 200 Balance 990 1610 200 Weight 83.915 kg Intake: Intake, IV Titration 450 900 Amount Levofloxacin 750Mg-D5w 150 Pmx 750 mg In Dextrose/ Water 1 150ml.bag @ 100 mls/hr IVPB Q48H [facility] Rx#: [id number] Sodium Chloride 0.9% 1, 300 900 000 ml @ 75 mls/hr IV . [id number] [facility] Rx#:[id number] Oral 540 710 200 Blood Product 0 Unit 0 Other: # Voids 1 # Bowel Movements 1 - Labs CBC & Chem 7: 12/28/23 04:02 12/28/23 04:02 Labs: Abnormal Lab Results - Last 24 Hours (Table) 12/27/23 12/27/23 12/28/23 Range/Units 17:12 20:05 04:02 WBC 1.41 A* (4.50-10.00) X 10*3/uL RBC 1.57 L (4.10-5.60) X 10*6/uL Hgb 6.2 A* (12.0-17.0) g/dL Hct 18.8 A* (37.2-50.0) % MCV 119.7 H (80.0-97.0) FL MCH 39.5 H (27.0-32.0) pg RDW 16.0 H (11.5-14.5) % Plt Count 72 L (140-440) X 10*3/uL Neutrophils # 0.69 L (1.80-7.70) X 10*3/uL Lymphocytes # 0.53 L (0.90-5.00) X 10*3/uL Monocytes # 0.17 L (0.20-1.00) X 10*3/uL Eosinophils # 0 L (0.04-0.35) X 10*3/uL Toxic Granulation 2+ A Macrocytosis (manual) 3+ A Sodium (135-145) mmol/L Chloride (96-109) mmol/L Carbon Dioxide (21.6-31.8) mmol/L BUN (9.0-27.0) mg/dL Creatinine (0.6-1.5) mg/dL Est GFR (CKD-EPI) (>=60) BUN/Creatinine Ratio (12.00-20.00) Ratio Glucose (70-110) mg/dL POC Glucose (mg/dL) 181 H 191 H (70-110) mg/dL Calcium (8.7-10.3) mg/dL AST (13-35) U/L Alkaline Phosphatase (41-126) U/L Total Protein (6.2-8.2) g/dL Albumin (3.8-4.9) g/dL Albumin/Globulin Ratio (1.60-3.17) Ratio Urine Protein (Negative) Crossmatch 12/28/23 12/28/23 12/28/23 Range/Units 04:02 11:49 11:49 WBC (4.50-10.00) X 10*3/uL RBC (4.10-5.60) X 10*6/uL Hgb (12.0-17.0) g/dL Hct (37.2-50.0) % MCV (80.0-97.0) FL MCH (27.0-32.0) pg RDW (11.5-14.5) % Plt Count (140-440) X 10*3/uL Neutrophils # (1.80-7.70) X 10*3/uL Lymphocytes # (0.90-5.00) X 10*3/uL Monocytes # (0.20-1.00) X 10*3/uL Eosinophils # (0.04-0.35) X 10*3/uL Toxic Granulation Macrocytosis (manual) Sodium 132 L (135-145) mmol/L Chloride 110 H (96-109) mmol/L Carbon Dioxide 12.5 L (21.6-31.8) mmol/L BUN 60.6 H (9.0-27.0) mg/dL Creatinine 2.3 H (0.6-1.5) mg/dL Est GFR (CKD-EPI) 27 L (>=60) BUN/Creatinine Ratio 26.35 H (12.00-20.00) Ratio Glucose 123 H (70-110) mg/dL POC Glucose (mg/dL) 160 H (70-110) mg/dL Calcium 7.4 L (8.7-10.3) mg/dL AST 40 H (13-35) U/L Alkaline Phosphatase 429 H (41-126) U/L Total Protein 4.9 L (6.2-8.2) g/dL Albumin 2.8 L (3.8-4.9) g/dL Albumin/Globulin Ratio 1.33 L (1.60-3.17) Ratio Urine Protein (Negative) Crossmatch See Detail 12/28/23 Range/Units 12:51 WBC (4.50-10.00) X 10*3/uL RBC (4.10-5.60) X 10*6/uL Hgb (12.0-17.0) g/dL Hct (37.2-50.0) % MCV (80.0-97.0) FL MCH (27.0-32.0) pg RDW (11.5-14.5) % Plt Count (140-440) X 10*3/uL Neutrophils # (1.80-7.70) X 10*3/uL Lymphocytes # (0.90-5.00) X 10*3/uL Monocytes # (0.20-1.00) X 10*3/uL Eosinophils # (0.04-0.35) X 10*3/uL Toxic Granulation Macrocytosis (manual) Sodium (135-145) mmol/L Chloride (96-109) mmol/L Carbon Dioxide (21.6-31.8) mmol/L BUN (9.0-27.0) mg/dL Creatinine (0.6-1.5) mg/dL Est GFR (CKD-EPI) (>=60) BUN/Creatinine Ratio (12.00-20.00) Ratio Glucose (70-110) mg/dL POC Glucose (mg/dL) (70-110) mg/dL Calcium (8.7-10.3) mg/dL AST (13-35) U/L Alkaline Phosphatase (41-126) U/L Total Protein (6.2-8.2) g/dL Albumin (3.8-4.9) g/dL Albumin/Globulin Ratio (1.60-3.17) Ratio Urine Protein Trace H (Negative) Crossmatch Microbiology - Last 24 Hours (Table) 12/27/23 14:19 Gram Stain - Preliminary Leg - Left
--- NOTE | 2023-12-28 15:48 | US ---
EXAMINATION TYPE: US kidneys/renal and bladder DATE OF EXAM: 12/28/2023 Exam done portable COMPARISON: NONE CLINICAL INDICATION: Male, 83 years old with history of VLAD; EXAM MEASUREMENTS: Right Kidney: 10.7 x 4.5 x 5.6 cm Left Kidney: 9.7 x 5.2 x 5.6 cm Right Kidney: No hydronephrosis or masses seen Left Kidney: No hydronephrosis or masses seen Bladder: wnl Ascites RUQ and pelvis There is no evidence for hydronephrosis at this point in time. No nephrolithiasis is seen. No juan s are identified. The urinary bladder is anechoic. Bilateral ureteral jets are seen. IMPRESSION: 1. No evidence of obstructive uropathy. 2. Small volume intra-abdominal ascites [facility] Yesika Granados, , 12/28/2023 3:46 PM
[2023-12-28 17:18] LABS: Glucose,Whole Blood 223 mg/dL (70-110)
--- NOTE | 2023-12-28 20:25 | P.CONS ---
History of Present Illness - Reason for Consult Consult date: 12/28/23 hx MDS Requesting physician: Lonny Grossman - Chief Complaint leg wound, cellulitis - History of Present Illness Patient is a 83 year old male, with a history of MDS. He is a patient of Dr. Hutchinson. He was initially referred for evaluation of pancytopenia discovered on routine CBC done during annual physical. Bone marrow biopsy was consistent with MDS. Has been on treatment with Dacogen, last treatment 11/27, with plan to hold treatment for 6 weeks. Patient presented to emergency room with complaints of right lower extremity swelling and redness. Patient states he cut his leg approximately 2 weeks ago and has been having progressing erythema and swelling since. Upon admission bilateral lower lower extremity Doppler negative for DVT. Patient has been started on daptomycin for treatment of cellulitis. Infectious disease consulted. Wound cultures pending. On admit CBC showing WBC 1.8, ANC 1.1, hemoglobin 7.4, platelets 109,000. Patient also noted to have VLAD with creatinine 2.27, GFR 26. Today WBC 1.4, ANC 0.69, hemoglobin 6.2, platelets 72,000. Pt afebrile. Review of Systems 10 point ROS is negative except as stated in the HPI Past Medical History Past Medical History: Cancer, Diabetes Mellitus, Eye Disorder, Hyperlipidemia, Hypertension, Osteoarthritis (OA), Thyroid Disorder Additional Past Medical History / Comment(s): Hx gallstone, hx sepsis from liver infection r/t gallbladder problems; Skin cancer. BPH. Macular degeneration bilat eyes. Anemia, low WBC. bone marrow cancer, last chemo 09/18/22, bruises easily History of Any Multi-Drug Resistant Organisms: None Reported Past Surgical History: Back Surgery, Cholecystectomy, Orthopedic Surgery Additional Past Surgical History / Comment(s): ERCP w/ stone removal, tamiko shoulder, lumbar 4th-5th-6th back surgery. Colonoscopy, skin cancer removed Past Anesthesia/Blood Transfusion Reactions: Motion Sickness Additional Past Anesthesia/Blood Transfusion Reaction / Comm: Transfused 1 unit pRBC October 2021 no issues Past Psychological History: No Psychological Hx Reported Smoking Status: Never smoker Past Alcohol Use History: None Reported Past Drug Use History: None Reported - Past Family History Father Family Medical History: Cancer, Respiratory Disorder Additional Family Medical History / Comment(s): lung cancer Medications and Allergies Home Medications Medication Instructions Recorded Confirmed Type Levothyroxine Sodium [Synthroid] 50 mcg PO DAILY 03/29/14 12/27/23 History lisinopriL 40 mg PO HS 05/12/16 12/27/23 History Ferrous Sulfate [Feosol] 325 mg PO DAILY 01/20/20 12/27/23 History Lovastatin [Mevacor] 40 mg PO HS 01/20/20 12/27/23 History hydroCHLOROthiazide 25 mg PO DAILY 01/20/20 12/27/23 History amLODIPine [Norvasc] 10 mg PO DAILY 10/05/21 12/27/23 History Acyclovir [Zovirax] 400 mg PO DAILY 12/27/23 12/27/23 History Diclofenac Sodium [Voltaren 2 gm TOPICAL QID 12/27/23 12/27/23 History Arthritis Pain 1% Gel] Furosemide [Lasix] 20 mg PO DAILY 12/27/23 12/27/23 History Ibuprofen [Motrin] 800 mg PO TID PRN 12/27/23 12/27/23 History Insulin Glargine,Hum.rec.anlog 20 unit SQ HS 12/27/23 12/27/23 History [Basaglar Kwikpen U-100] Insulin Glargine,Hum.rec.anlog See Protocol SQ DAILY 12/27/23 12/27/23 History [Basaglar Kwikpen U-100] metFORMIN HCL 1,000 mg PO BID 12/27/23 12/27/23 History Allergies Allergy/AdvReac Type Severity Reaction Status Date / Time bacitracin Allergy Rash/Hives Verified 12/27/23 11:53 [From Neosporin ([id number])] bacitracin zinc Allergy Rash/Hives Verified 12/27/23 11:53 [From Neosporin ([id number])] neomycin sulfate Allergy Rash/Hives Verified 12/27/23 11:53 [From Neosporin ([id number])] polymyxin B Allergy Rash/Hives Verified 12/27/23 11:53 [From Neosporin ([id number])] Physical Exam Vitals: Vital Signs Temp Pulse Pulse Resp BP BP BP 12/28/23 07:06 97.5 F L 70 16 119/53 12/28/23 02:01 103/53 12/28/23 01:53 97.7 F 74 16 101/44 12/27/23 20:00 97.6 F 81 16 109/58 12/27/23 12:31 97.7 F 88 16 131/58 12/27/23 12:22 70 18 119/80 12/27/23 09:49 97.0 F L 80 18 126/54 Pulse Ox 12/28/23 07:06 99 12/28/23 02:01 12/28/23 01:53 100 12/27/23 20:00 99 12/27/23 12:31 100 12/27/23 12:22 97 12/27/23 09:49 99 Intake and Output 12/27/23 12/28/23 12/28/23 22:59 06:59 14:59 Intake Total 1110 1490 Balance 1110 1490 Intake: Intake, IV Titration 450 900 Amount Levofloxacin 750Mg-D5w 150 Pmx 750 mg In Dextrose/ Water 1 150ml.bag @ 100 mls/hr IVPB Q48H [facility] Rx#: [id number] Sodium Chloride 0.9% 1, 300 900 000 ml @ 75 mls/hr IV . [id number] [facility] Rx#:[id number] Oral 660 590 Other: # Voids 1 # Bowel Movements 1 - Constitutional General appearance: average body habitus, no acute distress - EENT Eyes: anicteric sclerae, EOMI - Respiratory breathing is even and unlabored - Cardiovascular well perfused - Gastrointestinal General gastrointestinal: soft, no tenderness - Integumentary erythema and edema RLE - Neurologic Neurologic: CNII-XII intact - Psychiatric Psychiatric: A&O x's 3 Results CBC & Chem 7: 12/28/23 04:02 12/28/23 04:02 Labs: Abnormal Lab Results - Last 24 Hours (Table) 12/27/23 12/27/23 12/27/23 Range/Units 09:57 10:20 10:20 WBC 1.8 L (3.8-10.6) k/uL RBC 1.94 L (4.30-5.90) m/uL Hgb 7.4 L (13.0-17.5) gm/dL Hct 22.8 L (39.0-53.0) % MCV 118.0 H (80.0-100.0) fL MCH 38.5 H (25.0-35.0) pg RDW 16.7 H (11.5-15.5) % Plt Count 109 L (150-450) k/uL Neutrophils # (Manual) 1.10 L (1.3-7.7) k/uL Lymphocytes # (Manual) 0.59 L (1.0-4.8) k/uL Macrocytosis Marked A Sodium 132 L (137-145) mmol/L Chloride 110 H (98-107) mmol/L Carbon Dioxide 12 L (22-30) mmol/L BUN 56 H (9-20) mg/dL Creatinine 2.27 H (0.66-1.25) mg/dL Glucose 115 H (74-99) mg/dL POC Glucose (mg/dL) 127 H (70-110) mg/dL Calcium 8.0 L (8.4-10.2) mg/dL Alkaline Phosphatase 448 H (38-126) U/L Total Protein 5.7 L (6.3-8.2) g/dL Albumin 2.8 L (3.5-5.0) g/dL 12/27/23 12/27/23 Range/Units 17:12 20:05 WBC (3.8-10.6) k/uL RBC (4.30-5.90) m/uL Hgb (13.0-17.5) gm/dL Hct (39.0-53.0) % MCV (80.0-100.0) fL MCH (25.0-35.0) pg RDW (11.5-15.5) % Plt Count (150-450) k/uL Neutrophils # (Manual) (1.3-7.7) k/uL Lymphocytes # (Manual) (1.0-4.8) k/uL Macrocytosis Sodium (137-145) mmol/L Chloride (98-107) mmol/L Carbon Dioxide (22-30) mmol/L BUN (9-20) mg/dL Creatinine (0.66-1.25) mg/dL Glucose (74-99) mg/dL POC Glucose (mg/dL) 181 H 191 H (70-110) mg/dL Calcium (8.4-10.2) mg/dL Alkaline Phosphatase (38-126) U/L Total Protein (6.3-8.2) g/dL Albumin (3.5-5.0) g/dL Venous US: report reviewed Assessment and Plan (1) MDS (myelodysplastic syndrome) Current Visit: Yes Status: Acute Priority: High Code(s): D46.9 - MYELODYSPLASTIC SYNDROME, UNSPECIFIED SNOMED Code(s): 490848028 (2) Acute kidney injury Current Visit: Yes Status: Acute Priority: High Code(s): N17.9 - ACUTE KIDNEY FAILURE, UNSPECIFIED SNOMED Code(s): 91499909 (3) Cellulitis Current Visit: Yes Status: Acute Priority: High Code(s): L03.90 - CELLULITIS, UNSPECIFIED SNOMED Code(s): 083668637 Plan: Cellulitis Presented to emergency room with complaints of right lower extremity swelling and redness. Patient states he cut his leg approximately 2 weeks ago and has been having progressing erythema and swelling since. -Upon admission bilateral lower lower extremity Doppler negative for DVT. -Patient has been started on daptomycin for treatment of cellulitis -Wound cultures pending -Infectious disease following MDS: -History MDS. Follows with Dr. Hutchinson -On treatment with Dacogen, last tx on 11/28/23 -Today WBC 1.4, ANC 0.69, hemoglobin 6.2, platelets 72,000. 1 unit PRBCs ordered -No G-CSF at this time. Continue to monitor white counts, temperature -Continue to monitor CBC. Transfuse for hgb less than 7 or if symptomatic
[2023-12-28 20:26] LABS: Glucose,Whole Blood 236 mg/dL (70-110)
[2023-12-29 07:41] LABS: Glucose,Whole Blood 97 mg/dL (70-110)
--- NOTE | 2023-12-29 08:38 | P.PN ---
Subjective Patient is seen in follow-up for acute kidney injury. Creatinine 2.3 yesterday. Required straight catheterization twice however with only 100 cc urine obtained from catheterization. Has been voiding on his own. Currently receiving IV fluids. Denies any active bleeding. Vital signs are stable. General: No acute distress. HEENT: Head exam is unremarkable. LUNGS: No audible rhonchi or wheezes. HEART: Rate and Rhythm are regular. ABDOMEN: Nontender. EXTREMITITES: 2+ edema. No drainage. Objective - Vital Signs Vital signs: Vital Signs Temp 97.9 F 12/29/23 02:00 Pulse 74 12/29/23 02:00 Resp 14 12/29/23 02:00 BP 118/66 12/29/23 02:00 Pulse Ox 99 12/29/23 02:00 FiO2 Intake & Output 12/28/23 12/29/23 12/29/23 18:59 06:59 18:59 Intake Total 2270 Output Total 550 300 Balance 1720 -300 Intake: Intake, IV Titration 800 Amount DAPTOmycin 350 mg In 50 Sodium Chloride 0.9% 50 ml @ 100 mls/hr IVPB Q24HR [facility] Rx#:[id number] Sodium Chloride 0.9% 1, 750 000 ml @ 75 mls/hr IV . [id number] [facility] Rx#:[id number] Oral 1160 Blood Product 310 Rc Irr As1 Unit 310 [id number] Output: Urine 550 150 Straight 100 150 Post Void Residual 150 Other: Voiding Method Toilet # Voids 2 - Labs CBC & Chem 7: 12/28/23 04:02 12/28/23 04:02 Labs: Abnormal Lab Results - Last 24 Hours (Table) 12/28/23 12/28/23 12/28/23 Range/Units 04:02 04:02 11:49 WBC 1.41 A* (4.50-10.00) X 10*3/uL RBC 1.57 L (4.10-5.60) X 10*6/uL Hgb 6.2 A* (12.0-17.0) g/dL Hct 18.8 A* (37.2-50.0) % MCV 119.7 H (80.0-97.0) FL MCH 39.5 H (27.0-32.0) pg RDW 16.0 H (11.5-14.5) % Plt Count 72 L (140-440) X 10*3/uL Neutrophils # 0.69 L (1.80-7.70) X 10*3/uL Lymphocytes # 0.53 L (0.90-5.00) X 10*3/uL Monocytes # 0.17 L (0.20-1.00) X 10*3/uL Eosinophils # 0 L (0.04-0.35) X 10*3/uL Toxic Granulation 2+ A Macrocytosis (manual) 3+ A Sodium 132 L (135-145) mmol/L Chloride 110 H (96-109) mmol/L Carbon Dioxide 12.5 L (21.6-31.8) mmol/L BUN 60.6 H (9.0-27.0) mg/dL Creatinine 2.3 H (0.6-1.5) mg/dL Est GFR (CKD-EPI) 27 L (>=60) BUN/Creatinine Ratio 26.35 H (12.00-20.00) Ratio Glucose 123 H (70-110) mg/dL POC Glucose (mg/dL) (70-110) mg/dL Calcium 7.4 L (8.7-10.3) mg/dL AST 40 H (13-35) U/L Alkaline Phosphatase 429 H (41-126) U/L Total Protein 4.9 L (6.2-8.2) g/dL Albumin 2.8 L (3.8-4.9) g/dL Albumin/Globulin Ratio 1.33 L (1.60-3.17) Ratio Urine Protein (Negative) Crossmatch See Detail 12/28/23 12/28/23 12/28/23 Range/Units 11:49 12:51 17:16 WBC (4.50-10.00) X 10*3/uL RBC (4.10-5.60) X 10*6/uL Hgb (12.0-17.0) g/dL Hct (37.2-50.0) % MCV (80.0-97.0) FL MCH (27.0-32.0) pg RDW (11.5-14.5) % Plt Count (140-440) X 10*3/uL Neutrophils # (1.80-7.70) X 10*3/uL Lymphocytes # (0.90-5.00) X 10*3/uL Monocytes # (0.20-1.00) X 10*3/uL Eosinophils # (0.04-0.35) X 10*3/uL Toxic Granulation Macrocytosis (manual) Sodium (135-145) mmol/L Chloride (96-109) mmol/L Carbon Dioxide (21.6-31.8) mmol/L BUN (9.0-27.0) mg/dL Creatinine (0.6-1.5) mg/dL Est GFR (CKD-EPI) (>=60) BUN/Creatinine Ratio (12.00-20.00) Ratio Glucose (70-110) mg/dL POC Glucose (mg/dL) 160 H 223 H (70-110) mg/dL Calcium (8.7-10.3) mg/dL AST (13-35) U/L Alkaline Phosphatase (41-126) U/L Total Protein (6.2-8.2) g/dL Albumin (3.8-4.9) g/dL Albumin/Globulin Ratio (1.60-3.17) Ratio Urine Protein Trace H (Negative) Crossmatch 12/28/23 Range/Units 20:23 WBC (4.50-10.00) X 10*3/uL RBC (4.10-5.60) X 10*6/uL Hgb (12.0-17.0) g/dL Hct (37.2-50.0) % MCV (80.0-97.0) FL MCH (27.0-32.0) pg RDW (11.5-14.5) % Plt Count (140-440) X 10*3/uL Neutrophils # (1.80-7.70) X 10*3/uL Lymphocytes # (0.90-5.00) X 10*3/uL Monocytes # (0.20-1.00) X 10*3/uL Eosinophils # (0.04-0.35) X 10*3/uL Toxic Granulation Macrocytosis (manual) Sodium (135-145) mmol/L Chloride (96-109) mmol/L Carbon Dioxide (21.6-31.8) mmol/L BUN (9.0-27.0) mg/dL Creatinine (0.6-1.5) mg/dL Est GFR (CKD-EPI) (>=60) BUN/Creatinine Ratio (12.00-20.00) Ratio Glucose (70-110) mg/dL POC Glucose (mg/dL) 236 H (70-110) mg/dL Calcium (8.7-10.3) mg/dL AST (13-35) U/L Alkaline Phosphatase (41-126) U/L Total Protein (6.2-8.2) g/dL Albumin (3.8-4.9) g/dL Albumin/Globulin Ratio (1.60-3.17) Ratio Urine Protein (Negative) Crossmatch Microbiology - Last 24 Hours (Table) 12/27/23 14:19 Gram Stain - Preliminary Leg - Left Wound Culture - Preliminary Presumptive Staph aureus 12/27/23 10:20 Blood Culture - Preliminary Blood Assessment and Plan Plan: Assessment: 1. Acute kidney injury secondary to ATN secondary to anemia. Creatinine 1.1 in May 2023. 2.3 today. No hydronephrosis noted on kidney ultrasound. UA fairly benign. 2. Lower extremity cellulitis on antibiotics. Wound culture positive for staph. 3. MDS maintained on chemotherapy. Status post blood transfusion this admission. Oncology following. 4. Benign hypertension. 5. Diabetes mellitus. 6. Lower extremity edema. Plan: Ulrich catheter for strict I's and O's. Check abdominal ultrasound to assess for ascites. Lasix 20 mg IV once today. Decrease rate of IV fluids. Continue to monitor renal function and urine output. Decrease dose of amlodipine and hold for systolic blood pressure less than 120.
[2023-12-29 09:02] LABS: Blood Urea Nitrogen 54.6 mg/dL (9.0-27.0); Chloride 111 mmol/L (96-109); Glucose 109 mg/dL (70-110); Potassium 4.9 mmol/L (3.5-5.5); Sodium 132 mmol/L (135-145)
[2023-12-29 09:03] LABS: Calcium 7.4 mg/dL (8.7-10.3); Carbon Dioxide 12.6 mmol/L (21.6-31.8)
[2023-12-29 09:32] LABS: Basophils # (A) 0 X 10*3/uL (0.00-0.10); Basophils % (A) 0 %; Elliptocytes 2+; Eosinophils # (A) 0.01 X 10*3/uL (0.04-0.35); Eosinophils % (A) 0.7 %; HCT 20.7 % (37.2-50.0); HGB 6.8 g/dL (12.0-17.0); Immature Platelet Fraction 2.1 % (1.1-6.1); Lymphocytes # (A) 0.54 X 10*3/uL (0.90-5.00); Lymphocytes % (A) 37.2 %; MCHC 32.9 g/dL (32.0-37.0); MCV 109.5 FL (80.0-97.0); Macrocytosis (M) 3+; Monocytes # (A) 0.22 X 10*3/uL (0.20-1.00); Monocytes % (A) 15.2 %; NRBC Per 100 WBC 0 X 10*3/uL (0.00-0.01); Neutrophils # (A) 0.67 X 10*3/uL (1.80-7.70); Neutrophils % (A) 46.2 %; Platelet Count 73 X 10*3/uL (140-440); RBC 1.89 X 10*6/uL (4.10-5.60); WBC 1.45 X 10*3/uL (4.50-10.00)
[2023-12-29] MEDS: amLODIPine 5 MG TAB PO SCH (09:34)
[2023-12-29] MEDS: SODIUM BICARB 8.4% 50 ML SYR (1 MEQ/ML) IV STA (12:15)
[2023-12-29] MEDS: FUROSEMIDE 10 MG/ML 2 ML VIAL IV ONE (12:15)
[2023-12-29 12:21] LABS: Glucose,Whole Blood 183 mg/dL (70-110)
[2023-12-29] MEDS: DESMOPRESSIN ACETATE 24 MCG in SODIUM CHLORIDE 0.9% 50 ML IVPB ONE (12:23)
[2023-12-29] MEDS: DEXTROSE 5% IN WATER 1,000 ML with SODIUM BICARB (1 MEQ/ML) 150 ML IV SCH (13:32)
--- NOTE | 2023-12-29 14:57 | P.PN ---
Subjective Progress Note Date: 12/29/23 Interval History: 83-year-old male patient with past medical history significant for MDS currently on chemotherapy, diabetes mellitus, hypertension, hyperlipidemia, thyroid disorder, history of BPH, history of macular degeneration who presented to ED with a complaint of right lower extremity swelling, redness, tenderness and pain for 2 weeks. Patient denied any fever or chills. Patient stated that he is unsure but he might have bumped his leg while getting out of the car about 2 weeks ago and started to notice more swelling, redness and pain in the right leg since then. Patient also complaining of loose stools and abdominal distention, denied any abdominal pain. Patient stated that he has chronic lower extremity swelling and takes Lasix for that but right leg has been more swollen and red for last 2 weeks. Patient denied any headache, sore throat, productive cough, chest pain, palpitation, shortness of breath, nausea vomiting abdominal pain dysuria urgency frequency weakness or numbness of the extremities. In the ED patient was afebrile, heart rate 88, respiratory rate 16, blood pressu re 131/58, saturating 100% on room air. WBC is 1.8, hemoglobin 7.4, platelet 109. Sodium 132, potassium 4.6, BUN 56, creatinine 2.27, lactic acid 1.9. 12/28/2023--patient was seen and examined today. Patient's hemoglobin dropped to 6.2 today, WBCs 1.4, platelets 72. 1 unit of irradiated packed RBCs ordered. BUN is 60, creatinine 2.3. Nephrology consulted and following. Hematology following. Patient currently on daptomycin per infectious disease. Ultrasound venous was negative for DVT. 12/29/2023--patient was seen and examined today. Remained afebrile, vital stable. WBCs 1.45, hemoglobin 6.8, platelets 73. 1 unit of elevated packed RBCs ordered per hematology. Creatinine trended down to 2.0 today as compared to 2.3. Nephrology following, required straight cath twice, creatinine is 2.3. Patient remains on daptomycin for lower extremity cellulitis, pulmonary following. Given 1 dose of IV Lasix per nephrology. Assessment and plan: Right lower extremity cellulitis: Presented with right lower extremity swelling, warmth, pain, tenderness for 2 weeks Ultrasound venous --negative for DVT. Antibiotics: On daptomycin ID consulted--appreciate recs. Blood cultures Diarrhea: Gentle IV fluids Stool culture, C. difficile done. Diabetes mellitus: Accu-Cheks, diabetic diet Hypoglycemia protocol Lantus, sliding scale insulin Hypothyroidism: Synthroid MDS: Pancytopenia No sign or symptom of active bleed Monitor CBC Transfuse for hemoglobin less than 7.0 Hematology consulted Status post 2 unit of packed RBCsirradiated on 12/27 and 12/28 due to hemoglobin less than 7. VLAD on CKD: Hold Lasix, lisinopril Gentle IV fluids Monitor renal function Avoid nephrotoxin Nephrology consultedrecommended check CPK, monitor I&O's, bladder scan, renal ultrasound, UA. Ultrasound renal negative for hydronephrosis, small amount of ascites. DVT prophylaxis SCD Monitor vital signs and labs Labs and medication were reviewed. Continue same treatment. Further recommendations as per clinical course of the patient PHYSICAL EXAMINATION: GENERAL: The patient is A&O x3, NAD HEENT: EOMI, Sclerae anicteric, Moist Mucous membranes Neck: Supple, Non tender, No JVD PULMONARY: Equal breath souds B/L, No wheezing, No crackles. CARDIOVASCULAR: S1, S2 present. No murmurs, rubs, or gallops. ABDOMEN: Soft, nontender, distended, normoactive bowel sounds. No guarding or rebound tenderness. MUSCULOSKELETAL: Bilateral edema, right lower extremity more edematous, warmth, tenderness, erythema. EXTREMITIES: No cyanosis, clubbing, or pedal edema. NEUROLOGICAL: CN 2-12 grossly intact. No FND REVIEW OF SYSTEMS: CONSTITUTIONAL: No fever or chills. CARDIOVASCULAR: No chest pain, palpitations or syncope. PULMONARY: No shortness of breath, no cough, sore throat. GASTROINTESTINAL: No nausea, vomiting, diarrhea, abdominal pain. : No Dysuria, urgency, frequency. Extremities: No edema. NEUROLOGICAL: No headaches, no weakness, or numbness Dictation was produced using [employer] dictation software. please excuse any grammatical, word or spelling errors. Objective - Vital Signs Vital signs: Vital Signs Temp 97.6 F 12/29/23 12:10 Pulse 82 12/29/23 12:10 Resp 17 12/29/23 12:10 BP 130/54 12/29/23 12:10 Pulse Ox 99 12/29/23 12:10 FiO2 Intake & Output 12/28/23 12/29/23 12/29/23 18:59 06:59 18:59 Intake Total 2270 240 Output Total 550 300 Balance 1720 -300 240 Intake: Intake, IV Titration 800 Amount DAPTOmycin 350 mg In 50 Sodium Chloride 0.9% 50 ml @ 100 mls/hr IVPB Q24HR [facility] Rx#:[id number] Sodium Chloride 0.9% 1, 750 000 ml @ 75 mls/hr IV . [id number] [facility] Rx#:[id number] Oral 1160 240 Blood Product 310 Rc Irr As1 Unit 310 [id number] Output: Urine 550 150 Straight 100 150 Post Void Residual 150 Other: Voiding Method Toilet Toilet # Voids 2 - Labs CBC & Chem 7: 12/29/23 04:27 12/29/23 04:27 Labs: Abnormal Lab Results - Last 24 Hours (Table) 12/28/23 12/28/23 12/28/23 Range/Units 11:49 17:16 20:23 WBC (4.50-10.00) X 10*3/uL RBC (4.10-5.60) X 10*6/uL Hgb (12.0-17.0) g/dL Hct (37.2-50.0) % MCV (80.0-97.0) FL MCH (27.0-32.0) pg RDW (11.5-14.5) % Plt Count (140-440) X 10*3/uL Neutrophils # (1.80-7.70) X 10*3/uL Lymphocytes # (0.90-5.00) X 10*3/uL Eosinophils # (0.04-0.35) X 10*3/uL Macrocytosis (manual) Elliptocytes Sodium (135-145) mmol/L Chloride (96-109) mmol/L Carbon Dioxide (21.6-31.8) mmol/L BUN (9.0-27.0) mg/dL Creatinine (0.6-1.5) mg/dL Est GFR (CKD-EPI) (>=60) BUN/Creatinine Ratio (12.00-20.00) Ratio POC Glucose (mg/dL) 223 H 236 H (70-110) mg/dL Calcium (8.7-10.3) mg/dL Crossmatch See Detail 12/29/23 12/29/23 12/29/23 Range/Units 04:27 04:27 12:18 WBC 1.45 A* (4.50-10.00) X 10*3/uL RBC 1.89 L (4.10-5.60) X 10*6/uL Hgb 6.8 A* (12.0-17.0) g/dL Hct 20.7 L (37.2-50.0) % MCV 109.5 H (80.0-97.0) FL MCH 36.0 H (27.0-32.0) pg RDW 21.0 H (11.5-14.5) % Plt Count 73 L (140-440) X 10*3/uL Neutrophils # 0.67 L (1.80-7.70) X 10*3/uL Lymphocytes # 0.54 L (0.90-5.00) X 10*3/uL Eosinophils # 0.01 L (0.04-0.35) X 10*3/uL Macrocytosis (manual) 3+ A Elliptocytes 2+ A Sodium 132 L (135-145) mmol/L Chloride 111 H (96-109) mmol/L Carbon Dioxide 12.6 L (21.6-31.8) mmol/L BUN 54.6 H (9.0-27.0) mg/dL Creatinine 2.0 H (0.6-1.5) mg/dL Est GFR (CKD-EPI) 32 L (>=60) BUN/Creatinine Ratio 27.30 H (12.00-20.00) Ratio POC Glucose (mg/dL) 183 H (70-110) mg/dL Calcium 7.4 L (8.7-10.3) mg/dL Crossmatch Microbiology - Last 24 Hours (Table) 12/27/23 21:30 Stool Culture - Preliminary Stool 12/27/23 14:19 Gram Stain - Preliminary Leg - Left Wound Culture - Preliminary Presumptive Staph aureus 12/27/23 10:20 Blood Culture - Preliminary Blood
--- NOTE | 2023-12-29 15:34 | P.PN ---
Subjective Progress Note Date: 12/29/23 Principal diagnosis: MDS, cellulitis In f/u today pt reports his appetite is improving, he does have trouble putting any weight on the RLE (painful), no recent fevers, cough, SOB, he did have a BM. The rt leg swelling and redness is stable. Objective - Vital Signs Vital signs: Vital Signs Temp 98.1 F 12/29/23 15:14 Pulse 79 12/29/23 15:14 Resp 14 12/29/23 15:14 BP 113/56 12/29/23 15:14 Pulse Ox 99 12/29/23 12:10 FiO2 Intake & Output 12/28/23 12/29/23 12/29/23 18:59 06:59 18:59 Intake Total 2270 240 Output Total 550 300 Balance 1720 -300 240 Intake: Intake, IV Titration 800 Amount DAPTOmycin 350 mg In 50 Sodium Chloride 0.9% 50 ml @ 100 mls/hr IVPB Q24HR [facility] Rx#:[id number] Sodium Chloride 0.9% 1, 750 000 ml @ 75 mls/hr IV . [id number] [facility] Rx#:[id number] Oral 1160 240 Blood Product 310 0 Unit 0 Rc Irr As1 Unit 310 [id number] Output: Urine 550 150 Straight 100 150 Post Void Residual 150 Other: Voiding Method Toilet Toilet # Voids 2 - Constitutional General appearance: Present: average body habitus, cooperative, no acute distress - EENT Eyes: Present: anicteric sclerae, EOMI ENT: Present: normal oropharynx - Respiratory Respiratory: bilateral: CTA - Cardiovascular Rhythm: regular Heart sounds: normal: S1, S2 - Peripheral edema leg Peripheral Edema: right: 1+, left: Trace - Gastrointestinal General gastrointestinal: Present: normal bowel sounds, soft - Integumentary Integumentary Comment(s): RLE redness, thickened skin - Neurologic Neurologic: Present: CNII-XII intact - Psychiatric Psychiatric: Present: A&O x's 3, appropriate affect, intact judgment & insight - Labs CBC & Chem 7: 12/29/23 04:27 12/29/23 04:27 Labs: Abnormal Lab Results - Last 24 Hours (Table) 12/28/23 12/28/23 12/28/23 Range/Units 11:49 17:16 20:23 WBC (4.50-10.00) X 10*3/uL RBC (4.10-5.60) X 10*6/uL Hgb (12.0-17.0) g/dL Hct (37.2-50.0) % MCV (80.0-97.0) FL MCH (27.0-32.0) pg RDW (11.5-14.5) % Plt Count (140-440) X 10*3/uL Neutrophils # (1.80-7.70) X 10*3/uL Lymphocytes # (0.90-5.00) X 10*3/uL Eosinophils # (0.04-0.35) X 10*3/uL Macrocytosis (manual) Elliptocytes Sodium (135-145) mmol/L Chloride (96-109) mmol/L Carbon Dioxide (21.6-31.8) mmol/L BUN (9.0-27.0) mg/dL Creatinine (0.6-1.5) mg/dL Est GFR (CKD-EPI) (>=60) BUN/Creatinine Ratio (12.00-20.00) Ratio POC Glucose (mg/dL) 223 H 236 H (70-110) mg/dL Calcium (8.7-10.3) mg/dL Crossmatch See Detail 12/29/23 12/29/23 12/29/23 Range/Units 04:27 04:27 12:18 WBC 1.45 A* (4.50-10.00) X 10*3/uL RBC 1.89 L (4.10-5.60) X 10*6/uL Hgb 6.8 A* (12.0-17.0) g/dL Hct 20.7 L (37.2-50.0) % MCV 109.5 H (80.0-97.0) FL MCH 36.0 H (27.0-32.0) pg RDW 21.0 H (11.5-14.5) % Plt Count 73 L (140-440) X 10*3/uL Neutrophils # 0.67 L (1.80-7.70) X 10*3/uL Lymphocytes # 0.54 L (0.90-5.00) X 10*3/uL Eosinophils # 0.01 L (0.04-0.35) X 10*3/uL Macrocytosis (manual) 3+ A Elliptocytes 2+ A Sodium 132 L (135-145) mmol/L Chloride 111 H (96-109) mmol/L Carbon Dioxide 12.6 L (21.6-31.8) mmol/L BUN 54.6 H (9.0-27.0) mg/dL Creatinine 2.0 H (0.6-1.5) mg/dL Est GFR (CKD-EPI) 32 L (>=60) BUN/Creatinine Ratio 27.30 H (12.00-20.00) Ratio POC Glucose (mg/dL) 183 H (70-110) mg/dL Calcium 7.4 L (8.7-10.3) mg/dL Crossmatch Microbiology - Last 24 Hours (Table) 12/27/23 21:30 Stool Culture - Preliminary Stool 12/27/23 14:19 Gram Stain - Preliminary Leg - Left Wound Culture - Preliminary Presumptive Staph aureus 12/27/23 10:20 Blood Culture - Preliminary Blood Assessment and Plan (1) Cellulitis of right leg Current Visit: Yes Status: Acute Priority: High Code(s): L03.115 - CELLULITIS OF RIGHT LOWER LIMB SNOMED Code(s): 37302971595119038 (2) MDS (myelodysplastic syndrome) Current Visit: No Status: Chronic Priority: Medium Code(s): D46.9 - MYELODYSPLASTIC SYNDROME, UNSPECIFIED SNOMED Code(s): 814485920 Plan: RLE cellulitis -Pt cut his leg approximately 2 weeks ago, progressive symptoms. -BLE Doppler negative for DVT. -On treatment for cellulitis -Wound cultures presumptive staph, ID following MDS -On treatment with Dacogen, last tx on 11/28/23 -Today WBC 1.4, ANC 670, no fevers, on abx, ID following, no GCSF at this time. Hgb 6.8-s/p 1 unit for Hgb of 6.2. 1 unit PRBCs ordered, stable. Plt 73,000. -Continue to monitor CBC. Transfuse for hgb less than 7 or if symptomatic. Will follow pt hospital course.
[2023-12-29 17:06] LABS: Glucose,Whole Blood 235 mg/dL (70-110)
[2023-12-29 20:42] LABS: Glucose,Whole Blood 266 mg/dL (70-110)
[2023-12-30 07:29] LABS: Glucose,Whole Blood 137 mg/dL (70-110)
[2023-12-30] MEDS: DAPTOmycin 350 MG in SODIUM CHLORIDE 0.9% 50 ML IVPB SCH (09:01)
[2023-12-30 09:12] LABS: Magnesium 2.1 mg/dL (1.5-2.4)
[2023-12-30 10:02] LABS: BUN/Creat Ratio 30.05 Ratio (12.00-20.00); Blood Urea Nitrogen 60.1 mg/dL (9.0-27.0); Carbon Dioxide 15.9 mmol/L (21.6-31.8); Chloride 108 mmol/L (96-109); Glucose 175 mg/dL (70-110); Potassium 4.5 mmol/L (3.5-5.5); Sodium 131 mmol/L (135-145)
[2023-12-30 10:36] LABS: Anisocytosis (M) 2+; Basophils # (A) 0.01 X 10*3/uL (0.00-0.10); Basophils % (A) 0.5 %; Elliptocytes 2+; Eosinophils # (A) 0.01 X 10*3/uL (0.04-0.35); Eosinophils % (A) 0.5 %; HCT 22.2 % (37.2-50.0); HGB 7.4 g/dL (12.0-17.0); Immature Platelet Fraction 2.5 % (1.1-6.1); Lymphocytes # (A) 0.56 X 10*3/uL (0.90-5.00); Lymphocytes % (A) 29.8 %; MCH 34.6 pg (27.0-32.0); MCHC 33.3 g/dL (32.0-37.0); MCV 103.7 FL (80.0-97.0); Macrocytosis (M) 2+; Mean Platelet Volume 10.8 FL (9.5-12.2); Monocytes # (A) 0.27 X 10*3/uL (0.20-1.00); Monocytes % (A) 14.4 %; NRBC Per 100 WBC 0 X 10*3/uL (0.00-0.01); Neutrophils # (A) 1.01 X 10*3/uL (1.80-7.70); Neutrophils % (A) 53.7 %; Platelet Count 64 X 10*3/uL (140-440); RBC 2.14 X 10*6/uL (4.10-5.60); WBC 1.88 X 10*3/uL (4.50-10.00)
--- NOTE | 2023-12-30 11:17 | P.PN ---
Subjective Patient is seen in follow-up for acute kidney injury. Renal function stable. Currently has Ulrich catheter. Nonoliguric. Hemoglobin 7.4 today. Vital signs are stable. General: No acute distress. HEENT: Head exam is unremarkable. LUNGS: No audible rhonchi or wheezes. HEART: Rate and Rhythm are regular. ABDOMEN: Nontender. EXTREMITITES: 2+ edema. No drainage. Objective - Vital Signs Vital signs: Vital Signs Temp 97.9 F 12/30/23 07:02 Pulse 71 12/30/23 07:02 Resp 16 12/30/23 07:02 BP 108/43 12/30/23 07:02 Pulse Ox 96 12/30/23 07:02 FiO2 Intake & Output 12/29/23 12/30/23 12/30/23 18:59 06:59 18:59 Intake Total 2162 Output Total 700 325 Balance 1462 -325 Intake: IV 310 PRBC 310 Intake, IV Titration 50 Amount Desmopressin Acetate 24 50 mcg In Sodium Chloride 0. 9% 50 ml @ 200 mls/hr IVPB ONCE ONE Rx#: [id number] Oral 1492 Blood Product 310 Rc Irr As1 Unit 310 [id number] Output: Urine 700 325 Other: Voiding Method Toilet Indwelling Catheter - Labs CBC & Chem 7: 12/30/23 03:56 12/30/23 03:56 Labs: Abnormal Lab Results - Last 24 Hours (Table) 12/28/23 12/29/23 12/29/23 Range/Units 11:49 12:18 17:04 WBC (4.50-10.00) X 10*3/uL RBC (4.10-5.60) X 10*6/uL Hgb (12.0-17.0) g/dL Hct (37.2-50.0) % MCV (80.0-97.0) FL MCH (27.0-32.0) pg Plt Count (140-440) X 10*3/uL Neutrophils # (1.80-7.70) X 10*3/uL Lymphocytes # (0.90-5.00) X 10*3/uL Eosinophils # (0.04-0.35) X 10*3/uL Anisocytosis (manual) Macrocytosis (manual) Elliptocytes Sodium (135-145) mmol/L Carbon Dioxide (21.6-31.8) mmol/L BUN (9.0-27.0) mg/dL Creatinine (0.6-1.5) mg/dL Est GFR (CKD-EPI) (>=60) BUN/Creatinine Ratio (12.00-20.00) Ratio Glucose (70-110) mg/dL POC Glucose (mg/dL) 183 H 235 H (70-110) mg/dL Calcium (8.7-10.3) mg/dL Crossmatch See Detail 12/29/23 12/30/23 12/30/23 Range/Units 20:40 03:56 03:56 WBC 1.88 L (4.50-10.00) X 10*3/uL RBC 2.14 L (4.10-5.60) X 10*6/uL Hgb 7.4 L (12.0-17.0) g/dL Hct 22.2 L (37.2-50.0) % MCV 103.7 H (80.0-97.0) FL MCH 34.6 H (27.0-32.0) pg Plt Count 64 L (140-440) X 10*3/uL Neutrophils # 1.01 L (1.80-7.70) X 10*3/uL Lymphocytes # 0.56 L (0.90-5.00) X 10*3/uL Eosinophils # 0.01 L (0.04-0.35) X 10*3/uL Anisocytosis (manual) 2+ A Macrocytosis (manual) 2+ A Elliptocytes 2+ A Sodium 131 L (135-145) mmol/L Carbon Dioxide 15.9 L (21.6-31.8) mmol/L BUN 60.1 H (9.0-27.0) mg/dL Creatinine 2.0 H (0.6-1.5) mg/dL Est GFR (CKD-EPI) 32 L (>=60) BUN/Creatinine Ratio 30.05 H (12.00-20.00) Ratio Glucose 175 H (70-110) mg/dL POC Glucose (mg/dL) 266 H (70-110) mg/dL Calcium 7.0 L (8.7-10.3) mg/dL Crossmatch 12/30/23 Range/Units 07:27 WBC (4.50-10.00) X 10*3/uL RBC (4.10-5.60) X 10*6/uL Hgb (12.0-17.0) g/dL Hct (37.2-50.0) % MCV (80.0-97.0) FL MCH (27.0-32.0) pg Plt Count (140-440) X 10*3/uL Neutrophils # (1.80-7.70) X 10*3/uL Lymphocytes # (0.90-5.00) X 10*3/uL Eosinophils # (0.04-0.35) X 10*3/uL Anisocytosis (manual) Macrocytosis (manual) Elliptocytes Sodium (135-145) mmol/L Carbon Dioxide (21.6-31.8) mmol/L BUN (9.0-27.0) mg/dL Creatinine (0.6-1.5) mg/dL Est GFR (CKD-EPI) (>=60) BUN/Creatinine Ratio (12.00-20.00) Ratio Glucose (70-110) mg/dL POC Glucose (mg/dL) 137 H (70-110) mg/dL Calcium (8.7-10.3) mg/dL Crossmatch Microbiology - Last 24 Hours (Table) 12/27/23 21:30 Stool Culture - Preliminary Stool 12/27/23 14:19 Anaerobic Culture - Preliminary Leg - Left 12/27/23 14:19 Gram Stain - Final Leg - Left Wound Culture - Final Staphylococcus aureus 12/27/23 10:20 Blood Culture - Preliminary Blood Assessment and Plan Plan: Assessment: 1. Acute kidney injury secondary to ATN secondary to anemia. Creatinine 1.1 in May 2023. Stable at 2.0 today. No hydronephrosis noted on kidney ultrasound. UA fairly benign. No hydronephrosis noted on kidney ultrasound. 2. Lower extremity cellulitis on antibiotics. Wound culture positive for staph. 3. MDS maintained on chemotherapy. Status post blood transfusion this admission. Also received IV DDAVP. Oncology following. 4. Benign hypertension. Controlled. 5. Diabetes mellitus. 6. Lower extremity edema. 7. Hypervolemic hyponatremia. 8. Metabolic acidosis secondary to acute kidney injury maintained on bicarb drip. Improving. Plan: Maintain bicarb drip for now. 2 amp sodium bicarb IV push today. Lasix 40 mg IV once today. Continue to monitor renal function and urine output. Hold amlodipine for systolic blood pressure less than 120.
[2023-12-30 12:03] LABS: Glucose,Whole Blood 220 mg/dL (70-110)
[2023-12-30] MEDS: FUROSEMIDE 10 MG/ML 4 ML VIAL IV STA (12:45)
[2023-12-30] MEDS: SODIUM BICARB 8.4% 50 ML SYR (1 MEQ/ML) IV STA (12:55)
--- NOTE | 2023-12-30 13:38 | P.PN ---
Subjective Progress Note Date: 12/28/23 Principal diagnosis: Reason for follow-up is right lower extremity wound and cellulitis Patient is a 83-year-old male with a past medical history significant for diabetes mellitus hypertension hyperlipidemia osteoarthritis MDS presenting to the hospital for evaluation of right lower extremity swelling and redness follow-up he did have small puncture wound that was cultured and started on antibiotic. On today's evaluation that is 12/28/2023, patient has been afebrile, patient is breathing comfortably and is currently on room air, patient denies having any significant cough no chest pain shortness of breath, patient denies nausea vomiting or diarrhea and no abdominal pain patient denies any worsening pain to the right leg area. Patient white count is 1.41 creatinine is 2.3 Objective - Vital Signs Vital signs: Vital Signs Temp 97.6 F 12/28/23 14:17 Pulse 80 12/28/23 14:17 Resp 18 12/28/23 14:17 BP 130/62 12/28/23 14:17 Pulse Ox 100 12/28/23 14:17 FiO2 Intake & Output 12/27/23 12/28/23 12/28/23 18:59 06:59 18:59 Intake Total 990 1610 200 Balance 990 1610 200 Weight 83.915 kg Intake: Intake, IV Titration 450 900 Amount Levofloxacin 750Mg-D5w 150 Pmx 750 mg In Dextrose/ Water 1 150ml.bag @ 100 mls/hr IVPB Q48H [facility] Rx#: [id number] Sodium Chloride 0.9% 1, 300 900 000 ml @ 75 mls/hr IV . [id number] [facility] Rx#:[id number] Oral 540 710 200 Blood Product 0 Unit 0 Other: # Voids 1 # Bowel Movements 1 - Exam GENERAL DESCRIPTION: An elderly male lying in bed in no distress RESPIRATORY SYSTEM: Unlabored breathing , decreased breath sounds at bases HEART: S1 S2 regular rate and rhythm , ABDOMEN: Soft , no tenderness EXTREMITIES: Right leg wound is currently dressed redness slightly decreased in intensity - Labs CBC & Chem 7: 12/30/23 03:56 12/30/23 03:56 Labs: Abnormal Lab Results - Last 24 Hours (Table) 12/27/23 12/27/23 12/28/23 Range/Units 17:12 20:05 04:02 WBC 1.41 A* (4.50-10.00) X 10*3/uL RBC 1.57 L (4.10-5.60) X 10*6/uL Hgb 6.2 A* (12.0-17.0) g/dL Hct 18.8 A* (37.2-50.0) % MCV 119.7 H (80.0-97.0) FL MCH 39.5 H (27.0-32.0) pg RDW 16.0 H (11.5-14.5) % Plt Count 72 L (140-440) X 10*3/uL Neutrophils # 0.69 L (1.80-7.70) X 10*3/uL Lymphocytes # 0.53 L (0.90-5.00) X 10*3/uL Monocytes # 0.17 L (0.20-1.00) X 10*3/uL Eosinophils # 0 L (0.04-0.35) X 10*3/uL Toxic Granulation 2+ A Macrocytosis (manual) 3+ A Sodium (135-145) mmol/L Chloride (96-109) mmol/L Carbon Dioxide (21.6-31.8) mmol/L BUN (9.0-27.0) mg/dL Creatinine (0.6-1.5) mg/dL Est GFR (CKD-EPI) (>=60) BUN/Creatinine Ratio (12.00-20.00) Ratio Glucose (70-110) mg/dL POC Glucose (mg/dL) 181 H 191 H (70-110) mg/dL Calcium (8.7-10.3) mg/dL AST (13-35) U/L Alkaline Phosphatase (41-126) U/L Total Protein (6.2-8.2) g/dL Albumin (3.8-4.9) g/dL Albumin/Globulin Ratio (1.60-3.17) Ratio Urine Protein (Negative) Crossmatch 12/28/23 12/28/23 12/28/23 Range/Units 04:02 11:49 11:49 WBC (4.50-10.00) X 10*3/uL RBC (4.10-5.60) X 10*6/uL Hgb (12.0-17.0) g/dL Hct (37.2-50.0) % MCV (80.0-97.0) FL MCH (27.0-32.0) pg RDW (11.5-14.5) % Plt Count (140-440) X 10*3/uL Neutrophils # (1.80-7.70) X 10*3/uL Lymphocytes # (0.90-5.00) X 10*3/uL Monocytes # (0.20-1.00) X 10*3/uL Eosinophils # (0.04-0.35) X 10*3/uL Toxic Granulation Macrocytosis (manual) Sodium 132 L (135-145) mmol/L Chloride 110 H (96-109) mmol/L Carbon Dioxide 12.5 L (21.6-31.8) mmol/L BUN 60.6 H (9.0-27.0) mg/dL Creatinine 2.3 H (0.6-1.5) mg/dL Est GFR (CKD-EPI) 27 L (>=60) BUN/Creatinine Ratio 26.35 H (12.00-20.00) Ratio Glucose 123 H (70-110) mg/dL POC Glucose (mg/dL) 160 H (70-110) mg/dL Calcium 7.4 L (8.7-10.3) mg/dL AST 40 H (13-35) U/L Alkaline Phosphatase 429 H (41-126) U/L Total Protein 4.9 L (6.2-8.2) g/dL Albumin 2.8 L (3.8-4.9) g/dL Albumin/Globulin Ratio 1.33 L (1.60-3.17) Ratio Urine Protein (Negative) Crossmatch See Detail 12/28/23 Range/Units 12:51 WBC (4.50-10.00) X 10*3/uL RBC (4.10-5.60) X 10*6/uL Hgb (12.0-17.0) g/dL Hct (37.2-50.0) % MCV (80.0-97.0) FL MCH (27.0-32.0) pg RDW (11.5-14.5) % Plt Count (140-440) X 10*3/uL Neutrophils # (1.80-7.70) X 10*3/uL Lymphocytes # (0.90-5.00) X 10*3/uL Monocytes # (0.20-1.00) X 10*3/uL Eosinophils # (0.04-0.35) X 10*3/uL Toxic Granulation Macrocytosis (manual) Sodium (135-145) mmol/L Chloride (96-109) mmol/L Carbon Dioxide (21.6-31.8) mmol/L BUN (9.0-27.0) mg/dL Creatinine (0.6-1.5) mg/dL Est GFR (CKD-EPI) (>=60) BUN/Creatinine Ratio (12.00-20.00) Ratio Glucose (70-110) mg/dL POC Glucose (mg/dL) (70-110) mg/dL Calcium (8.7-10.3) mg/dL AST (13-35) U/L Alkaline Phosphatase (41-126) U/L Total Protein (6.2-8.2) g/dL Albumin (3.8-4.9) g/dL Albumin/Globulin Ratio (1.60-3.17) Ratio Urine Protein Trace H (Negative) Crossmatch Assessment and Plan (1) Cellulitis of right leg Current Visit: Yes Status: Acute Priority: High Code(s): L03.115 - CELLULITIS OF RIGHT LOWER LIMB SNOMED Code(s): 29937462381880900 Plan: 1patient presented to hospital with a left lower extremity pain swelling and redness in this patient who did have a small wound with some purulent drainage has been culture with surrounding cellulitis likely from gram-positive skin seda such as staph/strep. 2patient with renal insufficiency high risk of nephrotoxicity. 3we will apply Aquacel silver dressing to the left leg wound followed by Anthony wrap to get some of the swelling down. 4patient to continue with n daptomycin 4 mg/kg daily while waiting for the culture to finalize Dictation was produced using [employer] dictation software. please excuse any grammatical, word or spelling errors. Time with Patient: Less than 30
--- NOTE | 2023-12-30 13:39 | P.PN ---
Subjective Progress Note Date: 12/29/23 Principal diagnosis: Reason for follow-up is right lower extremity wound and cellulitis Patient is a 83-year-old male with a past medical history significant for diabetes mellitus hypertension hyperlipidemia osteoarthritis MDS presenting to the hospital for evaluation of right lower extremity swelling and redness follow-up he did have small puncture wound that was cultured and started on antibiotic. On today's evaluation that is 12/29/2023, Patient is afebrile this morning patient denies having any chest pain shortness of breath or cough, the patient is breathing comfortably on room air, patient denies any abdominal pain no diarrhea no nausea no vomiting, the patient pain to the right lower extremity has slightly decreased in intensity. Patient white count is 1.45 creatinine is 2.0 local culture growing Staph aureus Objective - Vital Signs Vital signs: Vital Signs Temp 97.7 F 12/29/23 07:28 Pulse 78 12/29/23 07:28 Resp 17 12/29/23 07:28 BP 125/54 12/29/23 07:28 Pulse Ox 100 12/29/23 07:28 FiO2 Intake & Output 12/28/23 12/29/23 12/29/23 18:59 06:59 18:59 Intake Total 2270 240 Output Total 550 300 Balance 1720 -300 240 Intake: Intake, IV Titration 800 Amount DAPTOmycin 350 mg In 50 Sodium Chloride 0.9% 50 ml @ 100 mls/hr IVPB Q24HR SER[facility] Rx#:[id number] Sodium Chloride 0.9% 1, 750 000 ml @ 75 mls/hr IV . [id number] SERINA Rx#:[id number] Oral 1160 240 Blood Product 310 Rc Irr As1 Unit 310 [id number] Output: Urine 550 150 Straight 100 150 Post Void Residual 150 Other: Voiding Method Toilet Toilet # Voids 2 - Exam GENERAL DESCRIPTION: An elderly male lying in bed in no distress RESPIRATORY SYSTEM: Unlabored breathing , decreased breath sounds at bases HEART: S1 S2 regular rate and rhythm , ABDOMEN: Soft , no tenderness EXTREMITIES: Right leg wound is currently dressed redness slightly decreased in intensity - Labs CBC & Chem 7: 12/30/23 03:56 12/30/23 03:56 Labs: Abnormal Lab Results - Last 24 Hours (Table) 12/28/23 12/28/23 12/28/23 Range/Units 11:49 11:49 12:51 WBC (4.50-10.00) X 10*3/uL RBC (4.10-5.60) X 10*6/uL Hgb (12.0-17.0) g/dL Hct (37.2-50.0) % MCV (80.0-97.0) FL MCH (27.0-32.0) pg RDW (11.5-14.5) % Plt Count (140-440) X 10*3/uL Neutrophils # (1.80-7.70) X 10*3/uL Lymphocytes # (0.90-5.00) X 10*3/uL Eosinophils # (0.04-0.35) X 10*3/uL Macrocytosis (manual) Elliptocytes Sodium (135-145) mmol/L Chloride (96-109) mmol/L Carbon Dioxide (21.6-31.8) mmol/L BUN (9.0-27.0) mg/dL Creatinine (0.6-1.5) mg/dL Est GFR (CKD-EPI) (>=60) BUN/Creatinine Ratio (12.00-20.00) Ratio POC Glucose (mg/dL) 160 H (70-110) mg/dL Calcium (8.7-10.3) mg/dL Urine Protein Trace H (Negative) Crossmatch See Detail 12/28/23 12/28/23 12/29/23 Range/Units 17:16 20:23 04:27 WBC (4.50-10.00) X 10*3/uL RBC (4.10-5.60) X 10*6/uL Hgb (12.0-17.0) g/dL Hct (37.2-50.0) % MCV (80.0-97.0) FL MCH (27.0-32.0) pg RDW (11.5-14.5) % Plt Count (140-440) X 10*3/uL Neutrophils # (1.80-7.70) X 10*3/uL Lymphocytes # (0.90-5.00) X 10*3/uL Eosinophils # (0.04-0.35) X 10*3/uL Macrocytosis (manual) Elliptocytes Sodium 132 L (135-145) mmol/L Chloride 111 H (96-109) mmol/L Carbon Dioxide 12.6 L (21.6-31.8) mmol/L BUN 54.6 H (9.0-27.0) mg/dL Creatinine 2.0 H (0.6-1.5) mg/dL Est GFR (CKD-EPI) 32 L (>=60) BUN/Creatinine Ratio 27.30 H (12.00-20.00) Ratio POC Glucose (mg/dL) 223 H 236 H (70-110) mg/dL Calcium 7.4 L (8.7-10.3) mg/dL Urine Protein (Negative) Crossmatch 12/29/23 Range/Units 04:27 WBC 1.45 A* (4.50-10.00) X 10*3/uL RBC 1.89 L (4.10-5.60) X 10*6/uL Hgb 6.8 A* (12.0-17.0) g/dL Hct 20.7 L (37.2-50.0) % MCV 109.5 H (80.0-97.0) FL MCH 36.0 H (27.0-32.0) pg RDW 21.0 H (11.5-14.5) % Plt Count 73 L (140-440) X 10*3/uL Neutrophils # 0.67 L (1.80-7.70) X 10*3/uL Lymphocytes # 0.54 L (0.90-5.00) X 10*3/uL Eosinophils # 0.01 L (0.04-0.35) X 10*3/uL Macrocytosis (manual) 3+ A Elliptocytes 2+ A Sodium (135-145) mmol/L Chloride (96-109) mmol/L Carbon Dioxide (21.6-31.8) mmol/L BUN (9.0-27.0) mg/dL Creatinine (0.6-1.5) mg/dL Est GFR (CKD-EPI) (>=60) BUN/Creatinine Ratio (12.00-20.00) Ratio POC Glucose (mg/dL) (70-110) mg/dL Calcium (8.7-10.3) mg/dL Urine Protein (Negative) Crossmatch Microbiology - Last 24 Hours (Table) 12/27/23 21:30 Stool Culture - Preliminary Stool 12/27/23 14:19 Gram Stain - Preliminary Leg - Left Wound Culture - Preliminary Presumptive Staph aureus 12/27/23 10:20 Blood Culture - Preliminary Blood Assessment and Plan (1) Cellulitis of right leg Current Visit: Yes Status: Acute Priority: High Code(s): L03.115 - CELLULITIS OF RIGHT LOWER LIMB SNOMED Code(s): 26537722366371046 Plan: 1patient presented to hospital with a left lower extremity pain swelling and redness in this patient who did have a small wound with some purulent drainage has been culture with surrounding cellulitis likely from gram-positive skin seda such as staph/strep. 2patient with renal insufficiency high risk of nephrotoxicity. 3patient to continue local wound care with Aquacel silver dressing to the left leg wound followed by Anthony wrap to get some of the swelling down. 4patient local culture currently growing Staph aureus sensitivities pending, to continue with daptomycin 4 mg/kg daily while waiting for the culture to finalize Dictation was produced using [employer] dictation software. please excuse any grammatical, word or spelling errors. Time with Patient: Less than 30
--- NOTE | 2023-12-30 13:41 | P.PN ---
Subjective Progress Note Date: 12/30/23 Principal diagnosis: Reason for follow-up is right lower extremity wound and cellulitis Patient is a 83-year-old male with a past medical history significant for diabetes mellitus hypertension hyperlipidemia osteoarthritis MDS presenting to the hospital for evaluation of right lower extremity swelling and redness follow-up he did have small puncture wound that was cultured and started on antibiotic. On today's evaluation that is 12/30/2023,the patient denies any fever or any chills, patient is breathing comfortably on room air, the patient denies chest pain shortness of breath and no significant cough, patient denies abdominal pain, no nausea vomiting or diarrhea. Patient pain to the right has decreased still having some swelling redness but no drainage. Patient white count is 1.88, creatinine is 2.0 local culture has been finalized with MSSA anaerobe cultures pending Objective - Vital Signs Vital signs: Vital Signs Temp 97.9 F 12/30/23 07:02 Pulse 71 12/30/23 07:02 Resp 16 12/30/23 07:02 BP 108/43 12/30/23 07:02 Pulse Ox 96 12/30/23 07:02 FiO2 Intake & Output 12/29/23 12/30/23 12/30/23 18:59 06:59 18:59 Intake Total 2162 Output Total 700 325 Balance 1462 -325 Intake: IV 310 PRBC 310 Intake, IV Titration 50 Amount Desmopressin Acetate 24 50 mcg In Sodium Chloride 0. 9% 50 ml @ 200 mls/hr IVPB ONCE ONE Rx#: [id number] Oral 1492 Blood Product 310 Rc Irr As1 Unit 310 [id number] Output: Urine 700 325 Other: Voiding Method Toilet Indwelling Catheter - Exam GENERAL DESCRIPTION: An elderly male lying in bed in no distress RESPIRATORY SYSTEM: Unlabored breathing , decreased breath sounds at bases HEART: S1 S2 regular rate and rhythm , ABDOMEN: Soft , no tenderness EXTREMITIES: Right leg swelling redness slightly decreased no drainage of the dressing - Labs CBC & Chem 7: 12/30/23 03:56 12/30/23 03:56 Labs: Abnormal Lab Results - Last 24 Hours (Table) 12/28/23 12/29/23 12/29/23 Range/Units 11:49 12:18 17:04 WBC (4.50-10.00) X 10*3/uL RBC (4.10-5.60) X 10*6/uL Hgb (12.0-17.0) g/dL Hct (37.2-50.0) % MCV (80.0-97.0) FL MCH (27.0-32.0) pg Plt Count (140-440) X 10*3/uL Neutrophils # (1.80-7.70) X 10*3/uL Lymphocytes # (0.90-5.00) X 10*3/uL Eosinophils # (0.04-0.35) X 10*3/uL Anisocytosis (manual) Macrocytosis (manual) Elliptocytes Sodium (135-145) mmol/L Carbon Dioxide (21.6-31.8) mmol/L BUN (9.0-27.0) mg/dL Creatinine (0.6-1.5) mg/dL Est GFR (CKD-EPI) (>=60) BUN/Creatinine Ratio (12.00-20.00) Ratio Glucose (70-110) mg/dL POC Glucose (mg/dL) 183 H 235 H (70-110) mg/dL Calcium (8.7-10.3) mg/dL Crossmatch See Detail 12/29/23 12/30/23 12/30/23 Range/Units 20:40 03:56 03:56 WBC 1.88 L (4.50-10.00) X 10*3/uL RBC 2.14 L (4.10-5.60) X 10*6/uL Hgb 7.4 L (12.0-17.0) g/dL Hct 22.2 L (37.2-50.0) % MCV 103.7 H (80.0-97.0) FL MCH 34.6 H (27.0-32.0) pg Plt Count 64 L (140-440) X 10*3/uL Neutrophils # 1.01 L (1.80-7.70) X 10*3/uL Lymphocytes # 0.56 L (0.90-5.00) X 10*3/uL Eosinophils # 0.01 L (0.04-0.35) X 10*3/uL Anisocytosis (manual) 2+ A Macrocytosis (manual) 2+ A Elliptocytes 2+ A Sodium 131 L (135-145) mmol/L Carbon Dioxide 15.9 L (21.6-31.8) mmol/L BUN 60.1 H (9.0-27.0) mg/dL Creatinine 2.0 H (0.6-1.5) mg/dL Est GFR (CKD-EPI) 32 L (>=60) BUN/Creatinine Ratio 30.05 H (12.00-20.00) Ratio Glucose 175 H (70-110) mg/dL POC Glucose (mg/dL) 266 H (70-110) mg/dL Calcium 7.0 L (8.7-10.3) mg/dL Crossmatch 12/30/23 Range/Units 07:27 WBC (4.50-10.00) X 10*3/uL RBC (4.10-5.60) X 10*6/uL Hgb (12.0-17.0) g/dL Hct (37.2-50.0) % MCV (80.0-97.0) FL MCH (27.0-32.0) pg Plt Count (140-440) X 10*3/uL Neutrophils # (1.80-7.70) X 10*3/uL Lymphocytes # (0.90-5.00) X 10*3/uL Eosinophils # (0.04-0.35) X 10*3/uL Anisocytosis (manual) Macrocytosis (manual) Elliptocytes Sodium (135-145) mmol/L Carbon Dioxide (21.6-31.8) mmol/L BUN (9.0-27.0) mg/dL Creatinine (0.6-1.5) mg/dL Est GFR (CKD-EPI) (>=60) BUN/Creatinine Ratio (12.00-20.00) Ratio Glucose (70-110) mg/dL POC Glucose (mg/dL) 137 H (70-110) mg/dL Calcium (8.7-10.3) mg/dL Crossmatch Microbiology - Last 24 Hours (Table) 12/27/23 21:30 Stool Culture - Preliminary Stool 12/27/23 14:19 Anaerobic Culture - Preliminary Leg - Left 12/27/23 14:19 Gram Stain - Final Leg - Left Wound Culture - Final Staphylococcus aureus 12/27/23 10:20 Blood Culture - Preliminary Blood Assessment and Plan (1) Cellulitis of right leg Current Visit: Yes Status: Acute Priority: High Code(s): L03.115 - CELLULITIS OF RIGHT LOWER LIMB SNOMED Code(s): 53180526391418920 (2) MSSA (methicillin susceptible Staphylococcus aureus) infection Current Visit: Yes Status: Acute Code(s): A49.01 - METHICILLIN SUSCEP STAPH INFECTION, UNSP SITE SNOMED Code(s): 736804046 Plan: 1patient presented to hospital with a left lower extremity pain swelling and redness in this patient who did have a small wound with some purulent drainage has been culture with surrounding cellulitis likely from gram-positive skin seda such as staph/strep. 2patient with renal insufficiency high risk of nephrotoxicity. 3patient to continue local wound care with Aquacel silver dressing to the left leg wound followed by Anthony wrap to get some of the swelling down. 4patient local culture has been finalized with MSSA we will discontinue daptomycin and start the patient on cefazolin, with the plan to finish therapy with oral Keflex at the bedside questions answered Dictation was produced using [employer] dictation software. please excuse any gramm atical, word or spelling errors. Time with Patient: Less than 30
--- NOTE | 2023-12-30 14:58 | P.PN ---
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 Patient denied any fever or chills. Patient stated that he is unsure but he might have bumped his leg while getting out of the car about 2 weeks ago and started to notice more swelling, redness and pain in the right leg since then. Patient also complaining of loose stools and abdominal distention, denied any abdominal pain. Patient stated that he has chronic lower extremity swelling and takes Lasix for that but right leg has been more swollen and red for last 2 weeks. Patient denied any headache, sore throat, productive cough, chest pain, palpitation, shortness of breath, nausea vomiting abdominal pain dysuria urgency frequency weakness or numbness of the extremities. In the ED patient was afebrile, heart rate 88, respiratory rate 16, blood pressu re 131/58, saturating 100% on room air. WBC is 1.8, hemoglobin 7.4, platelet 109. Sodium 132, potassium 4.6, BUN 56, creatinine 2.27, lactic acid 1.9. 12/28/2023--patient was seen and examined today. Patient's hemoglobin dropped to 6.2 today, WBCs 1.4, platelets 72. 1 unit of irradiated packed RBCs ordered. BUN is 60, creatinine 2.3. Nephrology consulted and following. Hematology following. Patient currently on daptomycin per infectious disease. Ultrasound venous was negative for DVT. 12/29/2023--patient was seen and examined today. Remained afebrile, vital stable. WBCs 1.45, hemoglobin 6.8, platelets 73. 1 unit of elevated packed RBCs ordered per hematology. Creatinine trended down to 2.0 today as compared to 2.3. Nephrology following, required straight cath twice, creatinine is 2.3. Patient remains on daptomycin for lower extremity cellulitis, pulmonary following. Given 1 dose of IV Lasix per nephrology. 12/30/23--seen examined today. Remained afebrile, vital stable. Currently has Ulrich catheter, nephrology following, renal function stable. Nephrology recommended to continue bicarbonate drip for now, given Lasix 40 mg once today. Recommended to hold amlodipine for SBP less than 120. Patient was previously on daptomycin, wound culture grew MSSA, antibiotic changed to cefazolin per infectious disease. Currently stable 7.4. WBCs 1.8, platelets 64. BUN patient is 60, creatinine 2.0. Assessment and plan: Right lower extremity cellulitis: Presented with right lower extremity swelling, warmth, pain, tenderness for 2 weeks Ultrasound venous --negative for DVT. ID consulted--appreciate recs. Blood cultures negative so far Wound culture grew MSSA Was initially on daptomycin, currently on cefazolin. Diarrhea: Gentle IV fluids Stool culture, C. difficile negative Diabetes mellitus: Accu-Cheks, diabetic diet Hypoglycemia protocol Lantus, sliding scale insulin Hypothyroidism: Synthroid MDS: Pancytopenia No sign or symptom of active bleed Monitor CBC Transfuse for hemoglobin less than 7.0 Hematology consulted Status post 2 unit of packed RBCsirradiated on 12/27 and 12/28 due to hemoglobin less than 7. VLAD on CKD: Hold Lasix, lisinopril Gentle IV fluids Monitor renal function Avoid nephrotoxin Nephrology consultedrecommended check CPK, monitor I&O's, bladder scan, renal ultrasound, UA. Ultrasound renal negative for hydronephrosis, small amount of ascites. DVT prophylaxis SCD Monitor vital signs and labs Labs and medication were reviewed. Continue same treatment. Further recommendations as per clinical course of the patient PHYSICAL EXAMINATION: GENERAL: The patient is A&O x3, NAD HEENT: EOMI, Sclerae anicteric, Moist Mucous membranes Neck: Supple, Non tender, No JVD PULMONARY: Equal breath souds B/L, No wheezing, No crackles. CARDIOVASCULAR: S1, S2 present. No murmurs, rubs, or gallops. ABDOMEN: Soft, nontender, distended, normoactive bowel sounds. No guarding or rebound tenderness. MUSCULOSKELETAL: Bilateral edema, right lower extremity more edematous, warmth, tenderness, erythema. EXTREMITIES: No cyanosis, clubbing, or pedal edema. NEUROLOGICAL: CN 2-12 grossly intact. No FND REVIEW OF SYSTEMS: CONSTITUTIONAL: No fever or chills. CARDIOVASCULAR: No chest pain, palpitations or syncope. PULMONARY: No shortness of breath, no cough, sore throat. GASTROINTESTINAL: No nausea, vomiting, diarrhea, abdominal pain. : No Dysuria, urgency, frequency. Extremities: No edema. NEUROLOGICAL: No headaches, no weakness, or numbness Dictation was produced using [employer] dictation software. please excuse any gramm atical, word or spelling errors. Objective - Vital Signs Vital signs: Vital Signs Temp 98.1 F 12/30/23 11:58 Pulse 83 12/30/23 11:58 Resp 16 12/30/23 11:58 BP 123/58 12/30/23 11:58 Pulse Ox 98 12/30/23 11:58 FiO2 Intake & Output 12/29/23 12/30/23 12/30/23 18:59 06:59 18:59 Intake Total 2162 Output Total 700 325 700 Balance 1462 -325 -700 Intake: IV 310 PRBC 310 Intake, IV Titration 50 Amount Desmopressin Acetate 24 50 mcg In Sodium Chloride 0. 9% 50 ml @ 200 mls/hr IVPB ONCE ONE Rx#: [id number] Oral 1492 Blood Product 310 Rc Irr As1 Unit 310 [id number] Output: Urine 700 325 700 Other: Voiding Method Toilet Indwelling Catheter Indwelling Catheter - Labs CBC & Chem 7: 12/30/23 03:56 12/30/23 03:56 Labs: Abnormal Lab Results - Last 24 Hours (Table) 12/28/23 12/29/23 12/29/23 Range/Units 11:49 17:04 20:40 WBC (4.50-10.00) X 10*3/uL RBC (4.10-5.60) X 10*6/uL Hgb (12.0-17.0) g/dL Hct (37.2-50.0) % MCV (80.0-97.0) FL MCH (27.0-32.0) pg Plt Count (140-440) X 10*3/uL Neutrophils # (1.80-7.70) X 10*3/uL Lymphocytes # (0.90-5.00) X 10*3/uL Eosinophils # (0.04-0.35) X 10*3/uL Anisocytosis (manual) Macrocytosis (manual) Elliptocytes Sodium (135-145) mmol/L Carbon Dioxide (21.6-31.8) mmol/L BUN (9.0-27.0) mg/dL Creatinine (0.6-1.5) mg/dL Est GFR (CKD-EPI) (>=60) BUN/Creatinine Ratio (12.00-20.00) Ratio Glucose (70-110) mg/dL POC Glucose (mg/dL) 235 H 266 H (70-110) mg/dL Calcium (8.7-10.3) mg/dL Crossmatch See Detail 12/30/23 12/30/23 12/30/23 Range/Units 03:56 03:56 07:27 WBC 1.88 L (4.50-10.00) X 10*3/uL RBC 2.14 L (4.10-5.60) X 10*6/uL Hgb 7.4 L (12.0-17.0) g/dL Hct 22.2 L (37.2-50.0) % MCV 103.7 H (80.0-97.0) FL MCH 34.6 H (27.0-32.0) pg Plt Count 64 L (140-440) X 10*3/uL Neutrophils # 1.01 L (1.80-7.70) X 10*3/uL Lymphocytes # 0.56 L (0.90-5.00) X 10*3/uL Eosinophils # 0.01 L (0.04-0.35) X 10*3/uL Anisocytosis (manual) 2+ A Macrocytosis (manual) 2+ A Elliptocytes 2+ A Sodium 131 L (135-145) mmol/L Carbon Dioxide 15.9 L (21.6-31.8) mmol/L BUN 60.1 H (9.0-27.0) mg/dL Creatinine 2.0 H (0.6-1.5) mg/dL Est GFR (CKD-EPI) 32 L (>=60) BUN/Creatinine Ratio 30.05 H (12.00-20.00) Ratio Glucose 175 H (70-110) mg/dL POC Glucose (mg/dL) 137 H (70-110) mg/dL Calcium 7.0 L (8.7-10.3) mg/dL Crossmatch 12/30/23 Range/Units 12:01 WBC (4.50-10.00) X 10*3/uL RBC (4.10-5.60) X 10*6/uL Hgb (12.0-17.0) g/dL Hct (37.2-50.0) % MCV (80.0-97.0) FL MCH (27.0-32.0) pg Plt Count (140-440) X 10*3/uL Neutrophils # (1.80-7.70) X 10*3/uL Lymphocytes # (0.90-5.00) X 10*3/uL Eosinophils # (0.04-0.35) X 10*3/uL Anisocytosis (manual) Macrocytosis (manual) Elliptocytes Sodium (135-145) mmol/L Carbon Dioxide (21.6-31.8) mmol/L BUN (9.0-27.0) mg/dL Creatinine (0.6-1.5) mg/dL Est GFR (CKD-EPI) (>=60) BUN/Creatinine Ratio (12.00-20.00) Ratio Glucose (70-110) mg/dL POC Glucose (mg/dL) 220 H (70-110) mg/dL Calcium (8.7-10.3) mg/dL Crossmatch Microbiology - Last 24 Hours (Table) 12/27/23 21:30 Stool Culture - Preliminary Stool 12/27/23 14:19 Anaerobic Culture - Preliminary Leg - Left 12/27/23 14:19 Gram Stain - Final Leg - Left Wound Culture - Final Staphylococcus aureus 12/27/23 10:20 Blood Culture - Preliminary Blood
[2023-12-30 16:59] LABS: Glucose,Whole Blood 241 mg/dL (70-110)
[2023-12-30 20:23] LABS: Glucose,Whole Blood 174 mg/dL (70-110)
[2023-12-31 07:12] LABS: Glucose,Whole Blood 151 mg/dL (70-110)
[2023-12-31 09:16] LABS: BUN/Creat Ratio 31.11 Ratio (12.00-20.00); Calcium 7.3 mg/dL (8.7-10.3); Chloride 105 mmol/L (96-109); Glucose 162 mg/dL (70-110); Potassium 4.3 mmol/L (3.5-5.5); Sodium 132 mmol/L (135-145)
[2023-12-31 10:09] LABS: Anisocytosis Moderate; HCT 27.9 % (39.0-53.0); Hypochromasia Moderate; MCH 36.1 pg (25.0-35.0); Macrocytosis Marked; Mean Platelet Volume 8.1; Platelet Count 107 k/uL (150-450); RBC 2.56 m/uL (4.30-5.90); RDW 21.1 % (11.5-15.5); WBC 2.8 k/uL (3.8-10.6)
[2023-12-31 10:11] LABS: HGB 9.2 gm/dL (13.0-17.5)
[2023-12-31 10:12] LABS: MCV 109.3 fL (80.0-100.0)
[2023-12-31 10:24] LABS: Basophils # (M) 0.03 k/uL (0-0.2); Lymphocytes # (M) 0.36 k/uL (1.0-4.8); Monocytes # (M) 0.25 k/uL (0-1.0); Neutrophils # (M) 2.16 k/uL (1.3-7.7); Neutrophils % (M) 77 %; Nucleated Red Blood Cells 0 /100 WBC (0-0); Total Cells Counted 100
[2023-12-31 11:59] LABS: Glucose,Whole Blood 226 mg/dL (70-110)
--- NOTE | 2023-12-31 12:20 | P.PN ---
Subjective Patient is seen in follow-up for acute kidney injury. Renal function little better. Has Ulrich catheter. Nonoliguric. Hemoglobin 9.2 today. Vital signs are stable. General: No acute distress. HEENT: Head exam is unremarkable. LUNGS: No audible rhonchi or wheezes. HEART: Rate and Rhythm are regular. ABDOMEN: Nontender. EXTREMITITES: 2+ edema. No drainage. Objective - Vital Signs Vital signs: Vital Signs Temp 97.9 F 12/31/23 07:08 Pulse 80 12/31/23 07:08 Resp 18 12/31/23 07:08 BP 111/50 12/31/23 07:08 Pulse Ox 97 12/31/23 07:08 FiO2 Intake & Output 12/30/23 12/31/23 12/31/23 18:59 06:59 18:59 Output Total 1400 400 Balance -1400 -400 Output: Urine 1400 400 Other: Voiding Method Indwelling Catheter Indwelling Catheter Indwelling Catheter - Labs CBC & Chem 7: 12/31/23 09:28 12/31/23 05:45 Labs: Abnormal Lab Results - Last 24 Hours (Table) 12/30/23 12/30/23 12/31/23 Range/Units 16:56 20:15 05:45 WBC (3.8-10.6) k/uL RBC (4.30-5.90) m/uL Hgb (13.0-17.5) gm/dL Hct (39.0-53.0) % MCV (80.0-100.0) fL MCH (25.0-35.0) pg RDW (11.5-15.5) % Plt Count (150-450) k/uL Lymphocytes # (Manual) (1.0-4.8) k/uL Macrocytosis Sodium 132 L (135-145) mmol/L Carbon Dioxide 19.0 L (21.6-31.8) mmol/L BUN 56.0 H (9.0-27.0) mg/dL Creatinine 1.8 H (0.6-1.5) mg/dL Est GFR (CKD-EPI) 37 L (>=60) BUN/Creatinine Ratio 31.11 H (12.00-20.00) Ratio Glucose 162 H (70-110) mg/dL POC Glucose (mg/dL) 241 H 174 H (70-110) mg/dL Calcium 7.3 L (8.7-10.3) mg/dL 12/31/23 12/31/23 12/31/23 Range/Units 07:11 09:28 11:57 WBC 2.8 L (3.8-10.6) k/uL RBC 2.56 L (4.30-5.90) m/uL Hgb 9.2 L D (13.0-17.5) gm/dL Hct 27.9 L (39.0-53.0) % MCV 109.3 H D (80.0-100.0) fL MCH 36.1 H (25.0-35.0) pg RDW 21.1 H (11.5-15.5) % Plt Count 107 L (150-450) k/uL Lymphocytes # (Manual) 0.36 L (1.0-4.8) k/uL Macrocytosis Marked A Sodium (135-145) mmol/L Carbon Dioxide (21.6-31.8) mmol/L BUN (9.0-27.0) mg/dL Creatinine (0.6-1.5) mg/dL Est GFR (CKD-EPI) (>=60) BUN/Creatinine Ratio (12.00-20.00) Ratio Glucose (70-110) mg/dL POC Glucose (mg/dL) 151 H 226 H (70-110) mg/dL Calcium (8.7-10.3) mg/dL Microbiology - Last 24 Hours (Table) 12/27/23 21:30 Stool Culture - Final Stool 12/27/23 10:20 Blood Culture - Preliminary Blood Assessment and Plan Plan: Assessment: 1. Acute kidney injury secondary to ATN secondary to anemia. Creatinine 1.1 in May 2023. Renal function better. Creatinine 1.8. No hydronephrosis noted on kidney ultrasound. UA fairly benign. No hydronephrosis noted on kidney ultrasound. 2. Lower extremity cellulitis on antibiotics. Wound culture positive for staph. 3. MDS maintained on chemotherapy. Status post blood transfusion this admission. Also received IV DDAVP. Oncology following. 4. Benign hypertension. Controlled. 5. Diabetes mellitus. 6. Lower extremity edema. 7. Hypervolemic hyponatremia. Better with diuresis. 8. Metabolic acidosis secondary to acute kidney injury maintained on bicarb drip. Better. Plan: Hep-Lock IV fluids. Add IV Lasix 40 mg twice daily. Continue to monitor renal function and urine output. Hold amlodipine for systolic blood pressure less than 120.
[2023-12-31] MEDS: FUROSEMIDE 10 MG/ML 4 ML VIAL IV SCH (12:34)
[2023-12-31 17:17] LABS: Glucose,Whole Blood 219 mg/dL (70-110)
--- NOTE | 2023-12-31 19:43 | P.PN ---
Subjective 83-year-old male patient with past medical history significant for MDS currently on chemotherapy, diabetes mellitus, hypertension, hyperlipidemia, thyroid disorder, history of BPH, history of macular degeneration who presented to ED with a complaint of right lower extremity swelling, redness, tenderness and pain for 2 weeks. Patient denied any fever or chills. Patient stated that he is unsure but he might have bumped his leg while getting out of the car about 2 weeks ago and started to notice more swelling, redness and pain in the right leg since then. Patient also complaining of loose stools and abdominal distention, denied any abdominal pain. Patient stated that he has chronic lower extremity swelling and takes Lasix for that but right leg has been more swollen and red for last 2 weeks. Patient denied any headache, sore throat, productive cough, chest pain, palpitation, shortness of breath, nausea vomiting abdominal pain dysuria urgency frequency weakness or numbness of the extremities. In the ED patient was afebrile, heart rate 88, respiratory rate 16, blood pressure 131/58, saturating 100% on room air. WBC is 1.8, hemoglobin 7.4, platelet 109. Sodium 132, potassium 4.6, BUN 56, creatinine 2.27, lactic acid 1.9. 12/28/2023--patient was seen and examined today. Patient's hemoglobin dropped to 6.2 today, WBCs 1.4, platelets 72. 1 unit of irradiated packed RBCs ordered. BUN is 60, creatinine 2.3. Nephrology consulted and following. Hematology following. Patient currently on daptomycin per infectious disease. Ultrasound venous was negative for DVT. 12/29/2023--patient was seen and examined today. Remained afebrile, vital stable. WBCs 1.45, hemoglobin 6.8, platelets 73. 1 unit of elevated packed RBCs ordered per hematology. Creatinine trended down to 2.0 today as compared to 2.3. Nephrology following, required straight cath twice, creatinine is 2.3. Patient remains on daptomycin for lower extremity cellulitis, pulmonary following. Given 1 dose of IV Lasix per nephrology. 12/30/23--seen examined today. Remained afebrile, vital stable. Currently has Ulrich catheter, nephrology following, renal function stable. Nephrology recommended to continue bicarbonate drip for now, given Lasix 40 mg once today. Recommended to hold amlodipine for SBP less than 120. Patient was previously on daptomycin, wound culture grew MSSA, antibiotic changed to cefazolin per infectious disease. Currently stable 7.4. WBCs 1.8, platelets 64. BUN patient is 60, creatinine 2.0. 12/30 Patient still with significant right leg cellulitis with redness swelling pain from. IV fluid was discontinued and patient was started on IV Lasix 40 mg twice daily He continued with antibiotics cefazolin with plan to switch to oral Keflex upon discharge Patient has a Ulrich catheter Patient expected to go home upon discharge however we will follow-up with physical therapy evaluation Objective - Vital Signs Vital signs: Vital Signs Temp 97.4 F L 12/31/23 11:55 Pulse 81 12/31/23 11:55 Resp 18 12/31/23 07:08 BP 126/65 12/31/23 11:55 Pulse Ox 98 12/31/23 11:55 FiO2 Intake & Output 12/30/23 12/31/23 12/31/23 18:59 06:59 18:59 Output Total 1400 400 Balance -1400 -400 Output: Urine 1400 400 Other: Voiding Method Indwelling Catheter Indwelling Catheter Indwelling Catheter - Exam GENERAL: The patient is alert and oriented x3, not in any acute distress. Well developed, well nourished. HEENT: Pupils are round and equally reacting to light. EOMI. No scleral icterus. No conjunctival pallor. Normocephalic, atraumatic. No pharyngeal erythema. No thyromegaly. CARDIOVASCULAR: S1 and S2 present. No murmurs, rubs, or gallops. PULMONARY: Chest is clear to auscultation, no wheezing , no crackles. ABDOMEN: Soft, nontender, nondistended, normoactive bowel sounds. No palpable organomegaly. MUSCULOSKELETAL: No joint swelling or deformity. -EXTREMITIES: No cyanosis, clubbing, or pedal edema. Right leg swelling pink and mild tender NEUROLOGICAL: Gross neurological examination did not reveal any focal deficits. SKIN: No rashes. no petechiae. - Labs CBC & Chem 7: 12/31/23 09:28 12/31/23 05:45 Labs: Abnormal Lab Results - Last 24 Hours (Table) 12/30/23 12/30/23 12/31/23 Range/Units 16:56 20:15 05:45 WBC (3.8-10.6) k/uL RBC (4.30-5.90) m/uL Hgb (13.0-17.5) gm/dL Hct (39.0-53.0) % MCV (80.0-100.0) fL MCH (25.0-35.0) pg RDW (11.5-15.5) % Plt Count (150-450) k/uL Lymphocytes # (Manual) (1.0-4.8) k/uL Macrocytosis Sodium 132 L (135-145) mmol/L Carbon Dioxide 19.0 L (21.6-31.8) mmol/L BUN 56.0 H (9.0-27.0) mg/dL Creatinine 1.8 H (0.6-1.5) mg/dL Est GFR (CKD-EPI) 37 L (>=60) BUN/Creatinine Ratio 31.11 H (12.00-20.00) Ratio Glucose 162 H (70-110) mg/dL POC Glucose (mg/dL) 241 H 174 H (70-110) mg/dL Calcium 7.3 L (8.7-10.3) mg/dL 12/31/23 12/31/23 12/31/23 Range/Units 07:11 09:28 11:57 WBC 2.8 L (3.8-10.6) k/uL RBC 2.56 L (4.30-5.90) m/uL Hgb 9.2 L D (13.0-17.5) gm/dL Hct 27.9 L (39.0-53.0) % MCV 109.3 H D (80.0-100.0) fL MCH 36.1 H (25.0-35.0) pg RDW 21.1 H (11.5-15.5) % Plt Count 107 L (150-450) k/uL Lymphocytes # (Manual) 0.36 L (1.0-4.8) k/uL Macrocytosis Marked A Sodium (135-145) mmol/L Carbon Dioxide (21.6-31.8) mmol/L BUN (9.0-27.0) mg/dL Creatinine (0.6-1.5) mg/dL Est GFR (CKD-EPI) (>=60) BUN/Creatinine Ratio (12.00-20.00) Ratio Glucose (70-110) mg/dL POC Glucose (mg/dL) 151 H 226 H (70-110) mg/dL Calcium (8.7-10.3) mg/dL Microbiology - Last 24 Hours (Table) 12/27/23 21:30 Stool Culture - Final Stool 12/27/23 10:20 Blood Culture - Preliminary Blood Assessment and Plan Assessment: Right leg cellulitis Myelodysplastic syndrome on chemotherapy with resultant pancytopenia Acute kidney injury secondary to anemia 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 Continue same treatment. Continue with symptomatic treatment. Resume home medication. Monitor labs and vitals. DVT and GI prophylaxis. Further recommendations as per clinical course of the patient DVT prophylaxis: Subcutaneous Lovenox GI Prophylaxis: Pepcid PT/OT: Pending Prognosis is guarded
[2023-12-31 20:15] LABS: Glucose,Whole Blood 240 mg/dL (70-110)
[2023-12-31] MEDS: ENOXAPARIN 30 MG/0.3 ML SYRINGE SQ SCH (21:08)
[2024-01-01 07:08] LABS: Glucose,Whole Blood 99 mg/dL (70-110)
[2024-01-01 11:01] LABS: ALT 95 U/L (8-49); AST 128 U/L (13-35); Albumin 2.7 g/dL (3.8-4.9); Albumin/Globulin Ratio 1.23 Ratio (1.60-3.17); Alkaline Phosphatase 798 U/L (41-126); BUN/Creat Ratio 30.59 Ratio (12.00-20.00); Calcium 7.4 mg/dL (8.7-10.3); Carbon Dioxide 20.6 mmol/L (21.6-31.8); Chloride 105 mmol/L (96-109); Globulin 2.2 g/dL (1.6-3.3); Glucose 109 mg/dL (70-110); Potassium 4.2 mmol/L (3.5-5.5); Sodium 134 mmol/L (135-145); Total Bilirubin 0.5 mg/dL (0.3-1.2); Total Protein 4.9 g/dL (6.2-8.2)
--- NOTE | 2024-01-01 11:30 | P.PN ---
Subjective Patient is seen in follow-up for acute kidney injury. Renal function little better. Has Ulrich catheter. Nonoliguric. On IV Lasix. Vital signs are stable. General: No acute distress. HEENT: Head exam is unremarkable. LUNGS: No audible rhonchi or wheezes. HEART: Rate and Rhythm are regular. ABDOMEN: Nontender. EXTREMITITES: Lower extremities wrapped. 1+ edema. No drainage. Objective - Vital Signs Vital signs: Vital Signs Temp 97.8 F 01/01/24 07:03 Pulse 70 01/01/24 07:03 Resp 16 01/01/24 07:03 BP 121/53 01/01/24 07:03 Pulse Ox 98 01/01/24 07:03 FiO2 Intake & Output 12/31/23 01/01/24 01/01/24 18:59 06:59 18:59 Intake Total 240 Output Total 800 1200 Balance -800 -960 Intake: Oral 240 Output: Urine 800 1200 Other: Voiding Method Indwelling Catheter Indwelling Catheter Indwelling Catheter - Labs CBC & Chem 7: 12/31/23 09:28 01/01/24 05:06 Labs: Abnormal Lab Results - Last 24 Hours (Table) 12/31/23 12/31/23 12/31/23 Range/Units 11:57 17:13 20:13 Sodium (135-145) mmol/L Carbon Dioxide (21.6-31.8) mmol/L BUN (9.0-27.0) mg/dL Creatinine (0.6-1.5) mg/dL Est GFR (CKD-EPI) (>=60) BUN/Creatinine Ratio (12.00-20.00) Ratio POC Glucose (mg/dL) 226 H 219 H 240 H (70-110) mg/dL Calcium (8.7-10.3) mg/dL AST (13-35) U/L ALT (8-49) U/L Alkaline Phosphatase (41-126) U/L Total Protein (6.2-8.2) g/dL Albumin (3.8-4.9) g/dL Albumin/Globulin Ratio (1.60-3.17) Ratio 01/01/24 Range/Units 05:06 Sodium 134 L (135-145) mmol/L Carbon Dioxide 20.6 L (21.6-31.8) mmol/L BUN 52.0 H (9.0-27.0) mg/dL Creatinine 1.7 H (0.6-1.5) mg/dL Est GFR (CKD-EPI) 39 L (>=60) BUN/Creatinine Ratio 30.59 H (12.00-20.00) Ratio POC Glucose (mg/dL) (70-110) mg/dL Calcium 7.4 L (8.7-10.3) mg/dL AST 128 H (13-35) U/L ALT 95 H (8-49) U/L Alkaline Phosphatase 798 H (41-126) U/L Total Protein 4.9 L (6.2-8.2) g/dL Albumin 2.7 L (3.8-4.9) g/dL Albumin/Globulin Ratio 1.23 L (1.60-3.17) Ratio Microbiology - Last 24 Hours (Table) 12/27/23 14:19 Anaerobic Culture - Final Leg - Left Assessment and Plan Plan: Assessment: 1. Acute kidney injury secondary to ATN secondary to anemia. Creatinine 1.1 in May 2023. Renal function better. Creatinine 1.7. Nonoliguric. No hyd ronephrosis noted on kidney ultrasound. UA fairly benign. No hydronephrosis noted on kidney ultrasound. 2. Lower extremity cellulitis on antibiotics. Wound culture positive for staph. 3. MDS maintained on chemotherapy. Status post blood transfusion this admission. Also received IV DDAVP. Oncology following. 4. Benign hypertension. Controlled. 5. Diabetes mellitus. 6. Lower extremity edema. Improving with diuresis. 7. Hypervolemic hyponatremia. Better with diuresis. 8. Metabolic acidosis secondary to acute kidney injury status post bicarb drip. Improved. Plan: Maintain IV Lasix. Encouraged oral intake. Avoid nephrotoxins. Continue to monitor renal function and urine output. Hold amlodipine for systolic blood pressure less than 120.
--- NOTE | 2024-01-01 11:51 | P.PN ---
Subjective 83-year-old male patient with past medical history significant for MDS currently on chemotherapy, diabetes mellitus, hypertension, hyperlipidemia, thyroid disorder, history of BPH, history of macular degeneration who presented to ED with a complaint of right lower extremity swelling, redness, tenderness and pain for 2 weeks. Patient denied any fever or chills. Patient stated that he is unsure but he might have bumped his leg while getting out of the car about 2 weeks ago and started to notice more swelling, redness and pain in the right leg since then. Patient also complaining of loose stools and abdominal distention, denied any abdominal pain. Patient stated that he has chronic lower extremity swelling and takes Lasix for that but right leg has been more swollen and red for last 2 weeks. Patient denied any headache, sore throat, productive cough, chest pain, palpitation, shortness of breath, nausea vomiting abdominal pain dysuria urgency frequency weakness or numbness of the extremities. In the ED patient was afebrile, heart rate 88, respiratory rate 16, blood pressure 131/58, saturating 100% on room air. WBC is 1.8, hemoglobin 7.4, platelet 109. Sodium 132, potassium 4.6, BUN 56, creatinine 2.27, lactic acid 1.9. 12/28/2023--patient was seen and examined today. Patient's hemoglobin dropped to 6.2 today, WBCs 1.4, platelets 72. 1 unit of irradiated packed RBCs ordered. BUN is 60, creatinine 2.3. Nephrology consulted and following. Hematology following. Patient currently on daptomycin per infectious disease. Ultrasound venous was negative for DVT. 12/29/2023--patient was seen and examined today. Remained afebrile, vital stable. WBCs 1.45, hemoglobin 6.8, platelets 73. 1 unit of elevated packed RBCs ordered per hematology. Creatinine trended down to 2.0 today as compared to 2.3. Nephrology following, required straight cath twice, creatinine is 2.3. Patient remains on daptomycin for lower extremity cellulitis, pulmonary following. Given 1 dose of IV Lasix per nephrology. 12/30/23--seen examined today. Remained afebrile, vital stable. Currently has Ulrich catheter, nephrology following, renal function stable. Nephrology recommended to continue bicarbonate drip for now, given Lasix 40 mg once today. Recommended to hold amlodipine for SBP less than 120. Patient was previously on daptomycin, wound culture grew MSSA, antibiotic changed to cefazolin per infectious disease. Currently stable 7.4. WBCs 1.8, platelets 64. BUN patient is 60, creatinine 2.0. 12/30 Patient still with significant right leg cellulitis with redness swelling pain from. IV fluid was discontinued and patient was started on IV Lasix 40 mg twice daily He continued with antibiotics cefazolin with plan to switch to oral Keflex upon discharge Patient has a Ulrich catheter Patient expected to go home upon discharge however we will follow-up with physical therapy evaluation 12/31 Patient right leg cellulitis improving slowly and gradually while he remains on cefazolin. Patient has evidence of slightly worsening liver enzymes. Could be secondary to cefazolin. However it is mild and we will keep monitoring. Patient with no right upper quadrant pain or tenderness or nausea vomiting His leg swelling is also improving slowly and gradually while he remains on IV Lasix. If liver enzymes continue to worsen may consider switching him to oral Keflex or other antibiotic Objective - Vital Signs Vital signs: Vital Signs Temp 97.8 F 01/01/24 07:03 Pulse 70 01/01/24 07:03 Resp 16 01/01/24 07:03 BP 121/53 01/01/24 07:03 Pulse Ox 98 01/01/24 07:03 FiO2 Intake & Output 12/31/23 01/01/24 01/01/24 18:59 06:59 18:59 Intake Total 240 Output Total 800 1200 Balance -800 -960 Intake: Oral 240 Output: Urine 800 1200 Other: Voiding Method Indwelling Catheter Indwelling Catheter Indwelling Catheter - Exam GENERAL: The patient is alert and oriented x3, not in any acute distress. Well developed, well nourished. HEENT: Pupils are round and equally reacting to light. EOMI. No scleral icterus. No conjunctival pallor. Normocephalic, atraumatic. No pharyngeal erythema. No thyromegaly. CARDIOVASCULAR: S1 and S2 present. No murmurs, rubs, or gallops. PULMONARY: Chest is clear to auscultation, no wheezing , no crackles. ABDOMEN: Soft, nontender, nondistended, normoactive bowel sounds. No palpable organomegaly. MUSCULOSKELETAL: No joint swelling or deformity. -EXTREMITIES: No cyanosis, clubbing, or pedal edema. Right leg swelling pink and mild tender NEUROLOGICAL: Gross neurological examination did not reveal any focal deficits. SKIN: No rashes. no petechiae. - Labs CBC & Chem 7: 12/31/23 09:28 01/01/24 05:06 Labs: Abnormal Lab Results - Last 24 Hours (Table) 12/31/23 12/31/23 12/31/23 Range/Units 11:57 17:13 20:13 Sodium (135-145) mmol/L Carbon Dioxide (21.6-31.8) mmol/L BUN (9.0-27.0) mg/dL Creatinine (0.6-1.5) mg/dL Est GFR (CKD-EPI) (>=60) BUN/Creatinine Ratio (12.00-20.00) Ratio POC Glucose (mg/dL) 226 H 219 H 240 H (70-110) mg/dL Calcium (8.7-10.3) mg/dL AST (13-35) U/L ALT (8-49) U/L Alkaline Phosphatase (41-126) U/L Total Protein (6.2-8.2) g/dL Albumin (3.8-4.9) g/dL Albumin/Globulin Ratio (1.60-3.17) Ratio 01/01/24 Range/Units 05:06 Sodium 134 L (135-145) mmol/L Carbon Dioxide 20.6 L (21.6-31.8) mmol/L BUN 52.0 H (9.0-27.0) mg/dL Creatinine 1.7 H (0.6-1.5) mg/dL Est GFR (CKD-EPI) 39 L (>=60) BUN/Creatinine Ratio 30.59 H (12.00-20.00) Ratio POC Glucose (mg/dL) (70-110) mg/dL Calcium 7.4 L (8.7-10.3) mg/dL AST 128 H (13-35) U/L ALT 95 H (8-49) U/L Alkaline Phosphatase 798 H (41-126) U/L Total Protein 4.9 L (6.2-8.2) g/dL Albumin 2.7 L (3.8-4.9) g/dL Albumin/Globulin Ratio 1.23 L (1.60-3.17) Ratio Microbiology - Last 24 Hours (Table) 12/27/23 14:19 Anaerobic Culture - Final Leg - Left Assessment and Plan Assessment: Right leg cellulitis Bilateral leg swelling/edema Myelodysplastic syndrome on chemotherapy with resultant pancytopenia Acute kidney 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 Continue same treatment. Continue with symptomatic treatment. Resume home medication. Monitor labs and vitals. DVT and GI prophylaxis. Further recommendations as per clinical course of the patient DVT prophylaxis: Subcutaneous Lovenox GI Prophylaxis: Pepcid PT/OT: Pending Prognosis is guarded
[2024-01-01 12:29] LABS: Glucose,Whole Blood 237 mg/dL (70-110)
--- NOTE | 2024-01-01 15:02 | P.PN ---
Subjective Progress Note Date: 12/31/23 Principal diagnosis: Reason for follow-up is right lower extremity wound and cellulitis Patient is a 83-year-old male with a past medical history significant for diabetes mellitus hypertension hyperlipidemia osteoarthritis MDS presenting to the hospital for evaluation of right lower extremity swelling and redness follow-up he did have small puncture wound that was cultured and started on antibiotic. On today's evaluation that is 12/31/2023,the patient remains to be afebrile, patient is on room air not requiring supplemental oxygen and denies any shortness of breath no chest pain or cough.Patient denies having any nausea or vomiting, no abdominal pain and no diarrhea has been reported, patient has pain to the right lower extremity. Patient did have white count of 2.8, creatinine is 1.8 Objective - Vital Signs Vital signs: Vital Signs Temp 97.4 F L 12/31/23 11:55 Pulse 81 12/31/23 11:55 Resp 18 12/31/23 07:08 BP 126/65 12/31/23 11:55 Pulse Ox 98 12/31/23 11:55 FiO2 Intake & Output 12/30/23 12/31/23 12/31/23 18:59 06:59 18:59 Output Total 1400 400 Balance -1400 -400 Output: Urine 1400 400 Other: Voiding Method Indwelling Catheter Indwelling Catheter Indwelling Catheter - Exam GENERAL DESCRIPTION: An elderly male lying in bed in no distress RESPIRATORY SYSTEM: Unlabored breathing , decreased breath sounds at bases HEART: S1 S2 regular rate and rhythm , ABDOMEN: Soft , no tenderness EXTREMITIES: Right leg swelling redness slightly decreased in intensity no drainage - Labs CBC & Chem 7: 12/31/23 09:28 01/01/24 05:06 Labs: Abnormal Lab Results - Last 24 Hours (Table) 12/30/23 12/30/23 12/31/23 Range/Units 16:56 20:15 05:45 WBC (3.8-10.6) k/uL RBC (4.30-5.90) m/uL Hgb (13.0-17.5) gm/dL Hct (39.0-53.0) % MCV (80.0-100.0) fL MCH (25.0-35.0) pg RDW (11.5-15.5) % Plt Count (150-450) k/uL Lymphocytes # (Manual) (1.0-4.8) k/uL Macrocytosis Sodium 132 L (135-145) mmol/L Carbon Dioxide 19.0 L (21.6-31.8) mmol/L BUN 56.0 H (9.0-27.0) mg/dL Creatinine 1.8 H (0.6-1.5) mg/dL Est GFR (CKD-EPI) 37 L (>=60) BUN/Creatinine Ratio 31.11 H (12.00-20.00) Ratio Glucose 162 H (70-110) mg/dL POC Glucose (mg/dL) 241 H 174 H (70-110) mg/dL Calcium 7.3 L (8.7-10.3) mg/dL 12/31/23 12/31/23 12/31/23 Range/Units 07:11 09:28 11:57 WBC 2.8 L (3.8-10.6) k/uL RBC 2.56 L (4.30-5.90) m/uL Hgb 9.2 L D (13.0-17.5) gm/dL Hct 27.9 L (39.0-53.0) % MCV 109.3 H D (80.0-100.0) fL MCH 36.1 H (25.0-35.0) pg RDW 21.1 H (11.5-15.5) % Plt Count 107 L (150-450) k/uL Lymphocytes # (Manual) 0.36 L (1.0-4.8) k/uL Macrocytosis Marked A Sodium (135-145) mmol/L Carbon Dioxide (21.6-31.8) mmol/L BUN (9.0-27.0) mg/dL Creatinine (0.6-1.5) mg/dL Est GFR (CKD-EPI) (>=60) BUN/Creatinine Ratio (12.00-20.00) Ratio Glucose (70-110) mg/dL POC Glucose (mg/dL) 151 H 226 H (70-110) mg/dL Calcium (8.7-10.3) mg/dL Microbiology - Last 24 Hours (Table) 12/27/23 21:30 Stool Culture - Final Stool 12/27/23 10:20 Blood Culture - Preliminary Blood Assessment and Plan (1) Cellulitis of right leg Current Visit: Yes Status: Acute Priority: High Code(s): L03.115 - CELLULITIS OF RIGHT LOWER LIMB SNOMED Code(s): 53361461121394605 (2) MSSA (methicillin susceptible Staphylococcus aureus) infection Current Visit: Yes Status: Acute Code(s): A49.01 - METHICILLIN SUSCEP STAPH INFECTION, UNSP SITE SNOMED Code(s): 273919169 Plan: 1patient presented to hospital with a left lower extremity pain swelling and redness in this patient who did have a small wound with some purulent drainage has been culture with surrounding cellulitis likely from gram-positive skin seda such as staph/strep. 2patient with renal insufficiency high risk of nephrotoxicity. 3patient to continue local wound care with Aquacel silver dressing to the left leg wound, patient needs Anthony wrap which has not been compliant with her discussed again with the nursing staff 4patient local culture has been finalized with MSSA 5patient to continue with the cefazolin while inpatient dose has been adjusted down by the pharmacy to the kidney function Dictation was produced using [employer] dictation software. please excuse any grammatical, word or spelling errors. Time with Patient: Less than 30
--- NOTE | 2024-01-01 15:03 | P.PN ---
Subjective Progress Note Date: 01/01/24 Principal diagnosis: Reason for follow-up is right lower extremity wound and cellulitis Patient is a 83-year-old male with a past medical history significant for diabetes mellitus hypertension hyperlipidemia osteoarthritis MDS presenting to the hospital for evaluation of right lower extremity swelling and redness follow-up he did have small puncture wound that was cultured and started on antibiotic. On today's evaluation that is 01/01/2024, the patient continues to be afebrile, the patient is on room air and breathing comfortably, the Pt denies having any chest pain or cough, the patient denies having any abdominal pain no vomiting or any diarrhea has been reported by the nursing staff, patient complaining of swelling to the right lower extremity pain has decreased in intensity. No CBC was done today his creatinine is 1.7 Objective - Vital Signs Vital signs: Vital Signs Temp 98.0 F 01/01/24 12:14 Pulse 84 01/01/24 12:14 Resp 16 01/01/24 12:14 BP 127/62 01/01/24 12:14 Pulse Ox 99 01/01/24 12:14 FiO2 Intake & Output 12/31/23 01/01/24 01/01/24 18:59 06:59 18:59 Intake Total 240 120 Output Total 800 1200 Balance -800 -960 120 Intake: Oral 240 120 Output: Urine 800 1200 Other: Voiding Method Indwelling Catheter Indwelling Catheter Indwelling Catheter - Exam GENERAL DESCRIPTION: An elderly male lying in bed in no distress RESPIRATORY SYSTEM: Unlabored breathing , decreased breath sounds at bases HEART: S1 S2 regular rate and rhythm , ABDOMEN: Soft , no tenderness EXTREMITIES: Right leg swelling redness slightly decreased in intensity no drainage - Labs CBC & Chem 7: 12/31/23 09:28 01/01/24 05:06 Labs: Abnormal Lab Results - Last 24 Hours (Table) 12/31/23 12/31/23 01/01/24 Range/Units 17:13 20:13 05:06 Sodium 134 L (135-145) mmol/L Carbon Dioxide 20.6 L (21.6-31.8) mmol/L BUN 52.0 H (9.0-27.0) mg/dL Creatinine 1.7 H (0.6-1.5) mg/dL Est GFR (CKD-EPI) 39 L (>=60) BUN/Creatinine Ratio 30.59 H (12.00-20.00) Ratio POC Glucose (mg/dL) 219 H 240 H (70-110) mg/dL Calcium 7.4 L (8.7-10.3) mg/dL AST 128 H (13-35) U/L ALT 95 H (8-49) U/L Alkaline Phosphatase 798 H (41-126) U/L Total Protein 4.9 L (6.2-8.2) g/dL Albumin 2.7 L (3.8-4.9) g/dL Albumin/Globulin Ratio 1.23 L (1.60-3.17) Ratio 01/01/24 Range/Units 12:17 Sodium (135-145) mmol/L Carbon Dioxide (21.6-31.8) mmol/L BUN (9.0-27.0) mg/dL Creatinine (0.6-1.5) mg/dL Est GFR (CKD-EPI) (>=60) BUN/Creatinine Ratio (12.00-20.00) Ratio POC Glucose (mg/dL) 237 H (70-110) mg/dL Calcium (8.7-10.3) mg/dL AST (13-35) U/L ALT (8-49) U/L Alkaline Phosphatase (41-126) U/L Total Protein (6.2-8.2) g/dL Albumin (3.8-4.9) g/dL Albumin/Globulin Ratio (1.60-3.17) Ratio Microbiology - Last 24 Hours (Table) 12/27/23 14:19 Anaerobic Culture - Final Leg - Left Assessment and Plan (1) Cellulitis of right leg Current Visit: Yes Status: Acute Priority: High Code(s): L03.115 - CELLULITIS OF RIGHT LOWER LIMB SNOMED Code(s): 61838652104130897 (2) MSSA (methicillin susceptible Staphylococcus aureus) infection Current Visit: Yes Status: Acute Code(s): A49.01 - METHICILLIN SUSCEP STAPH INFECTION, UNSP SITE SNOMED Code(s): 794803351 Plan: 1patient presented to hospital with a left lower extremity pain swelling and redness in this patient who did have a small wound with some purulent drainage has been culture with surrounding cellulitis likely from gram-positive skin seda such as staph/strep. 2patient with renal insufficiency high risk of nephrotoxicity. 3patient local culture has been finalized with MSSA for the patient been covered with the cefazolin 2 g every 12 hours he still have significant swelling to the leg nursing staff has been advised to apply the Anthony wrap to get some of the swelling down and will reevaluate the leg tomorrow to see if he is ready for oral antibiotic on discharge Dictation was produced using [employer] dictation software. please excuse any grammatical, word or spelling errors. Time with Patient: Less than 30
--- NOTE | 2024-01-01 15:06 | P.PN ---
Subjective Progress Note Date: 01/01/24 Principal diagnosis: MDS, cellulitis In f/u today pt reports his RLE swelling is much improved after being wrapped, the left is a little swollen now, he is going to have that wrapped today. Appetite is stable, no fever, N,V. He was able to ambulate with walker in [place] today, the rt leg is metal cut off saw tender, redness and some fluid fill blisters on the anterior ankle. No open lesions or drainage noted. Objective - Vital Signs Vital signs: Vital Signs Temp 98.0 F 01/01/24 12:14 Pulse 84 01/01/24 12:14 Resp 16 01/01/24 12:14 BP 127/62 01/01/24 12:14 Pulse Ox 99 01/01/24 12:14 FiO2 Intake & Output 12/31/23 01/01/24 01/01/24 18:59 06:59 18:59 Intake Total 240 120 Output Total 800 1200 Balance -800 -960 120 Intake: Oral 240 120 Output: Urine 800 1200 Other: Voiding Method Indwelling Catheter Indwelling Catheter Indwelling Catheter - Constitutional General appearance: Present: average body habitus, cooperative, no acute distress - EENT Eyes: Present: anicteric sclerae, EOMI ENT: Present: hearing grossly normal - Respiratory Details: resp even and unlabored - Integumentary Integumentary Comment(s): RLE red, thickened skin, 4 fluid filled blisters distal anterior hoff, skin is not hot to touch, no unusual pain - Neurologic Neurologic: Present: CNII-XII intact - Musculoskeletal Musculoskeletal: Present: generalized weakness - Labs CBC & Chem 7: 12/31/23 09:28 01/01/24 05:06 Labs: Abnormal Lab Results - Last 24 Hours (Table) 12/31/23 12/31/23 01/01/24 Range/Units 17:13 20:13 05:06 Sodium 134 L (135-145) mmol/L Carbon Dioxide 20.6 L (21.6-31.8) mmol/L BUN 52.0 H (9.0-27.0) mg/dL Creatinine 1.7 H (0.6-1.5) mg/dL Est GFR (CKD-EPI) 39 L (>=60) BUN/Creatinine Ratio 30.59 H (12.00-20.00) Ratio POC Glucose (mg/dL) 219 H 240 H (70-110) mg/dL Calcium 7.4 L (8.7-10.3) mg/dL AST 128 H (13-35) U/L ALT 95 H (8-49) U/L Alkaline Phosphatase 798 H (41-126) U/L Total Protein 4.9 L (6.2-8.2) g/dL Albumin 2.7 L (3.8-4.9) g/dL Albumin/Globulin Ratio 1.23 L (1.60-3.17) Ratio 01/01/24 Range/Units 12:17 Sodium (135-145) mmol/L Carbon Dioxide (21.6-31.8) mmol/L BUN (9.0-27.0) mg/dL Creatinine (0.6-1.5) mg/dL Est GFR (CKD-EPI) (>=60) BUN/Creatinine Ratio (12.00-20.00) Ratio POC Glucose (mg/dL) 237 H (70-110) mg/dL Calcium (8.7-10.3) mg/dL AST (13-35) U/L ALT (8-49) U/L Alkaline Phosphatase (41-126) U/L Total Protein (6.2-8.2) g/dL Albumin (3.8-4.9) g/dL Albumin/Globulin Ratio (1.60-3.17) Ratio Microbiology - Last 24 Hours (Table) 12/27/23 14:19 Anaerobic Culture - Final Leg - Left Assessment and Plan (1) Cellulitis of right leg Current Visit: Yes Status: Acute Priority: High Code(s): L03.115 - CELLULITIS OF RIGHT LOWER LIMB SNOMED Code(s): 88706758275171833 (2) MDS (myelodysplastic syndrome) Current Visit: No Status: Chronic Priority: Medium Code(s): D46.9 - MYELODYSPLASTIC SYNDROME, UNSPECIFIED SNOMED Code(s): 359452101 Plan: RLE cellulitis -Pt cut his leg approximately 2 weeks ago, progressive symptoms. -BLE Doppler negative for DVT. -On treatment for cellulitis -Wound cultures presumptive staph, ID following MDS -On treatment with Dacogen, last tx on 11/28/23. Pt is on a treatment holiday -CBC was stable yesterday, will recheck in AM. No fevers, on abx, ID following. -Continue to monitor CBC. Transfuse for hgb less than 7 or if symptomatic. Will follow pt hospital course.
[2024-01-01 17:15] LABS: Glucose,Whole Blood 219 mg/dL (70-110)
[2024-01-01 20:38] LABS: Glucose,Whole Blood 226 mg/dL (70-110)
[2024-01-01] MEDS: ENOXAPARIN 40 MG/0.4 ML SYRINGE SQ SCH (21:38)
[2024-01-02 07:25] LABS: Glucose,Whole Blood 88 mg/dL (70-110)
[2024-01-02 07:26] LABS: Anisocytosis Moderate; HCT 30.8 % (39.0-53.0); HGB 9.6 gm/dL (13.0-17.5); Hypochromasia Marked; MCH 35.4 pg (25.0-35.0); MCHC 31.2 g/dL (31.0-37.0); MCV 113.6 fL (80.0-100.0); Macrocytosis Marked; Mean Platelet Volume 8.4; Platelet Count 111 k/uL (150-450); RBC 2.71 m/uL (4.30-5.90); RDW 20.3 % (11.5-15.5)
[2024-01-02 09:04] LABS: Basophils # (M) 0.04 k/uL (0-0.2); Eosinophils # (M) 0.04 k/uL (0-0.7); Lymphocytes # (M) 1.16 k/uL (1.0-4.8); Neutrophils # (M) 2.56 k/uL (1.3-7.7); Neutrophils % (M) 64 %; Nucleated Red Blood Cells 0 /100 WBC (0-0); Total Cells Counted 100
[2024-01-02 10:58] VITALS: BMI 27.0
[2024-01-02 11:08] LABS: BUN/Creat Ratio 26.39 Ratio (12.00-20.00); Blood Urea Nitrogen 47.5 mg/dL (9.0-27.0); Calcium 7.6 mg/dL (8.7-10.3); Carbon Dioxide 19.7 mmol/L (21.6-31.8); Chloride 103 mmol/L (96-109); Glucose 105 mg/dL (70-110); Potassium 4.5 mmol/L (3.5-5.5); Sodium 133 mmol/L (135-145)
--- NOTE | 2024-01-02 11:27 | P.PN ---
Subjective Patient is seen in follow-up for acute kidney injury. Renal function stable. Has Ulrich catheter. Nonoliguric. On IV Lasix. Vital signs are stable. General: No acute distress. HEENT: Head exam is unremarkable. LUNGS: No audible rhonchi or wheezes. HEART: Rate and Rhythm are regular. ABDOMEN: Nontender. EXTREMITITES: 1+ edema. Chronic changes noted. Objective - Vital Signs Vital signs: Vital Signs Temp 97.6 F 01/02/24 07:18 Pulse 79 01/02/24 07:18 Resp 16 01/02/24 07:18 BP 134/63 01/02/24 07:18 Pulse Ox 98 01/02/24 07:18 FiO2 Intake & Output 01/01/24 01/02/24 01/02/24 18:59 06:59 18:59 Intake Total 170 240 480 Output Total 750 1100 100 Balance -580 -860 380 Weight 90.4 kg 90.4 kg Intake: Intake, IV Titration 50 Amount ceFAZolin 2 gm In Sodium 50 Chloride 0.9% 50 ml @ 100 mls/hr IVPB Q12HR [facility] Rx #:[id number] Oral 120 240 480 Output: Urine 750 1100 100 Uretheral (Ulrich) 100 Other: Voiding Method Indwelling Catheter - Labs CBC & Chem 7: 01/02/24 04:10 01/02/24 04:10 Labs: Abnormal Lab Results - Last 24 Hours (Table) 01/01/24 01/01/24 01/01/24 Range/Units 12:17 17:11 20:35 RBC (4.30-5.90) m/uL Hgb (13.0-17.5) gm/dL Hct (39.0-53.0) % MCV (80.0-100.0) fL MCH (25.0-35.0) pg RDW (11.5-15.5) % Plt Count (150-450) k/uL Macrocytosis Sodium (135-145) mmol/L Carbon Dioxide (21.6-31.8) mmol/L BUN (9.0-27.0) mg/dL Creatinine (0.6-1.5) mg/dL Est GFR (CKD-EPI) (>=60) BUN/Creatinine Ratio (12.00-20.00) Ratio POC Glucose (mg/dL) 237 H 219 H 226 H (70-110) mg/dL Calcium (8.7-10.3) mg/dL 01/02/24 01/02/24 Range/Units 04:10 04:10 RBC 2.71 L (4.30-5.90) m/uL Hgb 9.6 L (13.0-17.5) gm/dL Hct 30.8 L (39.0-53.0) % MCV 113.6 H (80.0-100.0) fL MCH 35.4 H (25.0-35.0) pg RDW 20.3 H (11.5-15.5) % Plt Count 111 L (150-450) k/uL Macrocytosis Marked A Sodium 133 L (135-145) mmol/L Carbon Dioxide 19.7 L (21.6-31.8) mmol/L BUN 47.5 H (9.0-27.0) mg/dL Creatinine 1.8 H (0.6-1.5) mg/dL Est GFR (CKD-EPI) 37 L (>=60) BUN/Creatinine Ratio 26.39 H (12.00-20.00) Ratio POC Glucose (mg/dL) (70-110) mg/dL Calcium 7.6 L (8.7-10.3) mg/dL Microbiology - Last 24 Hours (Table) 12/27/23 10:20 Blood Culture - Final Blood Assessment and Plan Plan: Assessment: 1. Acute kidney injury secondary to ATN secondary to anemia. Creatinine 1.1 in May 2023. Renal function stable with creatinine 1.8 today. Nonoliguric. No hydronephrosis noted on kidney ultrasound. UA fairly benign. No hydronephrosis noted on kidney ultrasound. 2. Lower extremity cellulitis on antibiotics. Wound culture positive for staph. 3. MDS maintained on chemotherapy. Status post blood transfusion this admission. Also received IV DDAVP. Oncology following. 4. Benign hypertension. Controlled. 5. Diabetes mellitus. 6. Lower extremity edema. Improving with diuresis. 7. Hypervolemic hyponatremia. Stable. 8. Metabolic acidosis secondary to acute kidney injury status post bicarb drip. Plan: Decrease IV Lasix frequency to once daily. Add oral bicarb. Encouraged oral intake. Avoid nephrotoxins. Continue to monitor renal function and urine output. Hold amlodipine for systolic blood pressure less than 120.
[2024-01-02 11:29] LABS: Glucose,Whole Blood 153 mg/dL (70-110)
--- NOTE | 2024-01-02 11:30 | P.PN ---
Subjective 83-year-old male patient with past medical history significant for MDS currently on chemotherapy, diabetes mellitus, hypertension, hyperlipidemia, thyroid disorder, history of BPH, history of macular degeneration who presented to ED with a complaint of right lower extremity swelling, redness, tenderness and pain for 2 weeks. Patient denied any fever or chills. Patient stated that he is unsure but he might have bumped his leg while getting out of the car about 2 weeks ago and started to notice more swelling, redness and pain in the right leg since then. Patient also complaining of loose stools and abdominal distention, denied any abdominal pain. Patient stated that he has chronic lower extremity swelling and takes Lasix for that but right leg has been more swollen and red for last 2 weeks. Patient denied any headache, sore throat, productive cough, chest pain, palpitation, shortness of breath, nausea vomiting abdominal pain dysuria urgency frequency weakness or numbness of the extremities. In the ED patient was afebrile, heart rate 88, respiratory rate 16, blood pressure 131/58, saturating 100% on room air. WBC is 1.8, hemoglobin 7.4, platelet 109. Sodium 132, potassium 4.6, BUN 56, creatinine 2.27, lactic acid 1.9. 12/28/2023--patient was seen and examined today. Patient's hemoglobin dropped to 6.2 today, WBCs 1.4, platelets 72. 1 unit of irradiated packed RBCs ordered. BUN is 60, creatinine 2.3. Nephrology consulted and following. Hematology following. Patient currently on daptomycin per infectious disease. Ultrasound venous was negative for DVT. 12/29/2023--patient was seen and examined today. Remained afebrile, vital stable. WBCs 1.45, hemoglobin 6.8, platelets 73. 1 unit of elevated packed RBCs ordered per hematology. Creatinine trended down to 2.0 today as compared to 2.3. Nephrology following, required straight cath twice, creatinine is 2.3. Patient remains on daptomycin for lower extremity cellulitis, pulmonary following. Given 1 dose of IV Lasix per nephrology. 12/30/23--seen examined today. Remained afebrile, vital stable. Currently has Ulrich catheter, nephrology following, renal function stable. Nephrology recommended to continue bicarbonate drip for now, given Lasix 40 mg once today. Recommended to hold amlodipine for SBP less than 120. Patient was previously on daptomycin, wound culture grew MSSA, antibiotic changed to cefazolin per infectious disease. Currently stable 7.4. WBCs 1.8, platelets 64. BUN patient is 60, creatinine 2.0. 12/30 Patient still with significant right leg cellulitis with redness swelling pain from. IV fluid was discontinued and patient was started on IV Lasix 40 mg twice daily He continued with antibiotics cefazolin with plan to switch to oral Keflex upon discharge Patient has a Ulrich catheter Patient expected to go home upon discharge however we will follow-up with physical therapy evaluation 12/31 Patient right leg cellulitis improving slowly and gradually while he remains on cefazolin. Patient has evidence of slightly worsening liver enzymes. Could be secondary to cefazolin. However it is mild and we will keep monitoring. Patient with no right upper quadrant pain or tenderness or nausea vomiting His leg swelling is also improving slowly and gradually while he remains on IV Lasix. If liver enzymes continue to worsen may consider switching him to oral Keflex or other antibiotic 01/01 Patient right leg still red, mildly warm, nontender. Patient states is much better compared to admission. No other new complaint. Creatinine 1.8 today. Hemoglobin 9.2. Creatinine stable at 1.8. Sodium 133. Liver enzymes pending He remains on cefazolin. he Is also on IV Lasix once daily Objective - Vital Signs Vital signs: Vital Signs Temp 97.6 F 01/02/24 07:18 Pulse 79 01/02/24 07:18 Resp 16 01/02/24 07:18 BP 134/63 01/02/24 07:18 Pulse Ox 98 01/02/24 07:18 FiO2 Intake & Output 01/01/24 01/02/24 01/02/24 18:59 06:59 18:59 Intake Total 170 240 480 Output Total 750 1100 100 Balance -580 -860 380 Weight 90.4 kg 90.4 kg Intake: Intake, IV Titration 50 Amount ceFAZolin 2 gm In Sodium 50 Chloride 0.9% 50 ml @ 100 mls/hr IVPB Q12HR [facility] Rx #:[id number] Oral 120 240 480 Output: Urine 750 1100 100 Uretheral (Ulrich) 100 Other: Voiding Method Indwelling Catheter - Exam GENERAL: The patient is alert and oriented x3, not in any acute distress. Well developed, well nourished. HEENT: Pupils are round and equally reacting to light. EOMI. No scleral icterus. No conjunctival pallor. Normocephalic, atraumatic. No pharyngeal erythema. No thyromegaly. CARDIOVASCULAR: S1 and S2 present. No murmurs, rubs, or gallops. PULMONARY: Chest is clear to auscultation, no wheezing , no crackles. ABDOMEN: Soft, nontender, nondistended, normoactive bowel sounds. No palpable organomegaly. MUSCULOSKELETAL: No joint swelling or deformity. -EXTREMITIES: No cyanosis, clubbing, or pedal edema. Right leg swelling pink and mild tender NEUROLOGICAL: Gross neurological examination did not reveal any focal deficits. SKIN: No rashes. no petechiae. - Labs CBC & Chem 7: 01/02/24 04:10 01/02/24 04:10 Labs: Abnormal Lab Results - Last 24 Hours (Table) 01/01/24 01/01/24 01/01/24 Range/Units 12:17 17:11 20:35 RBC (4.30-5.90) m/uL Hgb (13.0-17.5) gm/dL Hct (39.0-53.0) % MCV (80.0-100.0) fL MCH (25.0-35.0) pg RDW (11.5-15.5) % Plt Count (150-450) k/uL Macrocytosis Sodium (135-145) mmol/L Carbon Dioxide (21.6-31.8) mmol/L BUN (9.0-27.0) mg/dL Creatinine (0.6-1.5) mg/dL Est GFR (CKD-EPI) (>=60) BUN/Creatinine Ratio (12.00-20.00) Ratio POC Glucose (mg/dL) 237 H 219 H 226 H (70-110) mg/dL Calcium (8.7-10.3) mg/dL 01/02/24 01/02/24 Range/Units 04:10 04:10 RBC 2.71 L (4.30-5.90) m/uL Hgb 9.6 L (13.0-17.5) gm/dL Hct 30.8 L (39.0-53.0) % MCV 113.6 H (80.0-100.0) fL MCH 35.4 H (25.0-35.0) pg RDW 20.3 H (11.5-15.5) % Plt Count 111 L (150-450) k/uL Macrocytosis Marked A Sodium 133 L (135-145) mmol/L Carbon Dioxide 19.7 L (21.6-31.8) mmol/L BUN 47.5 H (9.0-27.0) mg/dL Creatinine 1.8 H (0.6-1.5) mg/dL Est GFR (CKD-EPI) 37 L (>=60) BUN/Creatinine Ratio 26.39 H (12.00-20.00) Ratio POC Glucose (mg/dL) (70-110) mg/dL Calcium 7.6 L (8.7-10.3) mg/dL Microbiology - Last 24 Hours (Table) 12/27/23 10:20 Blood Culture - Final Blood Assessment and Plan Assessment: Right leg cellulitis Bilateral leg swelling/edema Myelodysplastic syndrome on chemotherapy with resultant pancytopenia Acute kidney 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 Continue same treatment. Continue with symptomatic treatment. Resume home medication. Monitor labs and vitals. DVT and GI prophylaxis. Further recommendations as per clinical course of the patient DVT prophylaxis: Subcutaneous Lovenox GI Prophylaxis: Pepcid PT/OT: Pending Prognosis is guarded
[2024-01-02 12:45] LABS: Albumin 2.7 g/dL (3.5-5.0); Bilirubin,Unconjugated 0.5 mg/dL (0.0-1.1); Globulin 2.8 g/dL; Total Bilirubin 0.9 mg/dL (0.2-1.3); Total Protein 5.5 g/dL (6.3-8.2)
[2024-01-02] MEDS: SODIUM BICARBONATE TAB 650 MG TAB PO SCH (13:27)
--- NOTE | 2024-01-02 15:03 | P.PN ---
Subjective Progress Note Date: 01/02/24 Principal diagnosis: Reason for follow-up is right lower extremity wound and cellulitis Patient is a 83-year-old male with a past medical history significant for diabetes mellitus hypertension hyperlipidemia osteoarthritis MDS presenting to the hospital for evaluation of right lower extremity swelling and redness follow-up he did have small puncture wound that was cultured and started on antibiotic. On today's evaluation that is 01/02/2024, Patient is afebrile patient is currently on room air and denies having any shortness of breath, the patient denies any chest pain or cough, the patient denies any nausea vomiting did not have any abdominal pain and no diarrhea pain swelling to the right leg is slightly decreased in intensity. Patient white count is 4.0, creatinine is 1.8 Objective - Vital Signs Vital signs: Vital Signs Temp 97.6 F 01/02/24 07:18 Pulse 79 01/02/24 07:18 Resp 16 01/02/24 07:18 BP 134/63 01/02/24 07:18 Pulse Ox 98 01/02/24 07:18 FiO2 Intake & Output 01/01/24 01/02/24 01/02/24 18:59 06:59 18:59 Intake Total 170 240 480 Output Total 750 1100 100 Balance -580 -860 380 Weight 90.4 kg 90.4 kg Intake: Intake, IV Titration 50 Amount ceFAZolin 2 gm In Sodium 50 Chloride 0.9% 50 ml @ 100 mls/hr IVPB Q12HR [facility] Rx #:[id number] Oral 120 240 480 Output: Urine 750 1100 100 Uretheral (Ulrich) 100 Other: Voiding Method Indwelling Catheter Indwelling Catheter - Exam GENERAL DESCRIPTION: An elderly male lying in bed in no distress RESPIRATORY SYSTEM: Unlabored breathing , decreased breath sounds at bases HEART: S1 S2 regular rate and rhythm , ABDOMEN: Soft , no tenderness EXTREMITIES: Right leg swelling redness slightly decreased in intensity no drainage - Labs CBC & Chem 7: 01/02/24 04:10 01/02/24 04:10 Labs: Abnormal Lab Results - Last 24 Hours (Table) 01/01/24 01/01/24 01/01/24 Range/Units 12:17 17:11 20:35 RBC (4.30-5.90) m/uL Hgb (13.0-17.5) gm/dL Hct (39.0-53.0) % MCV (80.0-100.0) fL MCH (25.0-35.0) pg RDW (11.5-15.5) % Plt Count (150-450) k/uL Macrocytosis Sodium (135-145) mmol/L Carbon Dioxide (21.6-31.8) mmol/L BUN (9.0-27.0) mg/dL Creatinine (0.6-1.5) mg/dL Est GFR (CKD-EPI) (>=60) BUN/Creatinine Ratio (12.00-20.00) Ratio POC Glucose (mg/dL) 237 H 219 H 226 H (70-110) mg/dL Calcium (8.7-10.3) mg/dL 01/02/24 01/02/24 01/02/24 Range/Units 04:10 04:10 11:28 RBC 2.71 L (4.30-5.90) m/uL Hgb 9.6 L (13.0-17.5) gm/dL Hct 30.8 L (39.0-53.0) % MCV 113.6 H (80.0-100.0) fL MCH 35.4 H (25.0-35.0) pg RDW 20.3 H (11.5-15.5) % Plt Count 111 L (150-450) k/uL Macrocytosis Marked A Sodium 133 L (135-145) mmol/L Carbon Dioxide 19.7 L (21.6-31.8) mmol/L BUN 47.5 H (9.0-27.0) mg/dL Creatinine 1.8 H (0.6-1.5) mg/dL Est GFR (CKD-EPI) 37 L (>=60) BUN/Creatinine Ratio 26.39 H (12.00-20.00) Ratio POC Glucose (mg/dL) 153 H (70-110) mg/dL Calcium 7.6 L (8.7-10.3) mg/dL Microbiology - Last 24 Hours (Table) 12/27/23 10:20 Blood Culture - Final Blood Assessment and Plan (1) Cellulitis of right leg Current Visit: Yes Status: Acute Priority: High Code(s): L03.115 - CELLULITIS OF RIGHT LOWER LIMB SNOMED Code(s): 36636267666512735 (2) MSSA (methicillin susceptible Staphylococcus aureus) infection Current Visit: Yes Status: Acute Code(s): A49.01 - METHICILLIN SUSCEP STAPH INFECTION, UNSP SITE SNOMED Code(s): 281851548 Plan: 1patient presented to hospital with a left lower extremity pain swelling and redness in this patient who did have a small wound with some purulent drainage has been culture with surrounding cellulitis likely from gram-positive skin seda such as staph/strep. 2patient with renal insufficiency high risk of nephrotoxicity. 3patient local culture has been finalized with MSSA for the patient been covered with the cefazolin 2 g every 12 hours advised to continue with the compression start to keep some of the swelling down we will be able to finish therapy with oral Keflex Dictation was produced using [email or web address] dictation software. please excuse any grammatical, word or spelling errors. Time with Patient: Less than 30
[2024-01-02 17:20] LABS: Glucose,Whole Blood 249 mg/dL (70-110)
[2024-01-02 20:13] LABS: Glucose,Whole Blood 311 mg/dL (70-110)
[2024-01-03 07:09] LABS: Glucose,Whole Blood 91 mg/dL (70-110)
--- NOTE | 2024-01-03 08:55 | P.PN ---
Subjective Progress Note Date: 01/02/24 No acute events. Counts improving, Hgb 9.6, WBC 4.0, plt 111. Pt afebrile. Continues on IV abx Objective - Vital Signs Vital signs: Vital Signs Temp 97.9 F 01/02/24 13:05 Pulse 81 01/02/24 13:05 Resp 16 01/02/24 13:05 BP 144/69 01/02/24 13:05 Pulse Ox 98 01/02/24 13:05 FiO2 Intake & Output 01/01/24 01/02/24 01/02/24 18:59 06:59 18:59 Intake Total 170 240 480 Output Total 750 1100 100 Balance -580 -860 380 Weight 90.4 kg 90.4 kg Intake: Intake, IV Titration 50 Amount ceFAZolin 2 gm In Sodium 50 Chloride 0.9% 50 ml @ 100 mls/hr IVPB Q12HR [facility] Rx #:[id number] Oral 120 240 480 Output: Urine 750 1100 100 Uretheral (Ulrich) 100 Other: Voiding Method Indwelling Catheter Indwelling Catheter - Constitutional General appearance: Present: no acute distress - EENT Eyes: Present: anicteric sclerae, EOMI ENT: Present: hearing grossly normal - Respiratory Details: breathing is even and unlabored - Integumentary Integumentary Comment(s): significant erythema to RLE - Musculoskeletal Musculoskeletal: Present: strength equal bilaterally - Psychiatric Psychiatric: Present: A&O x's 3 - Labs CBC & Chem 7: 01/02/24 04:10 01/02/24 04:10 Labs: Abnormal Lab Results - Last 24 Hours (Table) 01/01/24 01/01/24 01/02/24 Range/Units 17:11 20:35 04:10 RBC (4.30-5.90) m/uL Hgb (13.0-17.5) gm/dL Hct (39.0-53.0) % MCV (80.0-100.0) fL MCH (25.0-35.0) pg RDW (11.5-15.5) % Plt Count (150-450) k/uL Macrocytosis Sodium 133 L (135-145) mmol/L Carbon Dioxide 19.7 L (21.6-31.8) mmol/L BUN 47.5 H (9.0-27.0) mg/dL Creatinine 1.8 H (0.6-1.5) mg/dL Est GFR (CKD-EPI) 37 L (>=60) BUN/Creatinine Ratio 26.39 H (12.00-20.00) Ratio POC Glucose (mg/dL) 219 H 226 H (70-110) mg/dL Calcium 7.6 L (8.7-10.3) mg/dL AST (17-59) U/L Alkaline Phosphatase (38-126) U/L Total Protein (6.3-8.2) g/dL Albumin (3.5-5.0) g/dL 01/02/24 01/02/24 01/02/24 Range/Units 04:10 11:28 11:33 RBC 2.71 L (4.30-5.90) m/uL Hgb 9.6 L (13.0-17.5) gm/dL Hct 30.8 L (39.0-53.0) % MCV 113.6 H (80.0-100.0) fL MCH 35.4 H (25.0-35.0) pg RDW 20.3 H (11.5-15.5) % Plt Count 111 L (150-450) k/uL Macrocytosis Marked A Sodium (135-145) mmol/L Carbon Dioxide (21.6-31.8) mmol/L BUN (9.0-27.0) mg/dL Creatinine (0.6-1.5) mg/dL Est GFR (CKD-EPI) (>=60) BUN/Creatinine Ratio (12.00-20.00) Ratio POC Glucose (mg/dL) 153 H (70-110) mg/dL Calcium (8.7-10.3) mg/dL AST 103 H (17-59) U/L Alkaline Phosphatase 772 H (38-126) U/L Total Protein 5.5 L (6.3-8.2) g/dL Albumin 2.7 L (3.5-5.0) g/dL Microbiology - Last 24 Hours (Table) 12/27/23 10:20 Blood Culture - Final Blood Assessment and Plan (1) MDS (myelodysplastic syndrome) Current Visit: No Status: Chronic Priority: Medium Code(s): D46.9 - MYELODYSPLASTIC SYNDROME, UNSPECIFIED SNOMED Code(s): 862354758 (2) Acute kidney injury Current Visit: Yes Status: Acute Priority: High Code(s): N17.9 - ACUTE KIDNEY FAILURE, UNSPECIFIED SNOMED Code(s): 85180526 (3) Cellulitis Current Visit: Yes Status: Acute Priority: High Code(s): L03.90 - CELLULITIS, UNSPECIFIED SNOMED Code(s): 638325072 Plan: RLE cellulitis -Pt cut his leg approximately 2 weeks ago, progressive symptoms. -BLE Doppler negative for DVT. -On treatment for cellulitis -Wound cultures positive for S. aureus, ID following MDS -On treatment with Dacogen, last tx on 11/28/23. Pt is on a treatment holiday -Counts improving. No fevers, on abx -Continue to monitor CBC. Transfuse for hgb less than 7 or if symptomatic. Will follow pt hospital course. attests: I have seen and examined patient, performed H&P, developed impression and plan of care. Discussed with dictator. Agree with documentation, dictated as a scribe
[2024-01-03] MEDS: FUROSEMIDE 10 MG/ML 4 ML VIAL IV SCH (09:25)
--- NOTE | 2024-01-03 11:14 | P.PN ---
Subjective Patient is seen in follow-up for acute kidney injury. Renal function stable as of yesterday. Has Ulrich catheter. Nonoliguric. On IV Lasix. Vital signs are stable. General: No acute distress. HEENT: Head exam is unremarkable. LUNGS: No audible rhonchi or wheezes. HEART: Rate and Rhythm are regular. ABDOMEN: Nontender. EXTREMITITES: 1+ edema. Chronic changes noted. Objective - Vital Signs Vital signs: Vital Signs Temp 97.6 F 01/03/24 07:10 Pulse 72 01/03/24 08:00 Resp 16 01/03/24 08:00 BP 106/54 01/03/24 07:10 Pulse Ox 99 01/03/24 07:10 FiO2 Intake & Output 01/02/24 01/03/24 01/03/24 18:59 06:59 18:59 Intake Total 720 Output Total 100 450 Balance 620 -450 Weight 90.4 kg 90.3 kg Intake: Oral 720 Output: Urine 100 450 Uretheral (Ulrich) 100 Other: Voiding Method Indwelling Catheter Indwelling Catheter Indwelling Catheter - Labs CBC & Chem 7: 01/02/24 04:10 01/02/24 04:10 Labs: Abnormal Lab Results - Last 24 Hours (Table) 01/02/24 01/02/24 01/02/24 Range/Units 11:28 11:33 17:19 POC Glucose (mg/dL) 153 H 249 H (70-110) mg/dL AST 103 H (17-59) U/L Alkaline Phosphatase 772 H (38-126) U/L Total Protein 5.5 L (6.3-8.2) g/dL Albumin 2.7 L (3.5-5.0) g/dL 01/02/24 Range/Units 20:02 POC Glucose (mg/dL) 311 H (70-110) mg/dL AST (17-59) U/L Alkaline Phosphatase (38-126) U/L Total Protein (6.3-8.2) g/dL Albumin (3.5-5.0) g/dL Assessment and Plan Plan: Assessment: 1. Acute kidney injury secondary to ATN secondary to anemia. Creatinine 1.1 in May 2023. Renal function stable with creatinine 1.8 yesterday. Nonoliguric. No hydronephrosis noted on kidney ultrasound. UA fairly benign. No hydronephrosis noted on kidney ultrasound. 2. Lower extremity cellulitis on antibiotics. Wound culture positive for staph. 3. MDS maintained on chemotherapy. Status post blood transfusion this admission. Also received IV DDAVP. Oncology following. 4. Benign hypertension. Controlled. 5. Diabetes mellitus. 6. Lower extremity edema. Improving with diuresis. 7. Hypervolemic hyponatremia. Stable. 8. Metabolic acidosis secondary to acute kidney injury status post bicarb drip. On oral bicarb now. Plan: Maintain IV Lasix. Encouraged oral intake. Avoid nephrotoxins. Continue to monitor renal function and urine output. Stop amlodipine.
[2024-01-03 11:19] LABS: BUN/Creat Ratio 28.59 Ratio (12.00-20.00); Blood Urea Nitrogen 48.6 mg/dL (9.0-27.0); Calcium 7.3 mg/dL (8.7-10.3); Carbon Dioxide 20.9 mmol/L (21.6-31.8); Chloride 103 mmol/L (96-109); Glucose 86 mg/dL (70-110); Potassium 4.4 mmol/L (3.5-5.5); Sodium 132 mmol/L (135-145)
[2024-01-03 12:05] LABS: Glucose,Whole Blood 244 mg/dL (70-110)
[2024-01-03 17:13] LABS: Glucose,Whole Blood 175 mg/dL (70-110)
[2024-01-03 20:06] LABS: Glucose,Whole Blood 239 mg/dL (70-110)
--- NOTE | 2024-01-04 00:20 | P.PN ---
Subjective 83-year-old male patient with past medical history significant for MDS currently on chemotherapy, diabetes mellitus, hypertension, hyperlipidemia, thyroid disorder, history of BPH, history of macular degeneration who presented to ED with a complaint of right lower extremity swelling, redness, tenderness and pain for 2 weeks. Patient denied any fever or chills. Patient stated that he is unsure but he might have bumped his leg while getting out of the car about 2 weeks ago and started to notice more swelling, redness and pain in the right leg since then. Patient also complaining of loose stools and abdominal distention, denied any abdominal pain. Patient stated that he has chronic lower extremity swelling and takes Lasix for that but right leg has been more swollen and red for last 2 weeks. Patient denied any headache, sore throat, productive cough, chest pain, palpitation, shortness of breath, nausea vomiting abdominal pain dysuria urgency frequency weakness or numbness of the extremities. In the ED patient was afebrile, heart rate 88, respiratory rate 16, blood pressure 131/58, saturating 100% on room air. WBC is 1.8, hemoglobin 7.4, platelet 109. Sodium 132, potassium 4.6, BUN 56, creatinine 2.27, lactic acid 1.9. 12/28/2023--patient was seen and examined today. Patient's hemoglobin dropped to 6.2 today, WBCs 1.4, platelets 72. 1 unit of irradiated packed RBCs ordered. BUN is 60, creatinine 2.3. Nephrology consulted and following. Hematology following. Patient currently on daptomycin per infectious disease. Ultrasound venous was negative for DVT. 12/29/2023--patient was seen and examined today. Remained afebrile, vital stable. WBCs 1.45, hemoglobin 6.8, platelets 73. 1 unit of elevated packed RBCs ordered per hematology. Creatinine trended down to 2.0 today as compared to 2.3. Nephrology following, required straight cath twice, creatinine is 2.3. Patient remains on daptomycin for lower extremity cellulitis, pulmonary following. Given 1 dose of IV Lasix per nephrology. 12/30/23--seen examined today. Remained afebrile, vital stable. Currently has Ulrich catheter, nephrology following, renal function stable. Nephrology recommended to continue bicarbonate drip for now, given Lasix 40 mg once today. Recommended to hold amlodipine for SBP less than 120. Patient was previously on daptomycin, wound culture grew MSSA, antibiotic changed to cefazolin per infectious disease. Currently stable 7.4. WBCs 1.8, platelets 64. BUN patient is 60, creatinine 2.0. 12/30 Patient still with significant right leg cellulitis with redness swelling pain from. IV fluid was discontinued and patient was started on IV Lasix 40 mg twice daily He continued with antibiotics cefazolin with plan to switch to oral Keflex upon discharge Patient has a Ulrich catheter Patient expected to go home upon discharge however we will follow-up with physical therapy evaluation 12/31 Patient right leg cellulitis improving slowly and gradually while he remains on cefazolin. Patient has evidence of slightly worsening liver enzymes. Could be secondary to cefazolin. However it is mild and we will keep monitoring. Patient with no right upper quadrant pain or tenderness or nausea vomiting His leg swelling is also improving slowly and gradually while he remains on IV Lasix. If liver enzymes continue to worsen may consider switching him to oral Keflex or other antibiotic 01/01 Patient right leg still red, mildly warm, nontender. Patient states is much better compared to admission. No other new complaint. Creatinine 1.8 today. Hemoglobin 9.2. Creatinine stable at 1.8. Sodium 133. Liver enzymes pending He remains on cefazolin. he Is also on IV Lasix once daily 01/02 Right leg cellulitis is improving gradually and slowly. Still looks red and warm but regressed in size. He remains on cefazolin He is also on IV Lasix once daily Pancytopenia is stable Creatinine 1.7-1.8 Objective - Vital Signs Vital signs: Vital Signs Temp 97.6 F 01/03/24 07:10 Pulse 72 01/03/24 08:00 Resp 16 01/03/24 08:00 BP 106/54 01/03/24 07:10 Pulse Ox 99 01/03/24 07:10 FiO2 Intake & Output 01/02/24 01/03/24 01/03/24 18:59 06:59 18:59 Intake Total 720 Output Total 100 450 Balance 620 -450 Weight 90.4 kg 90.3 kg Intake: Oral 720 Output: Urine 100 450 Uretheral (Ulrich) 100 Other: Voiding Method Indwelling Catheter Indwelling Catheter Indwelling Catheter - Exam GENERAL: The patient is alert and oriented x3, not in any acute distress. Well developed, well nourished. HEENT: Pupils are round and equally reacting to light. EOMI. No scleral icterus. No conjunctival pallor. Normocephalic, atraumatic. No pharyngeal erythema. No thyromegaly. CARDIOVASCULAR: S1 and S2 present. No murmurs, rubs, or gallops. PULMONARY: Chest is clear to auscultation, no wheezing , no crackles. ABDOMEN: Soft, nontender, nondistended, normoactive bowel sounds. No palpable organomegaly. MUSCULOSKELETAL: No joint swelling or deformity. -EXTREMITIES: No cyanosis, clubbing, or pedal edema. Right leg swelling pink and mild tender NEUROLOGICAL: Gross neurological examination did not reveal any focal deficits. SKIN: No rashes. no petechiae. - Labs CBC & Chem 7: 01/02/24 04:10 01/03/24 05:39 Labs: Abnormal Lab Results - Last 24 Hours (Table) 01/02/24 01/02/24 01/02/24 Range/Units 11:33 17:19 20:02 Sodium (135-145) mmol/L Carbon Dioxide (21.6-31.8) mmol/L BUN (9.0-27.0) mg/dL Creatinine (0.6-1.5) mg/dL Est GFR (CKD-EPI) (>=60) BUN/Creatinine Ratio (12.00-20.00) Ratio POC Glucose (mg/dL) 249 H 311 H (70-110) mg/dL Calcium (8.7-10.3) mg/dL AST 103 H (17-59) U/L Alkaline Phosphatase 772 H (38-126) U/L Total Protein 5.5 L (6.3-8.2) g/dL Albumin 2.7 L (3.5-5.0) g/dL 01/03/24 01/03/24 Range/Units 05:39 12:04 Sodium 132 L (135-145) mmol/L Carbon Dioxide 20.9 L (21.6-31.8) mmol/L BUN 48.6 H (9.0-27.0) mg/dL Creatinine 1.7 H (0.6-1.5) mg/dL Est GFR (CKD-EPI) 39 L (>=60) BUN/Creatinine Ratio 28.59 H (12.00-20.00) Ratio POC Glucose (mg/dL) 244 H (70-110) mg/dL Calcium 7.3 L (8.7-10.3) mg/dL AST (17-59) U/L Alkaline Phosphatase (38-126) U/L Total Protein (6.3-8.2) g/dL Albumin (3.5-5.0) g/dL Assessment and Plan Assessment: Right leg cellulitis Bilateral leg swelling/edema Myelodysplastic syndrome on chemotherapy with resultant pancytopenia Acute kidney injury secondary to anemia 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 Continue same treatment. Continue with sym ptomatic treatment. Resume home medication. Monitor labs and vitals. DVT and GI prophylaxis. Further recommendations as per clinical course of the patient DVT prophylaxis: Subcutaneous Lovenox GI Prophylaxis: Pepcid PT/OT: Pending Prognosis is guarded
[2024-01-04 07:05] LABS: Glucose,Whole Blood 122 mg/dL (70-110)
[2024-01-04 11:27] LABS: BUN/Creat Ratio 26.94 Ratio (12.00-20.00); Blood Urea Nitrogen 48.5 mg/dL (9.0-27.0); Calcium 7.6 mg/dL (8.7-10.3); Chloride 103 mmol/L (96-109); Glucose 110 mg/dL (70-110); Potassium 4.6 mmol/L (3.5-5.5); Sodium 133 mmol/L (135-145)
[2024-01-04 11:53] LABS: Glucose,Whole Blood 178 mg/dL (70-110)
--- NOTE | 2024-01-04 11:53 | P.PN ---
Subjective Patient is seen in follow-up for acute kidney injury. Renal function stable. Has Ulrich catheter. Nonoliguric. On IV Lasix. Oral intake is good. No active complaints. Vital signs are stable. General: No acute distress. HEENT: Head exam is unremarkable. LUNGS: No audible rhonchi or wheezes. HEART: Rate and Rhythm are regular. ABDOMEN: Nontender. EXTREMITITES: 1+ edema. Chronic changes noted. Objective - Vital Signs Vital signs: Vital Signs Temp 98 F 01/04/24 07:02 Pulse 73 01/04/24 08:45 Resp 16 01/04/24 08:45 BP 129/64 01/04/24 07:02 Pulse Ox 97 01/04/24 07:02 FiO2 Intake & Output 01/03/24 01/04/24 01/04/24 18:59 06:59 18:59 Intake Total 1320 240 240 Output Total 700 450 Balance 620 -210 240 Weight 90.7 kg Intake: Oral 1320 240 240 Output: Urine 700 450 Other: Voiding Method Indwelling Catheter Indwelling Catheter Indwelling Catheter # Voids 1 # Bowel Movements 1 1 - Labs CBC & Chem 7: 01/02/24 04:10 01/04/24 06:14 Labs: Abnormal Lab Results - Last 24 Hours (Table) 01/03/24 01/03/24 01/03/24 Range/Units 12:04 17:12 20:00 Sodium (135-145) mmol/L BUN (9.0-27.0) mg/dL Creatinine (0.6-1.5) mg/dL Est GFR (CKD-EPI) (>=60) BUN/Creatinine Ratio (12.00-20.00) Ratio POC Glucose (mg/dL) 244 H 175 H 239 H (70-110) mg/dL Calcium (8.7-10.3) mg/dL 01/04/24 01/04/24 Range/Units 06:14 07:04 Sodium 133 L (135-145) mmol/L BUN 48.5 H (9.0-27.0) mg/dL Creatinine 1.8 H (0.6-1.5) mg/dL Est GFR (CKD-EPI) 37 L (>=60) BUN/Creatinine Ratio 26.94 H (12.00-20.00) Ratio POC Glucose (mg/dL) 122 H (70-110) mg/dL Calcium 7.6 L (8.7-10.3) mg/dL Assessment and Plan Plan: Assessment: 1. Acute kidney injury secondary to ATN secondary to anemia. Creatinine 1.1 in May 2023. Renal function stable with creatinine 1.8. Nonoliguric. No hydronephrosis noted on kidney ultrasound. UA fairly benign. No hydronephrosis noted on kidney ultrasound. 2. Lower extremity cellulitis on antibiotics. Wound culture positive for staph. 3. MDS maintained on chemotherapy. Status post blood transfusion this admission. Also received IV DDAVP. Oncology following. 4. Benign hypertension. Controlled. 5. Diabetes mellitus. 6. Lower extremity edema. Improving with diuresis. 7. Hypervolemic hyponatremia. Stable. 8. Metabolic acidosis secondary to acute kidney injury status post bicarb drip. On oral bicarb now. Better. Plan: Maintain IV Lasix. Encouraged oral intake. Avoid nephrotoxins. Continue to monitor renal function and urine output.
--- NOTE | 2024-01-04 14:22 | P.PN ---
Subjective Progress Note Date: 01/04/24 Principal diagnosis: Reason for follow-up is right lower extremity wound and cellulitis Patient is a 83-year-old male with a past medical history significant for diabetes mellitus hypertension hyperlipidemia osteoarthritis MDS presenting to the hospital for evaluation of right lower extremity swelling and redness follow-up he did have small puncture wound that was cultured and started on antibiotic. On today's evaluation that is 01/04/2024, Patient is afebrile this morning patient denies having any chest pain shortness of breath or cough, the patient is breathing comfortably on room air, patient denies any abdominal pain no diarrhea no nausea no vomiting, patient was able to tolerate Anthony wrap to the right leg denies pain to the right leg and the mentioned that his blister have scabbed off. Patient did have a creatinine 1.8 no CBC was done today Objective - Vital Signs Vital signs: Vital Signs Temp 98.2 F 01/04/24 11:51 Pulse 75 01/04/24 11:51 Resp 16 01/04/24 11:51 BP 115/63 01/04/24 11:51 Pulse Ox 98 01/04/24 11:51 FiO2 Intake & Output 01/03/24 01/04/24 01/04/24 18:59 06:59 18:59 Intake Total 1320 240 240 Output Total 700 450 Balance 620 -210 240 Weight 90.7 kg Intake: Oral 1320 240 240 Output: Urine 700 450 Other: Voiding Method Indwelling Catheter Indwelling Catheter Indwelling Catheter # Voids 1 # Bowel Movements 1 1 - Exam GENERAL DESCRIPTION: An elderly male lying in bed in no distress RESPIRATORY SYSTEM: Unlabored breathing , decreased breath sounds at bases HEART: S1 S2 regular rate and rhythm , ABDOMEN: Soft , no tenderness EXTREMITIES: Right leg swelling redness slightly decreased in intensity no drainage - Labs CBC & Chem 7: 01/02/24 04:10 01/04/24 06:14 Labs: Abnormal Lab Results - Last 24 Hours (Table) 01/03/24 01/03/24 01/04/24 Range/Units 17:12 20:00 06:14 Sodium 133 L (135-145) mmol/L BUN 48.5 H (9.0-27.0) mg/dL Creatinine 1.8 H (0.6-1.5) mg/dL Est GFR (CKD-EPI) 37 L (>=60) BUN/Creatinine Ratio 26.94 H (12.00-20.00) Ratio POC Glucose (mg/dL) 175 H 239 H (70-110) mg/dL Calcium 7.6 L (8.7-10.3) mg/dL 01/04/24 01/04/24 Range/Units 07:04 11:52 Sodium (135-145) mmol/L BUN (9.0-27.0) mg/dL Creatinine (0.6-1.5) mg/dL Est GFR (CKD-EPI) (>=60) BUN/Creatinine Ratio (12.00-20.00) Ratio POC Glucose (mg/dL) 122 H 178 H (70-110) mg/dL Calcium (8.7-10.3) mg/dL Assessment and Plan (1) Cellulitis of right leg Current Visit: Yes Status: Acute Priority: High Code(s): L03.115 - CELLULITIS OF RIGHT LOWER LIMB SNOMED Code(s): 71815918687482499 (2) MSSA (methicillin susceptible Staphylococcus aureus) infection Current Visit: Yes Status: Acute Code(s): A49.01 - METHICILLIN SUSCEP STAPH INFECTION, UNSP SITE SNOMED Code(s): 144276777 Plan: 1patient presented to hospital with a left lower extremity pain swelling and redness in this patient who did have a small wound with some purulent drainage has been culture with surrounding cellulitis likely from gram-positive skin seda such as staph/strep. 2patient local culture has been finalized with MSSA for the patient been covered with the cefazolin 2 g every 12 hours 3-patient overall swelling redness has decreased and the blister has scabbed off as reported by the continue cefazolin finishing therapy with the Keflex Dictation was produced using [employer] dictation software. please excuse any grammatical, word or spelling errors. Time with Patient: Less than 30
--- NOTE | 2024-01-04 14:22 | P.PN ---
Subjective Progress Note Date: 01/03/24 Principal diagnosis: Reason for follow-up is right lower extremity wound and cellulitis Patient is a 83-year-old male with a past medical history significant for diabetes mellitus hypertension hyperlipidemia osteoarthritis MDS presenting to the hospital for evaluation of right lower extremity swelling and redness follow-up he did have small puncture wound that was cultured and started on antibiotic. On today's evaluation that is 01/03/2024, patient has been afebrile, patient is breathing comfortably and is currently on room air, patient denies having any significant cough no chest pain shortness of breath, patient denies nausea vomiting or diarrhea and no abdominal pain, denies pain to the right lower extremity has been concerned about 2 blisters the right lower leg. Patient did have a creatinine 1.7 no CBC was done today Objective - Vital Signs Vital signs: Vital Signs Temp 97.8 F 01/03/24 13:16 Pulse 81 01/03/24 13:16 Resp 16 01/03/24 13:16 BP 124/61 01/03/24 13:16 Pulse Ox 96 01/03/24 13:16 FiO2 Intake & Output 01/02/24 01/03/24 01/03/24 18:59 06:59 18:59 Intake Total 720 Output Total 100 450 Balance 620 -450 Weight 90.4 kg 90.3 kg Intake: Oral 720 Output: Urine 100 450 Uretheral (Ulrich) 100 Other: Voiding Method Indwelling Catheter Indwelling Catheter Indwelling Catheter - Exam GENERAL DESCRIPTION: An elderly male lying in bed in no distress RESPIRATORY SYSTEM: Unlabored breathing , decreased breath sounds at bases HEART: S1 S2 regular rate and rhythm , ABDOMEN: Soft , no tenderness EXTREMITIES: Right leg swelling redness slightly decreased in intensity no drainage - Labs CBC & Chem 7: 01/02/24 04:10 01/04/24 06:14 Labs: Abnormal Lab Results - Last 24 Hours (Table) 01/02/24 01/03/24 01/03/24 Range/Units 20:02 05:39 12:04 Sodium 132 L (135-145) mmol/L Carbon Dioxide 20.9 L (21.6-31.8) mmol/L BUN 48.6 H (9.0-27.0) mg/dL Creatinine 1.7 H (0.6-1.5) mg/dL Est GFR (CKD-EPI) 39 L (>=60) BUN/Creatinine Ratio 28.59 H (12.00-20.00) Ratio POC Glucose (mg/dL) 311 H 244 H (70-110) mg/dL Calcium 7.3 L (8.7-10.3) mg/dL 01/03/24 Range/Units 17:12 Sodium (135-145) mmol/L Carbon Dioxide (21.6-31.8) mmol/L BUN (9.0-27.0) mg/dL Creatinine (0.6-1.5) mg/dL Est GFR (CKD-EPI) (>=60) BUN/Creatinine Ratio (12.00-20.00) Ratio POC Glucose (mg/dL) 175 H (70-110) mg/dL Calcium (8.7-10.3) mg/dL Assessment and Plan (1) Cellulitis of right leg Current Visit: Yes Status: Acute Priority: High Code(s): L03.115 - CELLULITIS OF RIGHT LOWER LIMB SNOMED Code(s): 82246117952595446 (2) MSSA (methicillin susceptible Staphylococcus aureus) infection Current Visit: Yes Status: Acute Code(s): A49.01 - METHICILLIN SUSCEP STAPH INFECTION, UNSP SITE SNOMED Code(s): 425487153 Plan: 1patient presented to hospital with a left lower extremity pain swelling and redness in this patient who did have a small wound with some purulent drainage has been culture with surrounding cellulitis likely from gram-positive skin seda such as staph/strep. 2patient local culture has been finalized with MSSA for the patient been covered with the cefazolin 2 g every 12 hours 3- very concerned about blister more likely due to fluid load and will benefit from application of the Anthony wrap to help get the swelling down Dictation was produced using [employer] dictation software. please excuse any grammatical, word or spelling errors. Time with Patient: Less than 30
[2024-01-04 16:47] LABS: Glucose,Whole Blood 208 mg/dL (70-110)
[2024-01-04 20:08] LABS: Glucose,Whole Blood 187 mg/dL (70-110)
--- NOTE | 2024-01-04 21:53 | P.PN ---
Subjective 83-year-old male patient with past medical history significant for MDS currently on chemotherapy, diabetes mellitus, hypertension, hyperlipidemia, thyroid disorder, history of BPH, history of macular degeneration who presented to ED with a complaint of right lower extremity swelling, redness, tenderness and pain for 2 weeks. Patient denied any fever or chills. Patient stated that he is unsure but he might have bumped his leg while getting out of the car about 2 weeks ago and started to notice more swelling, redness and pain in the right leg since then. Patient also complaining of loose stools and abdominal distention, denied any abdominal pain. Patient stated that he has chronic lower extremity swelling and takes Lasix for that but right leg has been more swollen and red for last 2 weeks. Patient denied any headache, sore throat, productive cough, chest pain, palpitation, shortness of breath, nausea vomiting abdominal pain dysuria urgency frequency weakness or numbness of the extremities. In the ED patient was afebrile, heart rate 88, respiratory rate 16, blood pressure 131/58, saturating 100% on room air. WBC is 1.8, hemoglobin 7.4, platelet 109. Sodium 132, potassium 4.6, BUN 56, creatinine 2.27, lactic acid 1.9. 12/28/2023--patient was seen and examined today. Patient's hemoglobin dropped to 6.2 today, WBCs 1.4, platelets 72. 1 unit of irradiated packed RBCs ordered. BUN is 60, creatinine 2.3. Nephrology consulted and following. Hematology following. Patient currently on daptomycin per infectious disease. Ultrasound venous was negative for DVT. 12/29/2023--patient was seen and examined today. Remained afebrile, vital stable. WBCs 1.45, hemoglobin 6.8, platelets 73. 1 unit of elevated packed RBCs ordered per hematology. Creatinine trended down to 2.0 today as compared to 2.3. Nephrology following, required straight cath twice, creatinine is 2.3. Patient remains on daptomycin for lower extremity cellulitis, pulmonary following. Given 1 dose of IV Lasix per nephrology. 12/30/23--seen examined today. Remained afebrile, vital stable. Currently has Ulrich catheter, nephrology following, renal function stable. Nephrology recommended to continue bicarbonate drip for now, given Lasix 40 mg once today. Recommended to hold amlodipine for SBP less than 120. Patient was previously on daptomycin, wound culture grew MSSA, antibiotic changed to cefazolin per infectious disease. Currently stable 7.4. WBCs 1.8, platelets 64. BUN patient is 60, creatinine 2.0. 12/30 Patient still with significant right leg cellulitis with redness swelling pain from. IV fluid was discontinued and patient was started on IV Lasix 40 mg twice daily He continued with antibiotics cefazolin with plan to switch to oral Keflex upon discharge Patient has a Ulrich catheter Patient expected to go home upon discharge however we will follow-up with physical therapy evaluation 12/31 Patient right leg cellulitis improving slowly and gradually while he remains on cefazolin. Patient has evidence of slightly worsening liver enzymes. Could be secondary to cefazolin. However it is mild and we will keep monitoring. Patient with no right upper quadrant pain or tenderness or nausea vomiting His leg swelling is also improving slowly and gradually while he remains on IV Lasix. If liver enzymes continue to worsen may consider switching him to oral Keflex or other antibiotic 01/01 Patient right leg still red, mildly warm, nontender. Patient states is much better compared to admission. No other new complaint. Creatinine 1.8 today. Hemoglobin 9.2. Creatinine stable at 1.8. Sodium 133. Liver enzymes pending He remains on cefazolin. he Is also on IV Lasix once daily 01/02 Right leg cellulitis is improving gradually and slowly. Still looks red and warm but regressed in size. He remains on cefazolin He is also on IV Lasix once daily Pancytopenia is stable Creatinine 1.7-1.8 01/03 Patient overall is doing well Right leg cellulitis improving, dressing in place, at bedside Possible discharge in 24 to 48 hours Objective - Vital Signs Vital signs: Vital Signs Temp 98.1 F 01/04/24 20:00 Pulse 91 01/04/24 20:00 Resp 16 01/04/24 20:00 BP 169/66 01/04/24 20:00 Pulse Ox 98 01/04/24 20:00 FiO2 Intake & Output 01/04/24 01/04/24 01/05/24 06:59 18:59 06:59 Intake Total 240 480 Output Total 450 850 Balance -210 -370 Weight 90.7 kg Intake: Oral 240 480 Output: Urine 450 850 Other: Voiding Method Indwelling Catheter Indwelling Catheter # Voids 1 # Bowel Movements 1 - Exam GENERAL: The patient is alert and oriented x3, not in any acute distress. Well developed, well nourished. HEENT: Pupils are round and equally reacting to light. EOMI. No scleral icterus. No conjunctival pallor. Normocephalic, atraumatic. No pharyngeal erythema. No thyromegaly. CARDIOVASCULAR: S1 and S2 present. No murmurs, rubs, or gallops. PULMONARY: Chest is clear to auscultation, no wheezing , no crackles. ABDOMEN: Soft, nontender, nondistended, normoactive bowel sounds. No palpable organomegaly. MUSCULOSKELETAL: No joint swelling or deformity. -EXTREMITIES: No cyanosis, clubbing, or pedal edema. Right leg swelling pink and mild tender NEUROLOGICAL: Gross neurological examination did not reveal any focal deficits. SKIN: No rashes. no petechiae. - Labs CBC & Chem 7: 01/02/24 04:10 01/04/24 06:14 Labs: Abnormal Lab Results - Last 24 Hours (Table) 01/04/24 01/04/24 01/04/24 Range/Units 06:14 07:04 11:52 Sodium 133 L (135-145) mmol/L BUN 48.5 H (9.0-27.0) mg/dL Creatinine 1.8 H (0.6-1.5) mg/dL Est GFR (CKD-EPI) 37 L (>=60) BUN/Creatinine Ratio 26.94 H (12.00-20.00) Ratio POC Glucose (mg/dL) 122 H 178 H (70-110) mg/dL Calcium 7.6 L (8.7-10.3) mg/dL 01/04/24 01/04/24 Range/Units 16:46 20:07 Sodium (135-145) mmol/L BUN (9.0-27.0) mg/dL Creatinine (0.6-1.5) mg/dL Est GFR (CKD-EPI) (>=60) BUN/Creatinine Ratio (12.00-20.00) Ratio POC Glucose (mg/dL) 208 H 187 H (70-110) mg/dL Calcium (8.7-10.3) mg/dL Assessment and Plan Assessment: Right leg cellulitis Bilateral leg swelling/edema Myelodysplastic syndrome on chemotherapy with resultant pancytopenia 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 Continue same treatment. Continue with symptomatic treatment. Resume home medication. Monitor labs and vitals. DVT and GI prophylaxis. Further recommendations as per clinical course of the patient DVT prophylaxis: Subcutaneous Lovenox GI Prophylaxis: Pepcid PT/OT: Pending Prognosis is guarded
[2024-01-05 07:24] LABS: Glucose,Whole Blood 110 mg/dL (70-110)
[2024-01-05 09:02] LABS: Basophils # (A) 0.02 X 10*3/uL (0.00-0.10); Basophils % (A) 0.6 %; Eosinophils # (A) 0.01 X 10*3/uL (0.04-0.35); Eosinophils % (A) 0.3 %; HCT 23.6 % (37.2-50.0); HGB 7.7 g/dL (12.0-17.0); Immature Platelet Fraction 2.4 % (1.1-6.1); Lymphocytes # (A) 0.71 X 10*3/uL (0.90-5.00); Lymphocytes % (A) 21.6 %; MCH 35.8 pg (27.0-32.0); MCHC 32.6 g/dL (32.0-37.0); MCV 109.8 FL (80.0-97.0); Mean Platelet Volume 10.6 FL (9.5-12.2); Monocytes # (A) 0.52 X 10*3/uL (0.20-1.00); Monocytes % (A) 15.8 %; NRBC Per 100 WBC 0 X 10*3/uL (0.00-0.01); Neutrophils # (A) 2.02 X 10*3/uL (1.80-7.70); Neutrophils % (A) 61.4 %; Platelet Count 62 X 10*3/uL (140-440); RBC 2.15 X 10*6/uL (4.10-5.60); RDW 20.6 % (11.5-14.5); WBC 3.29 X 10*3/uL (4.50-10.00)
[2024-01-05 09:06] LABS: BUN/Creat Ratio 26.65 Ratio (12.00-20.00); Blood Urea Nitrogen 45.3 mg/dL (9.0-27.0); Calcium 7.3 mg/dL (8.7-10.3); Carbon Dioxide 23.7 mmol/L (21.6-31.8); Chloride 103 mmol/L (96-109); Glucose 85 mg/dL (70-110); Potassium 4.9 mmol/L (3.5-5.5); Sodium 133 mmol/L (135-145)
[2024-01-05 12:16] LABS: Glucose,Whole Blood 180 mg/dL (70-110)
--- NOTE | 2024-01-05 12:19 | P.PN ---
Subjective 83-year-old male patient with past medical history significant for MDS currently on chemotherapy, diabetes mellitus, hypertension, hyperlipidemia, thyroid disorder, history of BPH, history of macular degeneration who presented to ED with a complaint of right lower extremity swelling, redness, tenderness and pain for 2 weeks. Patient denied any fever or chills. Patient stated that he is unsure but he might have bumped his leg while getting out of the car about 2 weeks ago and started to notice more swelling, redness and pain in the right leg since then. Patient also complaining of loose stools and abdominal distention, denied any abdominal pain. Patient stated that he has chronic lower extremity swelling and takes Lasix for that but right leg has been more swollen and red for last 2 weeks. Patient denied any headache, sore throat, productive cough, chest pain, palpitation, shortness of breath, nausea vomiting abdominal pain dysuria urgency frequency weakness or numbness of the extremities. In the ED patient was afebrile, heart rate 88, respiratory rate 16, blood pressure 131/58, saturating 100% on room air. WBC is 1.8, hemoglobin 7.4, platelet 109. Sodium 132, potassium 4.6, BUN 56, creatinine 2.27, lactic acid 1.9. 12/28/2023--patient was seen and examined today. Patient's hemoglobin dropped to 6.2 today, WBCs 1.4, platelets 72. 1 unit of irradiated packed RBCs ordered. BUN is 60, creatinine 2.3. Nephrology consulted and following. Hematology following. Patient currently on daptomycin per infectious disease. Ultrasound venous was negative for DVT. 12/29/2023--patient was seen and examined today. Remained afebrile, vital stable. WBCs 1.45, hemoglobin 6.8, platelets 73. 1 unit of elevated packed RBCs ordered per hematology. Creatinine trended down to 2.0 today as compared to 2.3. Nephrology following, required straight cath twice, creatinine is 2.3. Patient remains on daptomycin for lower extremity cellulitis, pulmonary following. Given 1 dose of IV Lasix per nephrology. 12/30/23--seen examined today. Remained afebrile, vital stable. Currently has Ulrich catheter, nephrology following, renal function stable. Nephrology recommended to continue bicarbonate drip for now, given Lasix 40 mg once today. Recommended to hold amlodipine for SBP less than 120. Patient was previously on daptomycin, wound culture grew MSSA, antibiotic changed to cefazolin per infectious disease. Currently stable 7.4. WBCs 1.8, platelets 64. BUN patient is 60, creatinine 2.0. 12/30 Patient still with significant right leg cellulitis with redness swelling pain from. IV fluid was discontinued and patient was started on IV Lasix 40 mg twice daily He continued with antibiotics cefazolin with plan to switch to oral Keflex upon discharge Patient has a Ulrich catheter Patient expected to go home upon discharge however we will follow-up with physical therapy evaluation 12/31 Patient right leg cellulitis improving slowly and gradually while he remains on cefazolin. Patient has evidence of slightly worsening liver enzymes. Could be secondary to cefazolin. However it is mild and we will keep monitoring. Patient with no right upper quadrant pain or tenderness or nausea vomiting His leg swelling is also improving slowly and gradually while he remains on IV Lasix. If liver enzymes continue to worsen may consider switching him to oral Keflex or other antibiotic 01/01 Patient right leg still red, mildly warm, nontender. Patient states is much better compared to admission. No other new complaint. Creatinine 1.8 today. Hemoglobin 9.2. Creatinine stable at 1.8. Sodium 133. Liver enzymes pending He remains on cefazolin. he Is also on IV Lasix once daily 01/02 Right leg cellulitis is improving gradually and slowly. Still looks red and warm but regressed in size. He remains on cefazolin He is also on IV Lasix once daily Pancytopenia is stable Creatinine 1.7-1.8 01/03 Patient overall is doing well Right leg cellulitis improving, dressing in place, at bedside Possible discharge in 24 to 48 hours 01/04 Patient right leg cellulitis improving. His creatinine is improving as well and looks stable However patient dropped his hemoglobin 9.6 down to 7.7. He status post 2 units of blood transfusion on admission because of severe anemia related to his MDS We will do anemia workup Will keep monitoring hemoglobin. Will transfuse if hemoglobin less than 7. Discussed with patient and staff and all agree Objective - Vital Signs Vital signs: Vital Signs Temp 97.7 F 01/05/24 07:24 Pulse 71 01/05/24 07:24 Resp 17 01/05/24 07:24 BP 127/58 01/05/24 07:24 Pulse Ox 99 01/05/24 07:24 FiO2 Intake & Output 01/04/24 01/05/24 01/05/24 18:59 06:59 18:59 Intake Total 480 590 Output Total 850 350 Balance -370 240 Weight 94 kg Intake: Oral 480 590 Output: Urine 850 350 Other: Voiding Method Indwelling Catheter Indwelling Catheter Indwelling Catheter # Voids 1 # Bowel Movements 1 1 1 - Exam GENERAL: The patient is alert and oriented x3, not in any acute distress. Well developed, well nourished. HEENT: Pupils are round and equally reacting to light. EOMI. No scleral icterus. No conjunctival pallor. Normocephalic, atraumatic. No pharyngeal erythema. No thyromegaly. CARDIOVASCULAR: S1 and S2 present. No murmurs, rubs, or gallops. PULMONARY: Chest is clear to auscultation, no wheezing , no crackles. ABDOMEN: Soft, nontender, nondistended, normoactive bowel sounds. No palpable organomegaly. MUSCULOSKELETAL: No joint swelling or deformity. -EXTREMITIES: No cyanosis, clubbing, or pedal edema. Right leg swelling pink and mild tender NEUROLOGICAL: Gross neurological examination did not reveal any focal deficits. SKIN: No rashes. no petechiae. - Labs CBC & Chem 7: 01/05/24 05:27 01/05/24 05:27 Labs: Abnormal Lab Results - Last 24 Hours (Table) 01/04/24 01/04/24 01/05/24 Range/Units 16:46 20:07 05:27 WBC 3.29 L (4.50-10.00) X 10*3/uL RBC 2.15 L (4.10-5.60) X 10*6/uL Hgb 7.7 L (12.0-17.0) g/dL Hct 23.6 L (37.2-50.0) % MCV 109.8 H (80.0-97.0) FL MCH 35.8 H (27.0-32.0) pg RDW 20.6 H (11.5-14.5) % Plt Count 62 L (140-440) X 10*3/uL Lymphocytes # 0.71 L (0.90-5.00) X 10*3/uL Eosinophils # 0.01 L (0.04-0.35) X 10*3/uL Sodium (135-145) mmol/L BUN (9.0-27.0) mg/dL Creatinine (0.6-1.5) mg/dL Est GFR (CKD-EPI) (>=60) BUN/Creatinine Ratio (12.00-20.00) Ratio POC Glucose (mg/dL) 208 H 187 H (70-110) mg/dL Calcium (8.7-10.3) mg/dL 01/05/24 01/05/24 Range/Units 05:27 12:14 WBC (4.50-10.00) X 10*3/uL RBC (4.10-5.60) X 10*6/uL Hgb (12.0-17.0) g/dL Hct (37.2-50.0) % MCV (80.0-97.0) FL MCH (27.0-32.0) pg RDW (11.5-14.5) % Plt Count (140-440) X 10*3/uL Lymphocytes # (0.90-5.00) X 10*3/uL Eosinophils # (0.04-0.35) X 10*3/uL Sodium 133 L (135-145) mmol/L BUN 45.3 H (9.0-27.0) mg/dL Creatinine 1.7 H (0.6-1.5) mg/dL Est GFR (CKD-EPI) 39 L (>=60) BUN/Creatinine Ratio 26.65 H (12.00-20.00) Ratio POC Glucose (mg/dL) 180 H (70-110) mg/dL Calcium 7.3 L (8.7-10.3) mg/dL Assessment and Plan Assessment: Right leg cellulitis Bilateral leg swelling/edema Myelodysplastic syndrome on chemotherapy with resultant pancytopenia 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 Continue same treatment. Continue with symptomatic treatment. Resume home medication. Monitor labs and vitals. DVT and GI prophylaxis. Further recommendations as per clinical course of the patient DVT prophylaxis: Subcutaneous Lovenox GI Prophylaxis: Pepcid PT/OT: Pending Prognosis is guarded
--- NOTE | 2024-01-05 12:25 | P.PN ---
Subjective Progress Note Date: 01/05/24 Principal diagnosis: Reason for follow-up is right lower extremity wound and cellulitis Patient is a 83-year-old male with a past medical history significant for diabetes mellitus hypertension hyperlipidemia osteoarthritis MDS presenting to the hospital for evaluation of right lower extremity swelling and redness follow-up he did have small puncture wound that was cultured and started on antibiotic. On today's evaluation that is 01/05/2024,the patient denies any fever or any chills, patient is breathing comfortably on room air, the patient denies chest pain shortness of breath and no significant cough, patient denies abdominal pain, no nausea vomiting or diarrhea. Denies pain to the right lower extremity. Patient white count is 3.29, creatinine is 1.7 Objective - Vital Signs Vital signs: Vital Signs Temp 97.7 F 01/05/24 07:24 Pulse 71 01/05/24 07:24 Resp 17 01/05/24 07:24 BP 127/58 01/05/24 07:24 Pulse Ox 99 01/05/24 07:24 FiO2 Intake & Output 01/04/24 01/05/24 01/05/24 18:59 06:59 18:59 Intake Total 480 590 Output Total 850 350 Balance -370 240 Weight 94 kg Intake: Oral 480 590 Output: Urine 850 350 Other: Voiding Method Indwelling Catheter Indwelling Catheter # Voids 1 # Bowel Movements 1 1 1 - Exam GENERAL DESCRIPTION: An elderly male lying in bed in no distress RESPIRATORY SYSTEM: Unlabored breathing , decreased breath sounds at bases HEART: S1 S2 regular rate and rhythm , ABDOMEN: Soft , no tenderness EXTREMITIES: Right leg swelling redness slightly decreased in intensity no drainage - Labs CBC & Chem 7: 01/05/24 05:27 01/05/24 05:27 Labs: Abnormal Lab Results - Last 24 Hours (Table) 01/04/24 01/04/24 01/04/24 Range/Units 06:14 11:52 16:46 WBC (4.50-10.00) X 10*3/uL RBC (4.10-5.60) X 10*6/uL Hgb (12.0-17.0) g/dL Hct (37.2-50.0) % MCV (80.0-97.0) FL MCH (27.0-32.0) pg RDW (11.5-14.5) % Plt Count (140-440) X 10*3/uL Lymphocytes # (0.90-5.00) X 10*3/uL Eosinophils # (0.04-0.35) X 10*3/uL Sodium 133 L (135-145) mmol/L BUN 48.5 H (9.0-27.0) mg/dL Creatinine 1.8 H (0.6-1.5) mg/dL Est GFR (CKD-EPI) 37 L (>=60) BUN/Creatinine Ratio 26.94 H (12.00-20.00) Ratio POC Glucose (mg/dL) 178 H 208 H (70-110) mg/dL Calcium 7.6 L (8.7-10.3) mg/dL 01/04/24 01/05/24 01/05/24 Range/Units 20:07 05:27 05:27 WBC 3.29 L (4.50-10.00) X 10*3/uL RBC 2.15 L (4.10-5.60) X 10*6/uL Hgb 7.7 L (12.0-17.0) g/dL Hct 23.6 L (37.2-50.0) % MCV 109.8 H (80.0-97.0) FL MCH 35.8 H (27.0-32.0) pg RDW 20.6 H (11.5-14.5) % Plt Count 62 L (140-440) X 10*3/uL Lymphocytes # 0.71 L (0.90-5.00) X 10*3/uL Eosinophils # 0.01 L (0.04-0.35) X 10*3/uL Sodium 133 L (135-145) mmol/L BUN 45.3 H (9.0-27.0) mg/dL Creatinine 1.7 H (0.6-1.5) mg/dL Est GFR (CKD-EPI) 39 L (>=60) BUN/Creatinine Ratio 26.65 H (12.00-20.00) Ratio POC Glucose (mg/dL) 187 H (70-110) mg/dL Calcium 7.3 L (8.7-10.3) mg/dL Assessment and Plan (1) Cellulitis of right leg Current Visit: Yes Status: Acute Priority: High Code(s): L03.115 - CELLULITIS OF RIGHT LOWER LIMB SNOMED Code(s): 09100642515349597 (2) MSSA (methicillin susceptible Staphylococcus aureus) infection Current Visit: Yes Status: Acute Code(s): A49.01 - METHICILLIN SUSCEP STAPH INFECTION, UNSP SITE SNOMED Code(s): 554653467 Plan: 1patient presented to hospital with a left lower extremity pain swelling and redness in this patient who did have a small wound with some purulent drainage has been culture with surrounding cellulitis likely from gram-positive skin seda such as staph/strep. 2patient local culture has been finalized with MSSA for the patient been covered with the cefazolin 2 g every 12 hours 3-patient right lower extremity swelling redness slowly decreasing continue with the cefazolin finishing therapy with oral Keflex Dictation was produced using [employer] dictation software. please excuse any grammatical, word or spelling errors. Time with Patient: Less than 30
--- NOTE | 2024-01-05 13:23 | P.PN ---
Subjective patient is seen for follow-up for acute kidney injury. Currently with indwelling Ulrich catheter. Obtained on IV Lasix. No significant complaints today. Serum creatinine at 1.7 today. Objective - Vital Signs Vital signs: Vital Signs Temp 97.7 F 01/05/24 07:24 Pulse 71 01/05/24 07:24 Resp 17 01/05/24 07:24 BP 127/58 01/05/24 07:24 Pulse Ox 99 01/05/24 07:24 FiO2 Intake & Output 01/04/24 01/05/24 01/05/24 18:59 06:59 18:59 Intake Total 480 590 Output Total 850 350 775 Balance -370 240 -775 Weight 94 kg Intake: Oral 480 590 Output: Urine 850 350 775 Other: Voiding Method Indwelling Catheter Indwelling Catheter Indwelling Catheter # Voids 1 # Bowel Movements 1 1 1 - Exam patient is awake, comfortable, no acute distress. Examination of the heart S1 and S2 Examination of the lungs bilateral breath sounds are heard Abdomen is soft nontender Examination of lower extremities shows edema 1+ bilaterally - Labs CBC & Chem 7: 01/05/24 05:27 01/05/24 05:27 Labs: Abnormal Lab Results - Last 24 Hours (Table) 01/04/24 01/04/24 01/05/24 Range/Units 16:46 20:07 05:27 WBC 3.29 L (4.50-10.00) X 10*3/uL RBC 2.15 L (4.10-5.60) X 10*6/uL Hgb 7.7 L (12.0-17.0) g/dL Hct 23.6 L (37.2-50.0) % MCV 109.8 H (80.0-97.0) FL MCH 35.8 H (27.0-32.0) pg RDW 20.6 H (11.5-14.5) % Plt Count 62 L (140-440) X 10*3/uL Lymphocytes # 0.71 L (0.90-5.00) X 10*3/uL Eosinophils # 0.01 L (0.04-0.35) X 10*3/uL Sodium (135-145) mmol/L BUN (9.0-27.0) mg/dL Creatinine (0.6-1.5) mg/dL Est GFR (CKD-EPI) (>=60) BUN/Creatinine Ratio (12.00-20.00) Ratio POC Glucose (mg/dL) 208 H 187 H (70-110) mg/dL Calcium (8.7-10.3) mg/dL 01/05/24 01/05/24 Range/Units 05:27 12:14 WBC (4.50-10.00) X 10*3/uL RBC (4.10-5.60) X 10*6/uL Hgb (12.0-17.0) g/dL Hct (37.2-50.0) % MCV (80.0-97.0) FL MCH (27.0-32.0) pg RDW (11.5-14.5) % Plt Count (140-440) X 10*3/uL Lymphocytes # (0.90-5.00) X 10*3/uL Eosinophils # (0.04-0.35) X 10*3/uL Sodium 133 L (135-145) mmol/L BUN 45.3 H (9.0-27.0) mg/dL Creatinine 1.7 H (0.6-1.5) mg/dL Est GFR (CKD-EPI) 39 L (>=60) BUN/Creatinine Ratio 26.65 H (12.00-20.00) Ratio POC Glucose (mg/dL) 180 H (70-110) mg/dL Calcium 7.3 L (8.7-10.3) mg/dL Assessment and Plan Assessment: 1. Acute kidney injury secondary to ATN secondary to anemia. Creatinine 1.1 in May 2023. Renal function stable with creatinine 1.7-1.8. Nonoliguric. No hydronephrosis noted on kidney ultrasound. UA fairly benign. No hydronephrosis noted on kidney ultrasound. 2. Lower extremity cellulitis on antibiotics. Wound culture positive for staph. 3. MDS maintained on chemotherapy. Status post blood transfusion this admission. Also received IV DDAVP. Oncology following. 4. Benign hypertension. Controlled. 5. Diabetes mellitus. 6. Lower extremity edema. Improving with diuresis. 7. Hypervolemic hyponatremia. Stable. 8. Metabolic acidosis secondary to acute kidney injury status post bicarb drip. On oral bicarb now. Better. Plan: continue antibiotics Continue with IV Lasix continue oral sodium bicarb
[2024-01-05 16:14] LABS: % Iron Saturation 28.5 (12.00-50.00)
[2024-01-05 17:26] LABS: Glucose,Whole Blood 189 mg/dL (70-110)
[2024-01-05 20:01] LABS: Glucose,Whole Blood 255 mg/dL (70-110)
[2024-01-06 07:36] LABS: Glucose,Whole Blood 102 mg/dL (70-110)
[2024-01-06 08:03] VITALS: RESP 18
[2024-01-06 08:17] LABS: Basophils # (A) 0.02 X 10*3/uL (0.00-0.10); Basophils % (A) 0.5 %; Eosinophils # (A) 0.02 X 10*3/uL (0.04-0.35); Eosinophils % (A) 0.5 %; HCT 25.3 % (37.2-50.0); HGB 8.3 g/dL (12.0-17.0); Lymphocytes # (A) 1.06 X 10*3/uL (0.90-5.00); Lymphocytes % (A) 24.1 %; MCH 35.5 pg (27.0-32.0); MCHC 32.8 g/dL (32.0-37.0); MCV 108.1 FL (80.0-97.0); Monocytes # (A) 0.56 X 10*3/uL (0.20-1.00); Monocytes % (A) 12.7 %; NRBC Per 100 WBC 0 X 10*3/uL (0.00-0.01); Neutrophils # (A) 2.73 X 10*3/uL (1.80-7.70); Platelet Count 80 X 10*3/uL (140-440); RBC 2.34 X 10*6/uL (4.10-5.60); RDW 20.1 % (11.5-14.5)
[2024-01-06] MEDS: FOLIC ACID 1 MG TAB PO SCH (08:35)
[2024-01-06 11:41] LABS: Calcium 7.5 mg/dL (8.7-10.3); Carbon Dioxide 21.9 mmol/L (21.6-31.8); Chloride 100 mmol/L (96-109); Glucose 103 mg/dL (70-110); Potassium 4.4 mmol/L (3.5-5.5); Sodium 129 mmol/L (135-145)
[2024-01-06 12:09] LABS: Glucose,Whole Blood 179 mg/dL (70-110)
--- NOTE | 2024-01-06 13:15 | P.PN ---
Subjective Progress Note Date: 01/06/24 Principal diagnosis: Reason for follow-up is right lower extremity wound and cellulitis Patient is a 83-year-old male with a past medical history significant for diabetes mellitus hypertension hyperlipidemia osteoarthritis MDS presenting to the hospital for evaluation of right lower extremity swelling and redness follow-up he did have small puncture wound that was cultured and started on antibiotic. On today's evaluation that is 01/06/2024,the patient remains to be afebrile, patient is on room air not requiring supplemental oxygen and denies any shortness of breath no chest pain or cough.Patient denies having any nausea or vomiting, no abdominal pain and no diarrhea right lower extremity swelling redness has decreased no drainage. Patient white count is 4.40, creatinine is 1.6 Objective - Vital Signs Vital signs: Vital Signs Temp 97.6 F 01/06/24 07:33 Pulse 73 01/06/24 07:33 Resp 18 01/06/24 07:33 BP 138/67 01/06/24 07:33 Pulse Ox 96 01/06/24 07:33 FiO2 Intake & Output 01/05/24 01/06/24 01/06/24 18:59 06:59 18:59 Intake Total 580 590 Output Total 1100 550 125 Balance -520 40 -125 Weight 95 kg Intake: Oral 580 590 Output: Urine 1100 550 125 Other: Voiding Method Indwelling Catheter Indwelling Catheter # Bowel Movements 1 1 1 - Exam GENERAL DESCRIPTION: An elderly male lying in bed in no distress RESPIRATORY SYSTEM: Unlabored breathing , decreased breath sounds at bases HEART: S1 S2 regular rate and rhythm , ABDOMEN: Soft , no tenderness EXTREMITIES: Right leg swelling redness slightly decreased in intensity no drainage - Labs CBC & Chem 7: 01/06/24 06:00 01/06/24 06:00 Labs: Abnormal Lab Results - Last 24 Hours (Table) 01/05/24 01/05/24 01/05/24 Range/Units 12:14 12:19 12:19 WBC (4.50-10.00) X 10*3/uL RBC (4.10-5.60) X 10*6/uL Hgb (12.0-17.0) g/dL Hct (37.2-50.0) % MCV (80.0-97.0) FL MCH (27.0-32.0) pg RDW (11.5-14.5) % Plt Count (140-440) X 10*3/uL Eosinophils # (0.04-0.35) X 10*3/uL POC Glucose (mg/dL) 180 H (70-110) mg/dL TIBC 193 L (228-460) UG/DL Transferrin 138.0 L (204.0-354.0) mg/dL Ferritin 956.0 H (10.0-322.0) ng/mL Folate 4.10 L (4.40-31.00) ng/mL 01/05/24 01/05/24 01/06/24 Range/Units 17:25 20:00 06:00 WBC 4.40 L (4.50-10.00) X 10*3/uL RBC 2.34 L (4.10-5.60) X 10*6/uL Hgb 8.3 L (12.0-17.0) g/dL Hct 25.3 L (37.2-50.0) % MCV 108.1 H (80.0-97.0) FL MCH 35.5 H (27.0-32.0) pg RDW 20.1 H (11.5-14.5) % Plt Count 80 L (140-440) X 10*3/uL Eosinophils # 0.02 L (0.04-0.35) X 10*3/uL POC Glucose (mg/dL) 189 H 255 H (70-110) mg/dL TIBC (228-460) UG/DL Transferrin (204.0-354.0) mg/dL Ferritin (10.0-322.0) ng/mL Folate (4.40-31.00) ng/mL Assessment and Plan (1) Cellulitis of right leg Current Visit: Yes Status: Acute Priority: High Code(s): L03.115 - CELLULITIS OF RIGHT LOWER LIMB SNOMED Code(s): 10465568732821956 (2) MSSA (methicillin susceptible Staphylococcus aureus) infection Current Visit: Yes Status: Acute Code(s): A49.01 - METHICILLIN SUSCEP STAPH INFECTION, UNSP SITE SNOMED Code(s): 938592068 Plan: 1patient presented to hospital with a left lower extremity pain swelling and redness in this patient who did have a small wound with some purulent drainage has been culture with surrounding cellulitis likely from gram-positive skin seda such as staph/strep. 2patient local culture has been finalized with MSSA for the patient been covered with the cefazolin 2 g every 12 hours 3-patient right lower extremity swelling redness has shown improvement on cefazolin to continue consider a 5-day course of Keflex on discharge Dictation was produced using [employer] dictation software. please excuse any grammatical, word or spelling errors. Time with Patient: Less than 30
[2024-01-06 13:18] VITALS: BP 136/68; PULSE 93; TEMP 98.2
--- NOTE | 2024-01-06 13:47 | P.PN ---
Subjective Patient is seen for follow-up for acute kidney injury. Currently with indwelling Ulrich catheter. maintained on IV Lasix. No significant complaints today. Serum creatinine at 1.6 today. Objective - Vital Signs Vital signs: Vital Signs Temp 98.2 F 01/06/24 13:03 Pulse 93 01/06/24 13:03 Resp 18 01/06/24 13:03 BP 136/68 01/06/24 13:03 Pulse Ox 99 01/06/24 13:03 FiO2 Intake & Output 01/05/24 01/06/24 01/06/24 18:59 06:59 18:59 Intake Total 580 590 Output Total 1100 550 125 Balance -520 40 -125 Weight 95 kg Intake: Oral 580 590 Output: Urine 1100 550 125 Other: Voiding Method Indwelling Catheter Indwelling Catheter Indwelling Catheter # Bowel Movements 1 1 1 - Exam patient is awake, comfortable, no acute distress. Examination of the heart S1 and S2 Examination of the lungs bilateral breath sounds are heard Abdomen is soft nontender Examination of lower extremities shows edema 1+ bilaterally - Labs CBC & Chem 7: 01/06/24 06:00 01/06/24 06:00 Labs: Abnormal Lab Results - Last 24 Hours (Table) 01/05/24 01/05/24 01/05/24 Range/Units 12:19 12:19 17:25 WBC (4.50-10.00) X 10*3/uL RBC (4.10-5.60) X 10*6/uL Hgb (12.0-17.0) g/dL Hct (37.2-50.0) % MCV (80.0-97.0) FL MCH (27.0-32.0) pg RDW (11.5-14.5) % Plt Count (140-440) X 10*3/uL Eosinophils # (0.04-0.35) X 10*3/uL Sodium (135-145) mmol/L BUN (9.0-27.0) mg/dL Creatinine (0.6-1.5) mg/dL Est GFR (CKD-EPI) (>=60) BUN/Creatinine Ratio (12.00-20.00) Ratio POC Glucose (mg/dL) 189 H (70-110) mg/dL Calcium (8.7-10.3) mg/dL TIBC 193 L (228-460) UG/DL Transferrin 138.0 L (204.0-354.0) mg/dL Ferritin 956.0 H (10.0-322.0) ng/mL Folate 4.10 L (4.40-31.00) ng/mL 01/05/24 01/06/24 01/06/24 Range/Units 20:00 06:00 06:00 WBC 4.40 L (4.50-10.00) X 10*3/uL RBC 2.34 L (4.10-5.60) X 10*6/uL Hgb 8.3 L (12.0-17.0) g/dL Hct 25.3 L (37.2-50.0) % MCV 108.1 H (80.0-97.0) FL MCH 35.5 H (27.0-32.0) pg RDW 20.1 H (11.5-14.5) % Plt Count 80 L (140-440) X 10*3/uL Eosinophils # 0.02 L (0.04-0.35) X 10*3/uL Sodium 129 L (135-145) mmol/L BUN 44.0 H (9.0-27.0) mg/dL Creatinine 1.6 H (0.6-1.5) mg/dL Est GFR (CKD-EPI) 42 L (>=60) BUN/Creatinine Ratio 27.50 H (12.00-20.00) Ratio POC Glucose (mg/dL) 255 H (70-110) mg/dL Calcium 7.5 L (8.7-10.3) mg/dL TIBC (228-460) UG/DL Transferrin (204.0-354.0) mg/dL Ferritin (10.0-322.0) ng/mL Folate (4.40-31.00) ng/mL 01/06/24 Range/Units 12:09 WBC (4.50-10.00) X 10*3/uL RBC (4.10-5.60) X 10*6/uL Hgb (12.0-17.0) g/dL Hct (37.2-50.0) % MCV (80.0-97.0) FL MCH (27.0-32.0) pg RDW (11.5-14.5) % Plt Count (140-440) X 10*3/uL Eosinophils # (0.04-0.35) X 10*3/uL Sodium (135-145) mmol/L BUN (9.0-27.0) mg/dL Creatinine (0.6-1.5) mg/dL Est GFR (CKD-EPI) (>=60) BUN/Creatinine Ratio (12.00-20.00) Ratio POC Glucose (mg/dL) 179 H (70-110) mg/dL Calcium (8.7-10.3) mg/dL TIBC (228-460) UG/DL Transferrin (204.0-354.0) mg/dL Ferritin (10.0-322.0) ng/mL Folate (4.40-31.00) ng/mL Assessment and Plan Assessment: 1. Acute kidney injury secondary to ATN secondary to anemia. Creatinine 1.1 in May 2023. Renal function stable with creatinine 1.7-1.6. Nonoliguric. No hydronephrosis noted on kidney ultrasound. UA fairly benign. No hydronephrosis noted on kidney ultrasound. 2. Lower extremity cellulitis on antibiotics. Wound culture positive for staph. 3. MDS maintained on chemotherapy. Status post blood transfusion this admission. Also received IV DDAVP. Oncology following. 4. Benign hypertension. Controlled. 5. Diabetes mellitus. 6. Lower extremity edema. Improving with diuresis. 7. Hypervolemic hyponatremia. Stable. 8. Metabolic acidosis secondary to acute kidney injury status post bicarb drip. On oral bicarb now. Better. Plan: continue antibiotics voiding trial today. If Ulrich catheter is reinserted, patient will need to follow-up as outpatient with urology. continue oral sodium bicarb
[2024-01-06 17:05] LABS: Glucose,Whole Blood 284 mg/dL (70-110)
--- NOTE | 2024-01-12 10:04 | P.DS ---
Providers Date of admission: 12/27/23 11:26 Expected date of discharge: 01/06/24 Attending physician: Derrick Mckenna MD Consults: 12/27/23 11:26 Consult Physician Routine Consulting Provider: Sebastian Hutchinson Consult Reason/Comments: Cellulitis, myelodysplasia Do you want consulting provider notified?: Yes Consult Physician Routine Consulting Provider: Isaiah Perales Consult Reason/Comments: cellulitis Do you want consulting provider notified?: Yes 12/28/23 10:33 Consult Physician Routine Consulting Provider: Marah Shen Consult Reason/Comments: VLAD on CKD Do you want consulting provider notified?: Yes Primary care physician: Alicia Jones Hospital Course: Final diagnosis Right leg cellulitis, present on admission improving Bilateral leg swelling/edema Urinary retention requiring indwelling Ulrich catheter Myelodysplastic syndrome on chemotherapy with resultant pancytopenia 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 Patient will follow-up with Dr. Jones in the outpatient setting upon discharge. Patient is to continue with oral antibiotics and outpatient follow-up with infectious disease along with the wound care center, cardiology, urology outpatient as scheduled. Total time taken is greater than 35 minutes. Hospital course This is a 83-year-old male who was recently admitted with concerns of right lower extremity cellulitis with significant lower extremity swelling and edema being closely monitored. Multiple consultations following patient maintained on IV cefazolin showing improvements and also diuretic therapy and has been transition to oral and cleared by consultations. Patient reports to feeling better had an indwelling Ulrich catheter attempted trial void although retaining and will replace indwelling Ulrich catheter and have patient follow-up with urology outpatient. Please refer to other consultation notes for further HPI. Currently no reports of chest pain, shortness of breath, or palpitations. Patient is afebrile. No reports of nausea or vomiting and patient is tolerating diet. Patient will be discharged home today. Physical exam: Gen: This is a 83-year-old male who is awake, alert and oriented x 3, well- developed, elderly appearing HEENT: Head is atraumatic, normocephalic. Pupils equal, round. Sclerae is anicteric. NECK: Supple. No JVD. No lymphadenopathy. No thyromegaly. LUNGS: Clear to auscultation. No wheezes or rhonchi. No intercostal retractions. HEART: S1, S2 are muffled ABDOMEN: Soft. Bowel sounds are present. No masses. No tenderness. EXTREMITIES: No pedal edema. No calf tenderness. Bilateral lower extremity edema, improving with chronic skin changes NEUROLOGICAL: Patient is awake, alert and oriented x3. Cranial nerves 2 through 12 are grossly intact. Please refer to medication reconciliation sheet for a list of medications. The impression and plan of care has been dictated by Sophia Montoya, Nurse Practitioner as directed. Dr. Vance MD I have performed a history and examination and MDM of this patient, discussed the same with the dictator, and agree with the dictator's assessment and plan as written ,documented as a scribe. Based on total visit time, I have performed more than 50% of the visit. Patient Condition at Discharge: Fair Plan - Discharge Summary Discharge Rx Participant: Yes New Discharge Prescriptions: New Acetaminophen Tab [Tylenol] 650 mg PO Q6HR PRN tab PRN Reason: Mild Pain Or Fever > 100.5 Folic Acid 1 mg PO DAILY #30 tab Cephalexin [Keflex] 500 mg PO Q6HR 5 Days #20 cap Sodium Bicarbonate Tab 650 mg PO BID #60 tab Continue Levothyroxine Sodium [Synthroid] 50 mcg PO DAILY Ferrous Sulfate [Iron (65 MG Elemental)] 325 mg PO DAILY Insulin Glargine,Hum.rec.anlog [Basaglar Kwikpen U-100] 20 unit SQ HS Acyclovir [Zovirax] 400 mg PO DAILY Diclofenac Sodium [Voltaren Arthritis Pain 1% Gel] 2 gm TOPICAL QID Insulin Glargine,Hum.rec.anlog [Basaglar Kwikpen U-100] See Protocol SQ DAILY Ibuprofen [Motrin] 800 mg PO TID PRN PRN Reason: Pain metFORMIN HCL 1,000 mg PO BID Changed Furosemide [Lasix] 40 mg PO DAILY 30 Days #60 tab Discontinued lisinopriL 40 mg PO HS hydroCHLOROthiazide 25 mg PO DAILY Lovastatin [Mevacor] 40 mg PO HS amLODIPine [Norvasc] 10 mg PO DAILY Discharge Medication List Levothyroxine Sodium [Synthroid] 50 mcg PO DAILY 03/29/14 [History] Ferrous Sulfate [Iron (65 MG Elemental)] 325 mg PO DAILY 01/20/20 [History] Acyclovir [Zovirax] 400 mg PO DAILY 12/27/23 [History] Diclofenac Sodium [Voltaren Arthritis Pain 1% Gel] 2 gm TOPICAL QID 12/27/23 [History] Ibuprofen [Motrin] 800 mg PO TID PRN 12/27/23 [History] Insulin Glargine,Hum.rec.anlog [Basaglar Kwikpen U-100] 20 unit SQ HS 12/27/23 [History] Insulin Glargine,Hum.rec.anlog [Basaglar Kwikpen U-100] See Protocol SQ DAILY 12/27/23 [History] metFORMIN HCL 1,000 mg PO BID 12/27/23 [History] Acetaminophen Tab [Tylenol] 650 mg PO Q6HR PRN tab 01/06/24 [Rx] Cephalexin [Keflex] 500 mg PO Q6HR 5 Days #20 cap 01/06/24 [Rx] Folic Acid 1 mg PO DAILY #30 tab 01/06/24 [Rx] Furosemide [Lasix] 40 mg PO DAILY 30 Days #60 tab 01/06/24 [Rx] Sodium Bicarbonate Tab 650 mg PO BID #60 tab 01/06/24 [Rx] Follow up Appointment(s)/Referral(s): Marah Shen MD [STAFF PHYSICIAN] - 02/09/24 1:40 pm (appointment with NEHAL Esparza) Stefan Celeste MD [STAFF PHYSICIAN] - 1 Week (Patient to make own follow-up appt. r/t retention and genital swelling. Office closed at time of discharge. ) Alicia Jones MD [Primary Care Provider] - 01/08/24 10:30 am (appointment with Lana CALVERT) Sebastian Hutchinson MD [STAFF PHYSICIAN] - 01/23/24 3:30 pm Isaiah Perales MD [STAFF PHYSICIAN] - 01/12/24 3:30 pm Ambulatory/Diagnostic Orders: Basic Metabolic Panel [LAB.AMB] Time Frame: 3 Days, Location: None Selected Patient Instructions/Handouts: Cephalexin (By mouth), Furosemide (By mouth), Folic Acid (By mouth), Sodium Bicarbonate (By mouth), Chronic Kidney Disease (DC), Cellulitis (GEN), Ulrich Catheter Placement and Care (DC) Activity/Diet/Wound Care/Special Instructions: Activity limited until follow-up Follow-up with oncology outpatient Follow-up with infectious disease outpatient Follow-up with primary care provider on discharge Continue holding blood pressure medication for now until follow-up Continue antibiotics for the next 5 days per ID recommendations Repeat labs in 2 to 3 days to monitor BMP Continue use Anthony wraps to bilateral lower extremities from the toes up to the knees and elevate while at rest Discharge Disposition: HOME SELF-CARE
--- NOTE | 2024-01-21 13:24 | CDI ---
Documentation Clarification Form Date: 01/21/2024 01:11:38 PM From: Suzan Motta Admit Date: 12/27/2023 11:26:00 AM Patient Name: Arpit Bermeo Visit Number: [id number] Discharge Date: 01/06/2024 06:42:00 PM ATTENTION: The Clinical Documentation Specialists (CDI) and [facility] Coding Staff appreciate your assistance in clarifying documentation. Please respond to the clarification below the line at the bottom and electronically sign. The CDI & [facility] Coding staff will review the response and follow-up if needed. Please note: Queries are made part of the Legal Health Record. If you have any questions, please contact the author of this message via ITS. Doctor/Provider: Derrick Mckenna RLL cellulitis is documented throughout the chart and patient is noted to have Diabetes also documented throughout the chart . Please clarify if there is a relationship between the cellulitis and diabetes. History/Risk Factors: Cellulitis RLE Diabetes with CKD. Patient on Insulin and oral antidiabetic. Clinical Indicators: Elevated glucose 127, 181, 191, 160 Treatment: Levaquin, Kefzol, Insulin and Metformin Please clarify the relationship, if any, which is clinically appropriate for this patient: [ ] RLE cellulitis is due to diabetes. [ x ] RLE cellulitis is not due to diabetes. [ ] Other explanation of clinical findings (please specify) [ ] Unable to determine (no explanation for clinical findings) MTDD
== END 2024-01-06 18:42 | disposition home or self-care (01) | DRG 602 ==
LOC: EC 09:23 → 5NMEDONC 11:26
PROVIDERS: ADMIT Internal Medicine; ATTEND Internal Medicine
DX: L03.115 Cellulitis of right lower limb (principal); D61.810 Antineoplastic chemotherapy induced pancytopenia; N17.0 Acute kidney failure with tubular necrosis; E87.1 Hypo-osmolality and hyponatremia; E87.20 Acidosis, unspecified; M19.90 Unspecified osteoarthritis, unspecified site; I12.9 Hypertensive chronic kidney disease with stage 1 through stage 4 chronic kidney disease, or unspecified chronic kidney disease; N18.9 Chronic kidney disease, unspecified; D63.1 Anemia in chronic kidney disease; N40.1 Benign prostatic hyperplasia with lower urinary tract symptoms; R33.8 Other retention of urine; B95.61 Methicillin susceptible Staphylococcus aureus infection as the cause of diseases classified elsewhere; D46.9 Myelodysplastic syndrome, unspecified; E03.9 Hypothyroidism, unspecified; E11.22 Type 2 diabetes mellitus with diabetic chronic kidney disease; E78.5 Hyperlipidemia, unspecified; E86.9 Volume depletion, unspecified; E87.70 Fluid overload, unspecified; T45.1X5A Adverse effect of antineoplastic and immunosuppressive drugs, initial encounter; Z79.4 Long term (current) use of insulin; Z79.84 Long term (current) use of oral hypoglycemic drugs; Z79.890 Hormone replacement therapy; Z79.899 Other long term (current) drug therapy; Z85.828 Personal history of other malignant neoplasm of skin; Z86.19 Personal history of other infectious and parasitic diseases; H35.30 Unspecified macular degeneration; R74.01 Elevation of levels of liver transaminase levels; R19.7 Diarrhea, unspecified
CPT/HCPCS: 36415; 76770; 80048; 80053; 80076; 81003; 82272; 82550; 82607; 82728; 82746; 83036; 83540; 83550; 83605; 83735; 85025; 86850; 86900; 86901; 86920; 87040; 87045; 87046; 87070; 87075; 87077; 87186; 87205; 87324; 93970; 96365; 99285

== ENCOUNTER → 2024-01-09 | Outpatient (CLI) | payer MEDICARE, BC ==
[2024-01-09 16:59] LABS: BUN/Creat Ratio 25.33 Ratio (12.00-20.00); Blood Urea Nitrogen 45.6 mg/dL (9.0-27.0); Calcium 7.9 mg/dL (8.7-10.3); Carbon Dioxide 19.5 mmol/L (21.6-31.8); Chloride 101 mmol/L (96-109); Glucose 145 mg/dL (70-110); Potassium 4.5 mmol/L (3.5-5.5); Sodium 133 mmol/L (135-145)
== END | disposition home or self-care (01) ==
LOC: LABWHC1 10:06
PROVIDERS: ATTEND Registered Nurse
DX: Z00.00 Encounter for general adult medical examination without abnormal findings
CPT/HCPCS: 36415; 80048